=== PATIENT | male | born 1965 | race Caucasian/White ===

== ENCOUNTER 2021-09-02 17:45 | Inpatient (IN) | payer OTHER, SELFPAY ==
--- NOTE | 2021-09-02 18:03 | ED.PSYCH ---
HPI - Psych General Chief Complaint: Anxiety Stated Complaint: anxiety Time Seen by Provider: 09/02/21 17:59 Source: patient Mode of arrival: ambulatory Limitations: no limitations History of Present Illness HPI Narrative: 56 year old male past medical history significant for anxiety presents to the emergency department with racing thoughts, and anxiety x3 days progressively worsening. Patient tells me 3 days ago he was discharged from the hospital where he was admitted for 2 weeks for an intentional clonazepam overdose. He tells me ever since he got out everything seems to be going over his head, he tells me he can not handle daily stressors he feels overwhelmed, racing thoughts. He tells me he has been pacing around his house for the past 3 days not sleeping well. He tells me I just feel like I want to kill everyone I asked him what he meant by that he tells me I do not know not literally. He denies visual, auditory and tactile hallucinations. He denies suicidal ideation and homicidal ideation. However, he tells me if things do not get better he feels like he is going to become suicidal. No medical complaints at this time. MD complaint: suicidal ideation Related Data Home Medications Medication Instructions Recorded Confirmed aripiprazole 10 mg tablet 1 tab PO QAM 09/02/21 09/02/21 buprenorphine 12 mg-naloxone 3 mg 1 film SUBLINGUAL BID 09/02/21 09/02/21 sublingual film buspirone 30 mg tablet 1 tab PO BID 09/02/21 09/02/21 clonazepam 1 mg tablet 1 tab PO TID PRN 09/02/21 09/02/21 eszopiclone 3 mg tablet 1 tab PO BEDTIME PRN 09/02/21 09/02/21 fluticasone propionate 50 2 spray INTRANASAL DAILY 09/02/21 09/02/21 mcg/actuation nasal spray,suspension gabapentin 300 mg capsule 1 cap PO BID 09/02/21 09/02/21 hydroxyzine HCl 25 mg tablet 1 tab PO QID 09/02/21 09/02/21 naloxone 4 mg/actuation nasal spray 1 spray INTRANASAL PER PKG DIR PRN 09/02/21 09/02/21 nicotine (polacrilex) 4 mg gum 4 mg PO Q2H PRN 09/02/21 09/02/21 nicotine 21 mg/24 hr daily 1 patch TOPICAL DAILY 09/02/21 09/02/21 transdermal patch propranolol 10 mg tablet 1 tab PO BID 09/02/21 09/02/21 venlafaxine 150 mg 1 cap PO QAM 09/02/21 09/02/21 capsule,extended release 24 hr Allergies Allergy/AdvReac Type Severity Reaction Status Date / Time No Known Allergies Allergy Verified 09/02/21 20:06 Review of Systems Review of Systems: Constitutional : No Fever, No Chills ENT/Mouth : No sore throat, No Rhinorrhea Eyes: No Eye Pain, No Swelling, No Redness Cardiovascular : No Chest Pain, No SOB Respiratory : No Cough, No Sputum Gastrointestinal : No Nausea, No Vomiting, No Diarrhea, No abdominal Pain Genitourinary : No Dysuria, No Hematuria Musculoskeletal : No joint pain, No Myalgias, No Joint Swelling Skin : No Skin Lesions, No rash Neuro : No Weakness, No Numbness Psych : No Anxiety, No Depression, No SI/HI/AH/VH All other systems reviewed and are negative Yes all other systems are reviewed and are negative [facility] Past Medical History Attestation statement: The following information was validated with the patient. Source: old records reviewed and nursing notes reviewed Social History Social History Advance Directives: No Advance Directives Information Provided: No Physical Exam Vital Signs: Vital Signs: Last Vital Signs Temp 97.2 F 09/02/21 20:39 Pulse 83 09/02/21 20:39 Resp 16 09/02/21 18:05 BP 125/87 09/02/21 20:39 Pulse Ox 95 09/02/21 20:39 BMI result Body Mass Index 36.2 VSS Appearance: Alert.? Oriented X3.? No acute distress.? Head: Normocephalic, atraumatic, no step-offs or deformities Eyes: Pupils equal, round and reactive to light.? ENT: Pharynx normal.? Neck: Normal inspection.? Neck supple.? CVS: Normal heart rate and rhythm.? Pulses normal.? Respiratory: No respiratory distress.? Breath sounds normal.? Abdomen: Soft and nontender.? Skin: Skin warm and dry.? Normal skin color.? Normal skin turgor.? Extremities: No lower extremity edema.? No calf ttp. 5/5 strength to bilateral upper and lower extremities Back: No midline tenderness, no C-spine tenderness, full range of motion, no CVA tenderness bilaterally Neuro: Oriented X 3.? No motor deficit.? No sensory deficit. CN 2-12 intact Course Reevaluation(s) Reevaluation #1: Jannie from care team saw patient. Clarification patient got out of [facility] the detox on August 29 seen by N on the . Time: 21:45 Reevaluation #2: CBC within normal limits. No acute electrolyte abnormalities. Transaminases elevated, alk-phos elevated and bilirubin elevated however patient is not tender upon palpation to abdomen. No abdominal complaints. Could be chronic in nature. Urine clean. Urine positive for fentanyl, marijuana. Negative for ethanol. Patient COVID negative. At this time he will be placed in physician observation to allow more time to be evaluated by the behavioral health team in the morning. At time observation was started patient common cooperative no acute distress. Vital signs within normal limits. Time: 22:38 MDM - Psych MDM Narrative Medical decision making narrative: 1804 56 yo m pmhx anxiety presents w/ recurrent panic attacks and agoraphobia X1 week worsening. Currently denying SI and HI. Denies visual, auditory and tactile hallucinations. Physical exam significant for an anxious 56-year-old male. Neuro intact to nonfocal. Lungs clear regular rate and rhythm. Plan basic labs, N consult. Medical Records Attestation: I reviewed the patient's medical records. Lab Data Attestation: I reviewed the patient's lab results. Result diagrams: 09/02/21 19:52 09/02/21 19:52 Labs: Lab Results 09/02/21 09/02/21 09/02/21 Range/Units 18:19 18:19 18:19 WBC (4.8-10.8) X10*3/uL RBC (4.60-5.80) X10*6/uL Hgb (14.0-18.0) g/dl Hct (42.0-52.0) % MCV (80.0-98.0) fL MCH (27.0-33.0) pg MCHC (31.0-36.0) g/dl RDW (11.0-16.0) % Plt Count (160-400) X10*3/uL MPV (9.4-12.4) fL Immature Gran % (Auto) Neut % (Auto) Lymph % (Auto) Dickenson % (Auto) Eos % (Auto) Baso % (Auto) Lymph # (Auto) Dickenson # (Auto) Eos # (Auto) Baso # (Auto) Abs Immat Gran (auto) Absolute Neuts (auto) Absolute Nucleated RBC (0.0-0.012) X10*3/uL Nucleated RBC % (auto) (0.0-0.2) /100WBC Neutrophils % (Manual) (45-73) % Lymphocytes % (Manual) (20-40) % Monocytes % (Manual) (2-11) % Eosinophils % (Manual) (0-4) % Abs Neuts (Manual) (2.0-8.3) X10*3/uL Lymphocytes # (Manual) (1.2-4.9) X10*3/uL Monocytes # (Manual) (0.1-1.2) X10*3/uL Eosinophils # (Manual) (0.0-0.4) X10*3/uL Platelet Estimate (NORMAL) Plt Morphology Comment RBC Morphology Sodium (135-145) mmol/L Potassium (3.3-5.1) mmol/L Chloride (96-108) mmol/L Carbon Dioxide (22-29) mmol/L Anion Gap (12-20) BUN (9-16) mg/dL Creatinine (0.5-1.4) mg/dL Estim Creat Clear Calc Estimated GFR Random Glucose (60-115) mg/dL Calcium (8.4-10.2) mg/dL Total Bilirubin (0.0-1.0) mg/dL AST (5-37) U/L ALT (0-40) U/L Alkaline Phosphatase (39-117) U/L Total Protein (6.5-8.0) g/dL Albumin (3.5-5.0) g/dL Urine Color YELLOW Urine Appearance CLEAR Urine pH 7.0 (5.0-8.0) Ur Specific Chester 1.010 (1.005-1.025) Urine Protein NEG (NEG-TRACE) MG/DL Urine Glucose (UA) NEG (NEG) MG/DL Urine Ketones NEG (NEG) MG/DL Urine Blood NEG (NEG) Urine Nitrite NEG (NEG) Ur Leukocyte Esterase NEG (NEG) Urine Opiates Screen Not Detected (Not Detect) Urine Fentanyl Screen POSITIVE H (Not Detect) Ur Barbiturates Screen Not Detected (Not Detect) Ur Phencyclidine Scrn Not Detected (Not Detect) Ur Amphetamines Screen Not Detected (Not Detect) U Benzodiazepines Scrn Not Detected (Not Detect) Urine Cocaine Screen Not Detected (Not Detect) U Marijuana (THC) Screen POSITIVE H (Not Detect) Ethyl Alcohol mg/dL COVID-19 ([facility]KE) Negative (Negative) COVID-19 Clin Com See Note 09/02/21 09/02/21 09/02/21 Range/Units 19:46 19:52 19:52 WBC 6.5 (4.8-10.8) X10*3/uL RBC 4.62 (4.60-5.80) X10*6/uL Hgb 14.3 (14.0-18.0) g/dl Hct 42.7 (42.0-52.0) % MCV 92.4 (80.0-98.0) fL MCH 31.0 (27.0-33.0) pg MCHC 33.5 (31.0-36.0) g/dl RDW 12.8 (11.0-16.0) % Plt Count 171 (160-400) X10*3/uL MPV 12.2 (9.4-12.4) fL Immature Gran % (Auto) Cancelled Neut % (Auto) Cancelled Lymph % (Auto) Cancelled Dickenson % (Auto) Cancelled Eos % (Auto) Cancelled Baso % (Auto) Cancelled Lymph # (Auto) Cancelled Dickenson # (Auto) Cancelled Eos # (Auto) Cancelled Baso # (Auto) Cancelled Abs Immat Gran (auto) Cancelled Absolute Neuts (auto) Cancelled Absolute Nucleated RBC 0.000 (0.0-0.012) X10*3/uL Nucleated RBC % (auto) 0.0 (0.0-0.2) /100WBC Neutrophils % (Manual) 75 H (45-73) % Lymphocytes % (Manual) 20 (20-40) % Monocytes % (Manual) 4 (2-11) % Eosinophils % (Manual) 1 (0-4) % Abs Neuts (Manual) 4.9 (2.0-8.3) X10*3/uL Lymphocytes # (Manual) 1.3 (1.2-4.9) X10*3/uL Monocytes # (Manual) 0.3 (0.1-1.2) X10*3/uL Eosinophils # (Manual) 0.1 (0.0-0.4) X10*3/uL Platelet Estimate NORMAL (NORMAL) Plt Morphology Comment NORMAL RBC Morphology NORMAL Sodium 140 (135-145) mmol/L Potassium 4.2 (3.3-5.1) mmol/L Chloride 104 (96-108) mmol/L Carbon Dioxide 28 (22-29) mmol/L Anion Gap 12 (12-20) BUN 11 (9-16) mg/dL Creatinine 0.78 (0.5-1.4) mg/dL Estim Creat Clear Calc 141.4 Estimated GFR > 60 Random Glucose 115 (60-115) mg/dL Calcium 9.3 (8.4-10.2) mg/dL Total Bilirubin 1.2 H (0.0-1.0) mg/dL AST 108 H (5-37) U/L ALT 97 H (0-40) U/L Alkaline Phosphatase 155 H (39-117) U/L Total Protein 6.6 (6.5-8.0) g/dL Albumin 4.0 (3.5-5.0) g/dL Urine Color Urine Appearance Urine pH (5.0-8.0) Ur Specific Chester (1.005-1.025) Urine Protein (NEG-TRACE) MG/DL Urine Glucose (UA) (NEG) MG/DL Urine Ketones (NEG) MG/DL Urine Blood (NEG) Urine Nitrite (NEG) Ur Leukocyte Esterase (NEG) Urine Opiates Screen (Not Detect) Urine Fentanyl Screen (Not Detect) Ur Barbiturates Screen (Not Detect) Ur Phencyclidine Scrn (Not Detect) Ur Amphetamines Screen (Not Detect) U Benzodiazepines Scrn (Not Detect) Urine Cocaine Screen (Not Detect) U Marijuana (THC) Screen (Not Detect) Ethyl Alcohol < 10 mg/dL COVID-19 ([facility]) (Negative) COVID-19 Clin Com Critical Care Time Critical Care Time Critical Care Time: No Discharge Plan Discharge Clinical Impression: Acute anxiety, Depression Prescriptions: No Action clonazepam 1 mg tablet 1 tab PO TID PRN (Reason: Anxiety) 0RF venlafaxine 150 mg capsule,extended release 24hr 1 cap PO QAM 0RF propranolol 10 mg tablet 1 tab PO BID 0RF nicotine (polacrilex) 4 mg gum 4 mg PO Q2H PRN (Reason: Nicotine Cravings) 0RF buspirone 30 mg tablet 1 tab PO BID 0RF nicotine 21 mg/24 hr patch 24 hour 1 patch topical DAILY 0RF gabapentin 300 mg capsule 1 cap PO BID 0RF hydroxyzine HCl 25 mg tablet 1 tab PO QID 0RF aripiprazole 10 mg tablet 1 tab PO QAM 0RF eszopiclone 3 mg tablet 1 tab PO BEDTIME PRN (Reason: Sleep) 0RF buprenorphine-naloxone 12-3 mg film 1 film sublingual BID 0RF naloxone 4 mg/actuation spray,non-aerosol 1 spray intranasal PER PKG DIR PRN (Reason: Opioid Overdose) 0RF fluticasone propionate [Flonase] 50 mcg/actuation Ocate,Suspension 2 spray INTRANASAL DAILY 0RF Rx Instructions: administer into each nostril
[2021-09-02 18:05] VITALS: BP 133/84; BP 135/94; PULSE 73; PULSE 76; RESP 16; TEMP 36.5; O2SAT 93; O2SAT 98; BMI 36.2
[2021-09-02 18:26] LABS: Appearance Urine CLEAR; Color Urine YELLOW; Glucose Urine UA NEG (NEG); Leukocyte Esterase Urine NEG (NEG); Nitrite Urine NEG (NEG); Urine Blood NEG (NEG); Urine Ketones NEG (NEG); Urine Protein NEG (NEG-TRACE)
[2021-09-02] MEDS: LORazepam 1 MG TABLET PO (18:37)
[2021-09-02 18:41] LABS: Amphetamine Screen Urine Not Detected (Not Detect); Barbiturates, Urine Not Detected (Not Detect); Benzodiazepines Screen Urine Not Detected (Not Detect); Cannabinoid Screen Urine POSITIVE (Not Detect); Cocaine Screen Urine Not Detected (Not Detect); Fentanyl, urine POSITIVE (Not Detect); Opiate Screen Urine Not Detected (Not Detect); Phencyclidine Screen Urine Not Detected (Not Detect)
[2021-09-02 18:43] LABS: COVID-19 Test Negative (Negative)
--- NOTE | 2021-09-02 18:46 | PC.NURSE ---
patient referred to [facility]
--- NOTE | 2021-09-02 19:30 | PHA.MEDREC ---
Pharmacy Consult ? Medication Reconciliation Pharmacy has completed the medication reconciliation.
[2021-09-02 19:57] LABS: Hematocrit 42.7 % (42.0-52.0); Hemoglobin 14.3 g/dl (14.0-18.0); Mean Corpuscular HGB Conc 33.5 g/dl (31.0-36.0); Mean Corpuscular Volume 92.4 fL (80.0-98.0); Mean Platelet Volume 12.2 fL (9.4-12.4); Platelet Count 171 X10*3/uL (160-400); Red Blood Count 4.62 X10*6/uL (4.60-5.80); Red Cell Distribution Width 12.8 % (11.0-16.0)
[2021-09-02 20:00] LABS: WBC ABN SCTR FOR CBC 1
[2021-09-02 20:10] LABS: Ethanol < 10 mg/dL
[2021-09-02 20:15] LABS: Alanine Aminotransferase 97 U/L (0-40); Alkaline Phosphatase 155 U/L (39-117); Anion Gap 12 (12-20); Aspartate Amino Transferase 108 U/L (5-37); Bilirubin Total 1.2 mg/dL (0.0-1.0); Blood Urea Nitrogen 11 mg/dL (9-16); Calcium 9.3 mg/dL (8.4-10.2); Carbon Dioxide 28 mmol/L (22-29); Chloride 104 mmol/L (96-108); Creatinine Clr Calc Pharmacy 141.4; Estimated Glomerular Filt Rate > 60; Glucose Random 115 mg/dL (60-115); Potassium 4.2 mmol/L (3.3-5.1); Sodium 140 mmol/L (135-145); Total Protein 6.6 g/dL (6.5-8.0)
[2021-09-02 20:21] LABS: White Blood Count 6.5 X10*3/uL (4.8-10.8)
[2021-09-02 20:22] LABS: Eosinophils Absolute Manual 0.1 X10*3/uL (0.0-0.4); Eosinophils Percent Manual 1 % (0-4); Lymphocytes Absolute Manual 1.3 X10*3/uL (1.2-4.9); Lymphocytes Percent Manual 20 % (20-40); Monocytes Absolute Manual 0.3 X10*3/uL (0.1-1.2); Monocytes Percent Manual 4 % (2-11); Neutrophils Percent Manual 75 % (45-73); Platelet Estimate NORMAL (NORMAL); Platelet Morphology Comment NORMAL; RBC Morphology NORMAL
[2021-09-02 20:23] LABS: Neutrophils Absolute Manual 4.9 X10*3/uL (2.0-8.3)
[2021-09-02] MEDS: Buprenorphine/Naloxone 12/3 mg FILM 1 FILM SUBLINGUAL (20:35)
[2021-09-02] MEDS: Propranolol HCL 10 MG TABLET PO (20:35)
[2021-09-02] MEDS: busPIRone HCl 10 MG TABLET 30 MG PO (20:35)
[2021-09-02] MEDS: Gabapentin 300 MG CAPSULE PO (20:36)
[2021-09-02] MEDS: hydrOXYzine HCL 25 MG TABLET PO (20:36)
[2021-09-02 20:39] VITALS: BP 125/87; PULSE 83; TEMP 36.2; O2SAT 95
[2021-09-02] MEDS: clonazePAM 1 MG TABLET PO (20:50)
[2021-09-02 22:00] VITALS: BP 116/79; PULSE 79; TEMP 36.8; O2SAT 95
[2021-09-02] MEDS: Zolpidem Tartrate 5 MG TABLET PO (22:42)
--- NOTE | 2021-09-02 22:42 | MHC.CARE ---
CARE team contacted [facility] re: pt who has been referred for eval in ED. Per [facility], pt contacted their crisis support line at approx 4pm today and shared that he had been anxious and pacing around his home, no recommendations were made at that time and [facility] documentation indicated that the pt did not require a full evaluation. Pt had been evaluated by [facility] on 08/31/21, and the disposition was for respite placement. Pt was not agreeable to this and elected to discharge home at that time. Pt discharged from [facility] (detox) on 08/29/21. CARE team will meet with pt to assess for level of risk for harm to himself and to gain further clarification about what pt had reported to the ED provider that he had recently discharged from a hospital after being admitted for two weeks s/p a clonazepam overdose, which is contradictory to what was indicated in [facility] agency records (both crisis and detox).
--- NOTE | 2021-09-03 01:49 | MHC.CARE ---
Late entry: N unable to send a clinician to see pt. CARE team met with pt to complete evaluation. Disposition is for voluntary psychiatric admission.
--- NOTE | 2021-09-03 06:46 | PC.NURSE ---
Patient slept through the night, no distress observed/reported, behavior appropriate, medication compliant, disposition care team is voluntary bed search, will continue to monitor.
[2021-09-03] MEDS: Propranolol HCL 10 MG TABLET PO ×2 (08:36→20:30)
[2021-09-03] MEDS: Venlafaxine HCl ER 150 MG CAP.ER.24H PO (08:36)
[2021-09-03] MEDS: Gabapentin 300 MG CAPSULE PO (08:36)
[2021-09-03] MEDS: Buprenorphine/Naloxone 12/3 mg FILM 1 FILM SUBLINGUAL ×2 (08:36→21:01)
[2021-09-03] MEDS: hydrOXYzine HCL 25 MG TABLET PO ×4 (08:36→20:30)
[2021-09-03] MEDS: Nicotine 21 MG PATCH.TD24 TRANSDERMA (08:36)
[2021-09-03] MEDS: ARIPiprazole 10 MG TABLET PO (08:36)
[2021-09-03] MEDS: busPIRone HCl 10 MG TABLET 30 MG PO ×2 (08:36→20:30)
[2021-09-03] MEDS: clonazePAM 1 MG TABLET PO ×3 (08:43→17:56)
[2021-09-03 09:31] VITALS: BP 107/67; PULSE 60; RESP 18; TEMP 36.4; O2SAT 95
[2021-09-03 10:46] VITALS: BP 115/85; PULSE 59; RESP 16; O2SAT 95
--- NOTE | 2021-09-03 14:32 | ECG_ITS ---
Test Reason : PSYCH MEDS Blood Pressure : / mmHG Vent. Rate : 065 BPM Atrial Rate : 065 BPM P-R Int : 178 ms QRS Dur : 088 ms QT Int : 438 ms P-R-T Axes : 056 060 059 degrees QTc Int : 455 ms Normal sinus rhythm Normal ECG No previous ECGs available Referred By: Tony Amin Electronically Signed By:STAN OJEDA MD
--- NOTE | 2021-09-03 14:44 | PC.NURSE ---
nurse to nurse given to m5 rn kandy
--- NOTE | 2021-09-03 17:16 | PC.NURSE ---
patient is alert and oriented x 4 verbalized understanding of admission to m5 escorted to floor with belongings by staff
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
[2021-09-03 20:15] VITALS: BP 121/84; PULSE 91
[2021-09-03] MEDS: Gabapentin 400 MG CAPSULE PO (20:30)
--- NOTE | 2021-09-03 23:31 | PC.ADMIT ---
Patient is a single 56 year old , Montenegrin speaking male admitted as a CV admission to at 1711 and placed on 15 minute safety checks. Patient admitted with a diagnosis of agoraphobia/panic disorder; sedative, hypnotic, anxiolytic use disorder. The patient mentioned that he also has sleep apnea and uses a cpap machine at home. Patient said that he has been inpatient in other facilities but not at [facility]. The patient said that he has become more anxious due to his daughter living too far away for him to visit due to his agoraphobia. He said that he has also had a lot of grief since his mother approximately 3 years ago. He was cooperative with his admission and denied any previous overdose on his Klonopin. He did say that he had been overtaking that medication to control his anxiety. Patient feels that his isolation during COVID has also been a factor. All legals were signed, patient oriented to the unit. Patient said that he had no SI, HI, AH or VH.Patient compliant with medications and meals and appears to be settling into the unit. Orders were obtained from provider.
[2021-09-04 06:00] VITALS: BP 138/90; PULSE 93; RESP 16; TEMP 36.3; O2SAT 95
[2021-09-04 08:50] LABS: Estimated Average Glucose 100 mg/dL; Hemoglobin A1c % 5.1 %
[2021-09-04] MEDS: ARIPiprazole 10 MG TABLET PO (08:50)
[2021-09-04] MEDS: Buprenorphine/Naloxone 12/3 mg FILM 1 FILM SUBLINGUAL ×2 (08:50→20:14)
[2021-09-04] MEDS: Nicotine 21 MG PATCH.TD24 TRANSDERMA (08:50)
[2021-09-04] MEDS: busPIRone HCl 10 MG TABLET 30 MG PO ×2 (08:50→20:14)
[2021-09-04] MEDS: Venlafaxine HCl ER 150 MG CAP.ER.24H PO (08:50)
[2021-09-04] MEDS: Gabapentin 400 MG CAPSULE PO ×3 (08:50→20:14)
[2021-09-04] MEDS: clonazePAM 1 MG TABLET PO ×3 (08:50→17:57)
[2021-09-04] MEDS: hydrOXYzine HCL 25 MG TABLET PO ×4 (08:50→20:14)
[2021-09-04] MEDS: Propranolol HCL 10 MG TABLET PO ×2 (08:50→20:14)
[2021-09-04 09:06] LABS: Alanine Aminotransferase 68 U/L (0-40); Albumin Level 4.1 g/dL (3.5-5.0); Alkaline Phosphatase 159 U/L (39-117); Aspartate Amino Transferase 52 U/L (5-37); Bilirubin Direct 0.4 mg/dL (0.0-0.5); Bilirubin Total 0.8 mg/dL (0.0-1.0); Cholesterol 167 mg/dL; HDL Cholesterol 53 mg/dL; LDL Cholesterol Calculated 87 mg/dl; Total Protein 6.8 g/dL (6.5-8.0); Triglycerides 139 mg/dL
[2021-09-04 09:26] LABS: Free T4 (Free Thyroxine) 1.09 ng/dL (0.71-1.85)
[2021-09-04 09:53] LABS: Reflex LDLD? No
--- NOTE | 2021-09-04 10:29 | P.PNPSI_ITS ---
Subjective Subjective Date of Service: 09/04/21 Reason For Visit: anxiety Subjective Notes: Sheth Warning and Conditional Voluntary Interim History: Density Control Puncher gave Sheth warning Density Control Puncher reviewed documentation Patient reports that up until this past July, his AV was overall at his normal functioning with average anxiety and able to more less enjoy his life. He said he was without panic attacks, able to go out and shop, see his daughter and drive around. Was not pacing and not feeling overwhelmed with anxiety. Patient said he has 4 months been using more clonazepam than prescribed and having to taper himself off towards the end of the month and in hindsight realizes that the anxiety was probably a little worse than he realized. However he says that this July something triggered his anxiety to significantly worsen. One thing was that he tried to go back to work but after only 1 day found it to overwhelming and quit going; this feeling of failure was somewhat triggering. Also patient's daughter is expecting her 2nd baby; he says he is prone to catastrophizing which was triggered by this upcoming event. Patient found himself having constant racing thoughts of various worries. He also started noticing OCD like obsessional intrusive thoughts in gave the example of when he is backing his car out of the driveway at his daughter's he has a sudden thought 1 of his grandson is behind a car; he gets out to check but as soon as he gets back in his car he starts worrying about it again cigarette and he will have to go back up to 3 times to make sure it is truly out. While some of these behaviors were present in the past there only at a very minimal level and did not interfere with life. Patient reports that this urged to keep walking also seems to be triggered by anxiety and he can not seem to stop himself even to the point of getting blisters on his feet. Patient denies any SI, HI or AVH. He also says that he has been sober and that he did not use anything other than cannabis. Patient has insight to know that his excessive worries are irrational but he can stop having. Patient reports he has been on Effexor for about 6 months at the current dose which seem to lower his depression he has been on Abilify for about a year. He also also started on gabapentin a few weeks ago for nerve pain Patient said he wants treatment and communications writer discussed options. Patient agrees to increasing venlafaxine Mental Status Exam Mental Status Exam Narrative: Pt is alert and oriented; behavior is cooperative, friendly and calm; patient is not in distress; unkempt, scruffy, almost disheveled; mood is described as anxious affect congruent; eye contact appropriate; Speech is normal rate, volume and prosody and not pressured; some psychomotor agitation present; thought process is organized and goal directed; Thought content is on tx and dealing with intrusive worries; otherwise pertinent to relevant topics and without any delusional content, paranoid ideations or grandiosity; denies any SI/HI. There is no evidence of perceptual disturbance. Patients insight and judgment are impaired. Diagnostics Vital Signs (24Hr): Vital Signs - 24 hr 09/03/21 10:46 09/03/21 20:15 09/04/21 06:00 Temperature 97.4 F Pulse Rate 59 91 93 Respiratory Rate 16 16 Blood Pressure 115/85 121/84 138/90 H Pulse Oximetry 95 95 BMI result Body Mass Index 36.2 Labs Results: 09/02/21 19:52 09/02/21 19:52 Labs: Laboratory Results - last 48 hr 09/02/21 09/02/21 09/02/21 18:19 18:19 18:19 WBC RBC Hgb Hct MCV MCH MCHC RDW Plt Count MPV Immature Gran % (Auto) Neut % (Auto) Lymph % (Auto) [place] % (Auto) Eos % (Auto) Baso % (Auto) Lymph # (Auto) [place] # (Auto) Eos # (Auto) Baso # (Auto) Abs Immat Gran (auto) Absolute Neuts (auto) Absolute Nucleated RBC Nucleated RBC % (auto) Neutrophils % (Manual) Lymphocytes % (Manual) Monocytes % (Manual) Eosinophils % (Manual) Abs Neuts (Manual) Lymphocytes # (Manual) Monocytes # (Manual) Eosinophils # (Manual) Platelet Estimate Plt Morphology Comment RBC Morphology Sodium Potassium Chloride Carbon Dioxide Anion Gap BUN Creatinine Estim Creat Clear Calc Estimated GFR Random Glucose Estimat Average Glucose Hemoglobin A1c % Calcium Total Bilirubin Direct Bilirubin AST ALT Alkaline Phosphatase Total Protein Albumin Triglycerides Cholesterol LDL Cholesterol, Calc HDL Cholesterol Free T4 Urine Color YELLOW Urine Appearance CLEAR Urine pH 7.0 Ur Specific [place] 1.010 Urine Protein NEG Urine Glucose (UA) NEG Urine Ketones NEG Urine Blood NEG Urine Nitrite NEG Ur Leukocyte Esterase NEG Urine Opiates Screen Not Detected Urine Fentanyl Screen POSITIVE H Ur Barbiturates Screen Not Detected Ur Phencyclidine Scrn Not Detected Ur Amphetamines Screen Not Detected U Benzodiazepines Scrn Not Detected Urine Cocaine Screen Not Detected U Marijuana (THC) Screen POSITIVE H Ethyl Alcohol COVID-19 ([facility]) Negative COVID-19 Clin Com See Note 09/02/21 09/02/21 09/02/21 19:46 19:52 19:52 WBC 6.5 RBC 4.62 Hgb 14.3 Hct 42.7 MCV 92.4 MCH 31.0 MCHC 33.5 RDW 12.8 Plt Count 171 MPV 12.2 Immature Gran % (Auto) Cancelled Neut % (Auto) Cancelled Lymph % (Auto) Cancelled [place] % (Auto) Cancelled Eos % (Auto) Cancelled Baso % (Auto) Cancelled Lymph # (Auto) Cancelled [place] # (Auto) Cancelled Eos # (Auto) Cancelled Baso # (Auto) Cancelled Abs Immat Gran (auto) Cancelled Absolute Neuts (auto) Cancelled Absolute Nucleated RBC 0.000 Nucleated RBC % (auto) 0.0 Neutrophils % (Manual) 75 H Lymphocytes % (Manual) 20 Monocytes % (Manual) 4 Eosinophils % (Manual) 1 Abs Neuts (Manual) 4.9 Lymphocytes # (Manual) 1.3 Monocytes # (Manual) 0.3 Eosinophils # (Manual) 0.1 Platelet Estimate NORMAL Plt Morphology Comment NORMAL RBC Morphology NORMAL Sodium 140 Potassium 4.2 Chloride 104 Carbon Dioxide 28 Anion Gap 12 BUN 11 Creatinine 0.78 Estim Creat Clear Calc 141.4 Estimated GFR > 60 Random Glucose 115 Estimat Average Glucose Hemoglobin A1c % Calcium 9.3 Total Bilirubin 1.2 H Direct Bilirubin AST 108 H ALT 97 H Alkaline Phosphatase 155 H Total Protein 6.6 Albumin 4.0 Triglycerides Cholesterol LDL Cholesterol, Calc HDL Cholesterol Free T4 Urine Color Urine Appearance Urine pH Ur Specific [place] Urine Protein Urine Glucose (UA) Urine Ketones Urine Blood Urine Nitrite Ur Leukocyte Esterase Urine Opiates Screen Urine Fentanyl Screen Ur Barbiturates Screen Ur Phencyclidine Scrn Ur Amphetamines Screen U Benzodiazepines Scrn Urine Cocaine Screen U Marijuana (THC) Screen Ethyl Alcohol < 10 COVID-19 ([facility]) COVID-19 Clin Com 09/04/21 09/04/21 08:05 08:05 WBC RBC Hgb Hct MCV MCH MCHC RDW Plt Count MPV Immature Gran % (Auto) Neut % (Auto) Lymph % (Auto) [place] % (Auto) Eos % (Auto) Baso % (Auto) Lymph # (Auto) [place] # (Auto) Eos # (Auto) Baso # (Auto) Abs Immat Gran (auto) Absolute Neuts (auto) Absolute Nucleated RBC Nucleated RBC % (auto) Neutrophils % (Manual) Lymphocytes % (Manual) Monocytes % (Manual) Eosinophils % (Manual) Abs Neuts (Manual) Lymphocytes # (Manual) Monocytes # (Manual) Eosinophils # (Manual) Platelet Estimate Plt Morphology Comment RBC Morphology Sodium Potassium Chloride Carbon Dioxide Anion Gap BUN Creatinine Estim Creat Clear Calc Estimated GFR Random Glucose Estimat Average Glucose 100 Hemoglobin A1c % 5.1 Calcium Total Bilirubin 0.8 Direct Bilirubin 0.4 AST 52 H ALT 68 H Alkaline Phosphatase 159 H Total Protein 6.8 Albumin 4.1 Triglycerides 139 Cholesterol 167 LDL Cholesterol, Calc 87 HDL Cholesterol 53 Free T4 1.09 Urine Color Urine Appearance Urine pH Ur Specific [place] Urine Protein Urine Glucose (UA) Urine Ketones Urine Blood Urine Nitrite Ur Leukocyte Esterase Urine Opiates Screen Urine Fentanyl Screen Ur Barbiturates Screen Ur Phencyclidine Scrn Ur Amphetamines Screen U Benzodiazepines Scrn Urine Cocaine Screen U Marijuana (THC) Screen Ethyl Alcohol COVID-19 ([facility]) COVID-19 Clin Com Medications Medications Current Medications Acetaminophen (Acetaminophen 325 Mg Tablet) 650 mg PO Q6H PRN PRN Reason: Headache/Pain Mild Scale (1-3) Al Hydroxide/Mg Hydroxide (Magnesium Hydrox/Alum Hydrox 30 Ml Oral.Susp) 30 ml PO Q6H PRN PRN Reason: Heartburn/Nausea Aripiprazole (Aripiprazole 10 Mg Tablet) 10 mg PO DAILY [facility] Last Admin: 09/04/21 08:50 Dose: 10 mg Documented by: Buprenorphine/Naloxone (Buprenorphine/Naloxone 12/3 Mg Film) 1 film SUBLINGUAL BID [facility] Last Admin: 09/04/21 08:50 Dose: 1 film Documented by: Buspirone HCl (Buspirone Hcl 10 Mg Tablet) 30 mg PO BID [facility] Last Admin: 09/04/21 08:50 Dose: 30 mg Documented by: Clonazepam (Clonazepam 1 Mg Tablet) 1 mg PO TID PRN PRN Reason: Anxiety Last Admin: 09/04/21 08:50 Dose: 1 mg Documented by: Fluticasone Propionate (Fluticasone Propionate Nasal 16 [address] [place]) 2 spray NOSTRIL-B DAILY [facility] Last Admin: 09/04/21 08:53 Dose: Not Given Documented by: Gabapentin (Gabapentin 400 Mg Capsule) 400 mg PO TID [facility] Last Admin: 09/04/21 08:50 Dose: 400 mg Documented by: Hydroxyzine HCl (Hydroxyzine Hcl 25 Mg Tablet) 25 mg PO QID [facility] Last Admin: 09/04/21 08:50 Dose: 25 mg Documented by: Magnesium Hydroxide (Milk Of Magnesia 30 Ml Oral.Susp) 30 ml PO DAILY PRN PRN Reason: Constipation Nicotine (Nicotine 21 Mg Patch.Td24) 21 mg TRANSDERMA DAILY [facility] Last Admin: 09/04/21 08:50 Dose: 21 mg Documented by: Nicotine Polacrilex (Nicotine Polacrilex 2 Mg Gum) 4 mg BUCCAL Q2H PRN PRN Reason: Nicotine Cravings Non-Formulary Medication (Eszopiclone) 1 tab PO BEDTIME PRN PRN Reason: Sleep Propranolol HCl (Propranolol Hcl 10 Mg Tablet) 10 mg PO BID [facility]; Protocol Last Admin: 09/04/21 08:50 Dose: 10 mg Documented by: Trazodone HCl (Trazodone Hcl 100 Mg Tablet) 100 mg PO BEDTIME PRN PRN Reason: Insomnia Venlafaxine HCl (Venlafaxine Hcl Er 150 Mg Cap.Er.24h) 150 mg PO DAILY [facility] Last Admin: 09/04/21 08:50 Dose: 150 mg Documented by: Allergies Allergies Allergy/AdvReac Type Severity Reaction Status Date / Time No Known Allergies Allergy Verified 09/02/21 20:06 Assessment & Plan Assessment & Plan (1) PINA (generalized anxiety disorder): Status: Acute Code(s): F41.1 - Generalized anxiety disorder (2) Panic disorder: Status: Acute Code(s): F41.0 - Panic disorder [episodic paroxysmal anxiety] (3) Opioid use disorder, moderate, in early remission, on maintenance therapy: Status: Acute Code(s): F11.21 - Opioid dependence, in remission (4) Obsessive-compulsive disorder with good or fair insight: Status: Acute Code(s): F42.9 - Obsessive-compulsive disorder, unspecified (5) OFELIA (obstructive sleep apnea): Status: Acute Code(s): G47.33 - Obstructive sleep apnea (adult) (pediatric) Assessment and Plan: on CPAP Plan Tommy is a 56 y.o. male who carries a dx of MDD, recurrent and PINA. He [place] [facility] [place]21 due to racing thoughts and worsening anxiety since he was discharged 3 days ago from [facility] for benzodiazepine withdrawal. Has been overusing his prescription and running out early. Upon discharge from [facility], pt was set up with VNA and locked box. On MAT, suboxone. Utox positive for fentanyl and cannabis (has medical card, uses dispensary product). Pt reports he struggles with agoraphobia, has been pacing (attributes to anxiety, denies akathesia but may benefit from trial on cogentin to rule it out), and poor sleep. -patient meets criteria for OCD with good insight; it seems that these symptoms were present but at a much lower level and have been significantly exacerbated by worsening anxiety. Patient agrees to medication changes. Patient has history of therapy once a week for 10 years however has never engaged in CBT therapy or specifically for OCD Plan: Patient on CV Q 15 minute checks Will increase Effexor ER to 187.5 mg to help address OCD symptoms; may need to titrate further as OCD symptoms typically require over typical max doses Continue clonazepam 1 mg t.i.d. p.r.n.; patient agrees that the goal will be to cut this down over time CPAP ordered Patient started on gabapentin by outside PCP; admitting provider increased to 400 mg t.i.d. takes lunesta at home, however willing to take trazodone as lunesta is not on formulary. Says in the past, trazodone 100-200 mg was effective. (not a respiratory depressant; may help with anxiety; locked box at home).? Monitor response to medications. Monitor for safety in the milieu. Discharge on stabilization. Patient seen. Chart reviewed. Discussed with team. Obtain collateral contact info?as needed I spent minutes with the patient and/or on the patient floor today, greater than?50% of which was spent counseling/coordinating care. Patient educated on: diagnosis, medication risk/benefits, substance abuse and therapeutic strategies Informed Consent: understands Reason for contiued inpatient stay Substantial Risk for: rapid decompensation
[2021-09-04] MEDS: Venlafaxine HCl ER 37.5 MG CAP.ER.24H PO (15:38)
[2021-09-04 18:00] VITALS: BP 136/82
[2021-09-04] MEDS: traZODone HCL 100 MG TABLET PO ×2 (20:52→22:08)
[2021-09-05 08:27] VITALS: BP 130/77; PULSE 92; RESP 16
[2021-09-05] MEDS: ARIPiprazole 10 MG TABLET PO (08:30)
[2021-09-05] MEDS: Nicotine 21 MG PATCH.TD24 TRANSDERMA (08:30)
[2021-09-05] MEDS: Buprenorphine/Naloxone 12/3 mg FILM 1 FILM SUBLINGUAL ×2 (08:31→17:22)
[2021-09-05] MEDS: busPIRone HCl 10 MG TABLET 30 MG PO ×2 (08:31→20:22)
[2021-09-05] MEDS: Propranolol HCL 10 MG TABLET PO ×3 (08:31→20:21)
[2021-09-05] MEDS: Acetaminophen 325 MG TABLET 650 MG PO ×2 (08:31→17:02)
[2021-09-05] MEDS: clonazePAM 1 MG TABLET PO ×3 (08:31→18:16)
[2021-09-05] MEDS: Gabapentin 400 MG CAPSULE PO ×3 (08:31→20:21)
[2021-09-05] MEDS: hydrOXYzine HCL 25 MG TABLET PO ×4 (08:31→20:20)
--- NOTE | 2021-09-05 10:31 | P.PNPSI_ITS ---
Subjective Subjective Date of Service: 09/05/21 Reason For Visit: anxiety Interim History: pt reports anxiety is a little better today. He reports feeling more calm...less obsessed with counting, and that his racing worries have slowed down. Pt says he continues to have urge to pace, walk the halls. He cannot describe it other than this urge feels intolerable to ignore. Pt agrees to further increase in venlafaxine preferring to risk being at higher than needed dose rather than be underdosed and have to wait longer for titration. No SI/HI. Sleeping ok but did not have CPAP; order placed. pt is sitting in chair calmly, no leg, foot or body movement and he does not seem to have akathesia; also pt says it wears off towards the evening and does not seem to be restless leg syndrome. It seems more likely to be due to anxiety, or and OCD-like urge. He was started on Propranol at detox, but does not know what for. Pt is not sure if urge to lessened by propranolol but will try to monitor; agrees to extra dose. pt wondering if increase in gabapentin would reduce anxiety and urge to pace specifications writer discussed hx of abilify which was started at 5mg and increased to 10mg; pt says his provider wondered if bipolar. Pt says he has periods where he's depressed and periods where he's feeling happy both of which last from 3-7 days. During these periods of feeling happy, He denies every bipolar symptom except for over spending. He shared one episode where he spent about $3000 on [employer] equipment, much of not needed (bought 3 binoculars since it seemed cool) and made him struggle financially. Mental Status Exam Mental Status Exam Narrative: Pt is alert and oriented; behavior is cooperative, friendly and calm; patient is not in distress; unkempt, scruffy, almost disheveled; mood is described as a little less anxious ? affect congruent; eye contact appropriate; Speech is n ormal rate, volume and prosody and not pressured; some psychomotor agitation present; thought process is organized and goal directed; Thought content is on tx and dealing with intrusive worries; otherwise pertinent to relevant topics and without any delusional content, paranoid ideations or grandiosity; denies any SI/HI. There is no evidence of perceptual disturbance. ?Patients insight and judgment is adequate.? Diagnostics Vital Signs (24Hr): Vital Signs - 24 hr 09/04/21 18:00 09/05/21 08:27 Pulse Rate 92 Respiratory Rate 16 Blood Pressure 136/82 130/77 BMI result Body Mass Index 36.2 Labs Results: 09/02/21 19:52 09/02/21 19:52 Labs: Laboratory Results - last 48 hr 09/04/21 09/04/21 08:05 08:05 Estimat Average Glucose 100 Hemoglobin A1c % 5.1 Total Bilirubin 0.8 Direct Bilirubin 0.4 AST 52 H ALT 68 H Alkaline Phosphatase 159 H Total Protein 6.8 Albumin 4.1 Triglycerides 139 Cholesterol 167 LDL Cholesterol, Calc 87 HDL Cholesterol 53 Free T4 1.09 Medications Medications Current Medications Acetaminophen (Acetaminophen 325 Mg Tablet) 650 mg PO Q6H PRN PRN Reason: Headache/Pain Mild Scale (1-3) Last Admin: 09/05/21 08:31 Dose: 650 mg Documented by: Al Hydroxide/Mg Hydroxide (Magnesium Hydrox/Alum Hydrox 30 Ml Oral.Susp) 30 ml PO Q6H PRN PRN Reason: Heartburn/Nausea Aripiprazole (Aripiprazole 10 Mg Tablet) 10 mg PO DAILY [facility] Last Admin: 09/05/21 08:30 Dose: 10 mg Documented by: Buprenorphine/Naloxone (Buprenorphine/Naloxone 12/3 Mg Film) 1 film SUBLINGUAL BID [facility] Last Admin: 09/05/21 08:31 Dose: 1 film Documented by: Buspirone HCl (Buspirone Hcl 10 Mg Tablet) 30 mg PO BID [facility] Last Admin: 09/05/21 08:31 Dose: 30 mg Documented by: Clonazepam (Clonazepam 1 Mg Tablet) 1 mg PO TID PRN PRN Reason: Anxiety Last Admin: 09/05/21 08:31 Dose: 1 mg Documented by: Fluticasone Propionate (Fluticasone Propionate Nasal 16 Gm [place]) 2 spray NOSTRIL-B DAILY [facility] Last Admin: 09/05/21 08:14 Dose: Not Given Documented by: Gabapentin (Gabapentin 400 Mg Capsule) 400 mg PO TID [facility] Last Admin: 09/05/21 08:31 Dose: 400 mg Documented by: Hydroxyzine HCl (Hydroxyzine Hcl 25 Mg Tablet) 25 mg PO QID [facility] Last Admin: 09/05/21 08:31 Dose: 25 mg Documented by: Magnesium Hydroxide (Milk Of Magnesia 30 Ml Oral.Susp) 30 ml PO DAILY PRN PRN Reason: Constipation Nicotine (Nicotine 21 Mg Patch.Td24) 21 mg TRANSDERMA DAILY [facility] Last Admin: 09/05/21 08:30 Dose: 21 mg Documented by: Nicotine Polacrilex (Nicotine Polacrilex 2 Mg Gum) 4 mg BUCCAL Q2H PRN PRN Reason: Nicotine Cravings Non-Formulary Medication (Eszopiclone) 1 tab PO BEDTIME PRN PRN Reason: Sleep Propranolol HCl (Propranolol Hcl 10 Mg Tablet) 10 mg PO BID [facility]; Protocol Last Admin: 09/05/21 08:31 Dose: 10 mg Documented by: Trazodone HCl (Trazodone Hcl 100 Mg Tablet) 100 mg PO BEDTIME PRN PRN Reason: Insomnia Last Admin: 09/04/21 22:08 Dose: 100 mg Documented by: Venlafaxine HCl 150 mg/ (Venlafaxine HCl 37.5 mg) 187.5 mg PO DAILY [facility] Last Admin: 09/05/21 08:31 Dose: 187.5 mg Documented by: Allergies Allergies Allergy/AdvReac Type Severity Reaction Status Date / Time No Known Allergies Allergy Verified 09/02/21 20:06 Assessment & Plan Assessment & Plan (1) Obsessive-compulsive disorder with good or fair insight: Status: Acute Code(s): F42.9 - Obsessive-compulsive disorder, unspecified (2) PINA (generalized anxiety disorder): Status: Acute Code(s): F41.1 - Generalized anxiety disorder (3) Panic disorder: Status: Acute Code(s): F41.0 - Panic disorder [episodic paroxysmal anxiety] (4) Opioid use disorder, moderate, in early remission, on maintenance therapy: Status: Acute Code(s): F11.21 - Opioid dependence, in remission (5) OFELIA (obstructive sleep apnea): Status: Acute Code(s): G47.33 - Obstructive sleep apnea (adult) (pediatric) Assessment and Plan: on CPAP Plan Tommy is a 56 y.o. male who carries a dx of MDD, recurrent and PINA. He [place] [facility] on [place] due to racing thoughts and worsening anxiety since he was discharged 3 days ago from [facility] for benzodiazepine withdrawal. Has been overusing his prescription and running out early. Upon discharge from [facility], pt was set up with VNA and locked box. On MAT, suboxone. Utox positive for fentanyl and cannabis (has medical card, uses dispensary product). Pt reports he struggles with agoraphobia, has been pacing (attributes to anxiety, denies akathesia but may benefit from trial on cogentin to rule it out), and poor sleep. -patient meets criteria for OCD with good insight; it seems that these symptoms were present but at a much lower level and have been significantly exacerbated by worsening anxiety. Patient agrees to medication changes. Patient has history of therapy once a week for 10 years however has never engaged in CBT therapy or specifically for OCD 09/05 -Urge to pace: pt is sitting in chair calmly, no leg, foot or body movement and he does not seem to have akathesia; also pt says it wears off towards the evening and does not seem to be restless leg syndrome. It seems more likely to be due to anxiety, or and OCD-like urge. He was started on Propranol at detox, but does not know what for. Pt is not sure if urge to lessened by propranolol but will try to monitor; agrees to extra dose.? -screened for bipolar; pt does not meet criteria but does have hx of overspending during happy episodes (no other manic symptoms) Plan: Patient on CV Q 15 minute checks INCREASE Effexor ER to 225 mg to help address OCD symptoms; may need to titrate further as OCD symptoms typically require over typical max doses -increase propranlol to 10mg TID (up from bid); to see if helps with urge to pace; BP wnl Continue clonazepam 1 mg t.i.d. p.r.n.; patient agrees that the goal will be to cut this down over time CPAP ordered Patient started on gabapentin by outside PCP; admitting provider increased to 400 mg t.i.d. takes lunesta at home, however willing to take trazodone as lunesta is not on formulary. Says in the past, trazodone 100-200 mg was effective. (not a respiratory depressant; may help with anxiety; locked box at home).? Monitor response to medications. Monitor for safety in the milieu. Discharge on stabilization. Patient seen. Chart reviewed. Discussed with team. Obtain collateral contact info?as needed I spent minutes with the patient and/or on the patient floor today, greater than?50% of which was spent counseling/coordinating care. Patient educated on: diagnosis, medication risk/benefits and medical condition (cpap; pt says uses consistently at home) Informed Consent: understands Reason for contiued inpatient stay Substantial Risk for: med/psych decompensation
[2021-09-05 14:46] VITALS: BP 130/78; PULSE 81
[2021-09-05 17:37] VITALS: BP 125/77; PULSE 73; TEMP 36.2; O2SAT 93
[2021-09-05] MEDS: traZODone HCL 100 MG TABLET PO ×2 (21:23→23:20)
[2021-09-06 06:00] VITALS: BP 111/62; PULSE 54; RESP 18; TEMP 36.3
[2021-09-06 07:00] VITALS: BMI 36.9
[2021-09-06] MEDS: busPIRone HCl 10 MG TABLET 30 MG PO ×2 (08:41→19:27)
[2021-09-06] MEDS: Nicotine 21 MG PATCH.TD24 TRANSDERMA (08:41)
[2021-09-06] MEDS: ARIPiprazole 10 MG TABLET PO (08:42)
[2021-09-06] MEDS: hydrOXYzine HCL 25 MG TABLET PO ×4 (08:42→19:28)
[2021-09-06] MEDS: Venlafaxine HCl ER 75 MG CAP.ER.24H 225 MG PO (08:42)
[2021-09-06] MEDS: Propranolol HCL 10 MG TABLET PO ×3 (08:42→19:28)
[2021-09-06] MEDS: Gabapentin 400 MG CAPSULE PO ×2 (08:42→15:24)
[2021-09-06] MEDS: Buprenorphine/Naloxone 12/3 mg FILM 1 FILM SUBLINGUAL ×2 (08:43→16:42)
[2021-09-06] MEDS: Acetaminophen 325 MG TABLET 650 MG PO (08:59)
[2021-09-06] MEDS: clonazePAM 1 MG TABLET PO ×3 (08:59→19:28)
[2021-09-06] MEDS: Fluticasone Propionate Nasal 16 GM SPRAY 2 SPRAY NOSTRIL-B (09:00)
--- NOTE | 2021-09-06 16:04 | P.PNPSI_ITS ---
Subjective Subjective Date of Service: 09/06/21 Reason For Visit: anxiety Interim History: Patient seen and discussed with team. Patient evaluated today and upon interview pt reports my legs are still restless but propranolol has helped, would like to continue on it, denies SE. Says the recent increase in gabapentin has helped, asks for this to be increased to 600 mg TID. Also asks to be able to take bedtime Suboxone at 1700, as he says it can be activating. Mood is a little down, attributes this to too much down time on the unit, procrastinating on making phone calls, and thinking about people he needs to talk to on the outside In the milieu, patient is safe and appropriate in behavior. Denies SI/SIB/HI upon inquiry. Denies irritability or assaultive ideation. Says he feels safe. Medication Compliance: Yes Side effects from medications: No Attending Groups: Yes Review of Systems Acute medical concerns: No Medical Review of Systems: unchanged Mental Status Exam Mental Status Exam Narrative: Pt is alert and oriented; behavior is cooperative, friendly and calm; patient is not in distress; unkempt, scruffy, almost disheveled; mood is described as good, affect congruent; eye contact appropriate; Speech is normal rate, volume and prosody and not pressured; some psychomotor agitation present as patient gets up to move around during interview; thought process is organized and goal directed; Thought content is on tx and dealing with intrusive worries; otherwise pertinent to relevant topics and without any delusional content, paranoid ideations or grandiosity; denies any SI/HI. There is no evidence of perceptual disturbance. ?Patients insight and judgment are adequate.? Diagnostics Vital Signs (24Hr): Vital Signs - 24 hr 09/05/21 17:37 09/06/21 06:00 Temperature 97.1 F 97.3 F Pulse Rate 73 54 Respiratory Rate 18 Blood Pressure 125/77 111/62 Pulse Oximetry 93 BMI result Body Mass Index 36.9 Labs Results: 09/02/21 19:52 09/02/21 19:52 Medications Medications Current Medications Acetaminophen (Acetaminophen 325 Mg Tablet) 650 mg PO Q6H PRN PRN Reason: Headache/Pain Mild Scale (1-3) Last Admin: 09/06/21 08:59 Dose: 650 mg Documented by: Al Hydroxide/Mg Hydroxide (Magnesium Hydrox/Alum Hydrox 30 Ml Oral.Susp) 30 ml PO Q6H PRN PRN Reason: Heartburn/Nausea Aripiprazole (Aripiprazole 10 Mg Tablet) 10 mg PO DAILY [facility] Last Admin: 09/06/21 08:42 Dose: 10 mg Documented by: Buprenorphine/Naloxone (Buprenorphine/Naloxone 12/3 Mg Film) 1 film SUBLINGUAL BID [facility] Last Admin: 09/06/21 08:43 Dose: 1 film Documented by: Buspirone HCl (Buspirone Hcl 10 Mg Tablet) 30 mg PO BID [facility] Last Admin: 09/06/21 08:41 Dose: 30 mg Documented by: Clonazepam (Clonazepam 1 Mg Tablet) 1 mg PO TID PRN PRN Reason: Anxiety Last Admin: 09/06/21 15:24 Dose: 1 mg Documented by: Fluticasone Propionate (Fluticasone Propionate Nasal 16 Gm [place]) 2 spray NOSTRIL-B DAILY [facility] Last Admin: 09/06/21 09:00 Dose: 2 spray Documented by: Gabapentin (Gabapentin 400 Mg Capsule) 400 mg PO TID [facility] Last Admin: 09/06/21 15:24 Dose: 400 mg Documented by: Hydroxyzine HCl (Hydroxyzine Hcl 25 Mg Tablet) 25 mg PO QID [facility] Last Admin: 09/06/21 15:59 Dose: 25 mg Documented by: Magnesium Hydroxide (Milk Of Magnesia 30 Ml Oral.Susp) 30 ml PO DAILY PRN PRN Reason: Constipation Nicotine (Nicotine 21 Mg Patch.Td24) 21 mg TRANSDERMA DAILY [facility] Last Admin: 09/06/21 08:41 Dose: 21 mg Documented by: Nicotine Polacrilex (Nicotine Polacrilex 2 Mg Gum) 4 mg BUCCAL Q2H PRN PRN Reason: Nicotine Cravings Propranolol HCl (Propranolol Hcl 10 Mg Tablet) 10 mg PO TID [facility]; Protocol Last Admin: 09/06/21 15:59 Dose: 10 mg Documented by: Trazodone HCl (Trazodone Hcl 100 Mg Tablet) 100 mg PO BEDTIME PRN PRN Reason: Insomnia Last Admin: 09/05/21 23:20 Dose: 100 mg Documented by: Venlafaxine HCl (Venlafaxine Hcl Er 75 Mg Cap.Er.24h) 225 mg PO DAILY [facility] Last Admin: 09/06/21 08:42 Dose: 225 mg Documented by: Allergies Allergies Allergy/AdvReac Type Severity Reaction Status Date / Time No Known Allergies Allergy Verified 09/02/21 20:06 Assessment & Plan Assessment & Plan (1) Obsessive-compulsive disorder with good or fair insight: Status: Acute Code(s): F42.9 - Obsessive-compulsive disorder, unspecified (2) PINA (generalized anxiety disorder): Status: Acute Code(s): F41.1 - Generalized anxiety disorder (3) Panic disorder: Status: Acute Code(s): F41.0 - Panic disorder [episodic paroxysmal anxiety] (4) Opioid use disorder, moderate, in early remission, on maintenance therapy: Status: Acute Code(s): F11.21 - Opioid dependence, in remission (5) OFELIA (obstructive sleep apnea): Status: Acute Code(s): G47.33 - Obstructive sleep apnea (adult) (pediatric) Assessment and Plan: on CPAP Plan Tommy is a 56 y.o. male who carries a dx of MDD, recurrent and PINA. He presented to [facility] on 09/02/21 due to racing thoughts and worsening anxiety since he was discharged 3 days ago from [facility] for benzodiazepine withdrawal. Has been overusing his prescription and running out early. Upon discharge from [facility], pt was set up with VNA and locked box. On MAT, suboxone. Utox positive for fentanyl and cannabis (has medical card, uses dispensary product). Pt reports he struggles with agoraphobia, has been pacing (attributes to anxiety, denies akathesia but may benefit from trial on cogentin to rule it out), and poor sleep. -patient meets criteria for OCD with good insight; it seems that these symptoms were present but at a much lower level and have been significantly exacerbated by worsening anxiety. Patient agrees to medication changes. Patient has history of therapy once a week for 10 years however has never engaged in CBT therapy or specifically for OCD 09/05 -Urge to pace: pt is sitting in chair calmly, no leg, foot or body movement and he does not seem to have akathesia; also pt says it wears off towards the evening and does not seem to be restless leg syndrome. It seems more likely to be due to anxiety, or and OCD-like urge. He was started on Propranol at detox, but does not know what for. Pt is not sure if urge to lessened by propranolol but will try to monitor; agrees to extra dose.? -screened for bipolar; pt does not meet criteria but does have hx of overspending during happy episodes (no other manic symptoms) 09/06: -Will increase gabapentin to 600 mg TID for restlessness, anxiety, agitation. Will continue propranolol due to reported benefit, may consider increasing as tolerated. Plan: Patient on CV Q 15 minute checks INCREASE Effexor ER to 225 mg to help address OCD symptoms; may need to titrate further as OCD symptoms typically require over typical max doses -increase propranlol to 10mg TID (up from bid); to see if helps with urge to pace; BP wnl Continue clonazepam 1 mg t.i.d. p.r.n.; patient agrees that the goal will be to cut this down over time CPAP ordered Patient started on gabapentin by outside PCP; admitting provider increased to 400 mg t.i.d. takes lunesta at home, however willing to take trazodone as lunesta is not on formulary. Says in the past, trazodone 100-200 mg was effective. (not a respiratory depressant; may help with anxiety; locked box at home).? Monitor response to medications. Monitor for safety in the milieu. Discharge on stabilization. Patient seen. Chart reviewed. Discussed with team. Obtain collateral contact info?as needed I spent minutes with the patient and/or on the patient floor today, greater than?50% of which was spent counseling/coordinating care. Reason for contiued inpatient stay Substantial Risk for: rapid decompensation and med/psych decompensation
[2021-09-06 18:00] VITALS: BP 124/68; PULSE 89; RESP 16; TEMP 36.4; O2SAT 98
[2021-09-06] MEDS: Gabapentin 300 MG CAPSULE 600 MG PO (19:28)
[2021-09-06] MEDS: traZODone HCL 100 MG TABLET PO (22:42)
[2021-09-07 06:00] VITALS: BP 115/76; PULSE 90; RESP 16; TEMP 36.5; O2SAT 94
[2021-09-07] MEDS: Buprenorphine/Naloxone 12/3 mg FILM 1 FILM SUBLINGUAL ×2 (08:39→16:59)
[2021-09-07] MEDS: ARIPiprazole 10 MG TABLET PO (08:39)
[2021-09-07] MEDS: Fluticasone Propionate Nasal 16 GM SPRAY 2 SPRAY NOSTRIL-B (08:39)
[2021-09-07] MEDS: Nicotine 21 MG PATCH.TD24 TRANSDERMA (08:39)
[2021-09-07] MEDS: Venlafaxine HCl ER 75 MG CAP.ER.24H 225 MG PO (08:40)
[2021-09-07] MEDS: Gabapentin 300 MG CAPSULE 600 MG PO ×3 (08:40→20:02)
[2021-09-07] MEDS: Propranolol HCL 10 MG TABLET PO (08:40)
[2021-09-07] MEDS: hydrOXYzine HCL 25 MG TABLET PO ×4 (08:40→20:02)
[2021-09-07] MEDS: busPIRone HCl 10 MG TABLET 30 MG PO ×2 (08:45→20:01)
[2021-09-07] MEDS: clonazePAM 1 MG TABLET PO ×2 (08:45→12:43)
--- NOTE | 2021-09-07 10:31 | P.PNPSI_ITS ---
Subjective Subjective Date of Service: 09/07/21 Reason For Visit: anxiety Interim History: pt says that his anxiety continues to improve and he's hardly counting things at all; he still worries about various things, but says it's less intense. However, pt continues to feel urge to pace; he says it is a little less intense and the urge is less frequent, but it's still bothersome and today he had to leave group for it. Pt says this urge seemed to start when at detox 2 weeks ago, but it was minimal and only worsened post discharge; he is still on Clonazepam 1mg TID making prolonged w/drawal unlikely. Pt says he has no thoughts about pacing and doing so does not lower anxiety, it's just an urge he feels in his legs. Pt agrees to lower Abilify to 7.5mg to see if perhaps it's a med side-effect. Also agrees to try higher dose of propranolol. He denies depression; denies any SI. Feeling guilty that he's not available for his daugher who is giving soon and needs him to help w/ grandson. reviewed substance abuse hx. sober from etoh for 10 years sober from prescription opioids for 5 years since on suboxone only tried cocaine 2x in life; last time 2 years ago only tried heroin 2x and not since 5 years ago bought Xanax on [address] once last month normally uses cannabis from dispensery but sometimes smokes with friend who procures his own Mental Status Exam Mental Status Exam Narrative: Pt is alert and oriented; behavior is cooperative, friendly and calm; patient is not in distress; unkempt, scruffy, almost disheveled; mood is described as a little better ? affect congruent; eye contact appropriate; Speech is normal rate, volume and prosody and not pressured; some psychomotor agitation present as patient gets up to move around during interview; thought process is organized and goal directed; Thought content is on tx and dealing with intrusive worries; otherwise pertinent to relevant topics and without any delusional content, paranoid ideations or grandiosity; denies any SI/HI. There is no evidence of perceptual disturbance. ?Patients insight and judgment are adequate.? Diagnostics Vital Signs (24Hr): Vital Signs - 24 hr 09/06/21 18:00 Temperature 97.6 F Pulse Rate 89 Respiratory Rate 16 Blood Pressure 124/68 Pulse Oximetry 98 BMI result Body Mass Index 36.9 Labs Results: 09/02/21 19:52 09/02/21 19:52 Medications Medications Current Medications Acetaminophen (Acetaminophen 325 Mg Tablet) 650 mg PO Q6H PRN PRN Reason: Headache/Pain Mild Scale (1-3) Last Admin: 09/06/21 08:59 Dose: 650 mg Documented by: Al Hydroxide/Mg Hydroxide (Magnesium Hydrox/Alum Hydrox 30 Ml Oral.Susp) 30 ml PO Q6H PRN PRN Reason: Heartburn/Nausea Aripiprazole (Aripiprazole 10 Mg Tablet) 10 mg PO DAILY [facility] Last Admin: 09/07/21 08:39 Dose: 10 mg Documented by: Buprenorphine/Naloxone (Buprenorphine/Naloxone 12/3 Mg Film) 1 film SUBLINGUAL BID@0800,1700 [facility] Last Admin: 09/07/21 08:39 Dose: 1 film Documented by: Buspirone HCl (Buspirone Hcl 10 Mg Tablet) 30 mg PO BID [facility] Last Admin: 09/07/21 08:45 Dose: 30 mg Documented by: Clonazepam (Clonazepam 1 Mg Tablet) 1 mg PO TID PRN PRN Reason: Anxiety Last Admin: 09/07/21 08:45 Dose: 1 mg Documented by: Fluticasone Propionate (Fluticasone Propionate Nasal 16 Gm [place]) 2 spray NOSTRIL-B DAILY [facility] Last Admin: 09/07/21 08:39 Dose: 2 spray Documented by: Gabapentin (Gabapentin 300 Mg Capsule) 600 mg PO TID [facility] Last Admin: 09/07/21 08:40 Dose: 600 mg Documented by: Hydroxyzine HCl (Hydroxyzine Hcl 25 Mg Tablet) 25 mg PO QID [facility] Last Admin: 09/07/21 08:40 Dose: 25 mg Documented by: Magnesium Hydroxide (Milk Of Magnesia 30 Ml Oral.Susp) 30 ml PO DAILY PRN PRN Reason: Constipation Nicotine (Nicotine 21 Mg Patch.Td24) 21 mg TRANSDERMA DAILY [facility] Last Admin: 09/07/21 08:39 Dose: 21 mg Documented by: Nicotine Polacrilex (Nicotine Polacrilex 2 Mg Gum) 4 mg BUCCAL Q2H PRN PRN Reason: Nicotine Cravings Propranolol HCl (Propranolol Hcl 10 Mg Tablet) 10 mg PO TID [facility]; Protocol Last Admin: 09/07/21 08:40 Dose: 10 mg Documented by: Trazodone HCl (Trazodone Hcl 100 Mg Tablet) 100 mg PO BEDTIME PRN PRN Reason: Insomnia Last Admin: 09/06/21 22:42 Dose: 100 mg Documented by: Venlafaxine HCl (Venlafaxine Hcl Er 75 Mg Cap.Er.24h) 225 mg PO DAILY [facility] Last Admin: 09/07/21 08:40 Dose: 225 mg Documented by: Allergies Allergies Allergy/AdvReac Type Severity Reaction Status Date / Time No Known Allergies Allergy Verified 09/02/21 20:06 Assessment & Plan Assessment & Plan (1) Obsessive-compulsive disorder with good or fair insight: Status: Acute Code(s): F42.9 - Obsessive-compulsive disorder, unspecified (2) PINA (generalized anxiety disorder): Status: Acute Code(s): F41.1 - Generalized anxiety disorder (3) Panic disorder: Status: Acute Code(s): F41.0 - Panic disorder [episodic paroxysmal anxiety] (4) Opioid use disorder, moderate, in early remission, on maintenance therapy: Status: Acute Code(s): F11.21 - Opioid dependence, in remission (5) OFELIA (obstructive sleep apnea): Status: Acute Code(s): G47.33 - Obstructive sleep apnea (adult) (pediatric) Assessment and Plan: on CPAP Plan Tommy is a 56 y.o. male who carries a dx of MDD, recurrent and PINA. He presented [place] [facility] on 09/02[place]21 due to racing thoughts and worsening anxiety since he was discharged 3 days ago from [facility] for benzodiazepine withdrawal. Has been overusing his prescription and running out early. Upon discharge from [facility], pt was set up with VNA and locked box. On MAT, suboxone. Utox positive for fentanyl and cannabis (has medical card, uses dispensary product). Pt reports he struggles with agoraphobia, has been pacing (attributes to anxiety, denies akathesia but may benefit from trial on cogentin to rule it out), and poor sleep. -patient meets criteria for OCD with good insight; it seems that these symptoms were present but at a much lower level and have been significantly exacerbated by worsening anxiety. Patient agrees to medication changes. Patient has history of therapy once a week for 10 years however has never engaged in CBT therapy or specifically for OCD 09/05 -Urge to pace: pt is sitting in chair calmly, no leg, foot or body movement and he does not seem to have akathesia; also pt says it wears off towards the evening and does not seem to be restless leg syndrome. It seems more likely to be due to anxiety, or and OCD-like urge. He was started on Propranol at detox, but does not know what for. Pt is not sure if urge to lessened by propranolol but will try to monitor; agrees to extra dose.? -screened for bipolar; pt does not meet criteria but does have hx of overs pending during happy episodes (no other manic symptoms) 09/07 Plan: Patient on CV Q 15 minute checks Effexor ER to 225 mg to help address OCD symptoms; may need to titrate further as OCD symptoms typically require over typical max doses -one time trial of Propranolol 20mg to see if helps with Pacing -lowered abilify to 7.5mg in case pt does have akathesia (though seems less likely) will leave on though given outpt providers concern for bipolar; not sure why it was increased myya3eu to 10mg; -increase propranlol to 10mg TID (up from bid); to see if helps with urge to pace; BP wnl Continue clonazepam 1 mg t.i.d. p.r.n.; patient agrees that the goal will be to cut this down over time cpap/bipap being used gabapentine increased to 600mg mg t.i.d. takes lunesta at home, however willing to take trazodone as lunesta is not on formulary. Says in the past, trazodone 100-200 mg was effective. (not a respiratory depressant; may help with anxiety; locked box at home).? Monitor response to medications. Monitor for safety in the milieu. Discharge on stabilization. Patient seen. Chart reviewed. Discussed with team. Obtain collateral contact info?as needed I spent minutes with the patient and/or on the patient floor today, greater than?50% of which was spent counseling/coordinating care. Patient educated on: diagnosis, medication risk/benefits, substance abuse and therapeutic strategies Informed Consent: understands Reason for contiued inpatient stay Substantial Risk for: med/psych decompensation
[2021-09-07] MEDS: Propranolol HCL 20 MG TABLET PO (13:50)
[2021-09-07] MEDS: Nicotine Polacrilex 2 MG GUM 4 MG BUCCAL (14:08)
[2021-09-07 18:00] VITALS: BP 119/68; PULSE 79; RESP 16; TEMP 36.8; O2SAT 98
[2021-09-07] MEDS: traZODone HCL 100 MG TABLET PO (21:36)
[2021-09-08 06:00] VITALS: BP 122/68; PULSE 66; RESP 16; TEMP 36.4; O2SAT 97
[2021-09-08] MEDS: Fluticasone Propionate Nasal 16 GM SPRAY 2 SPRAY NOSTRIL-B (09:10)
[2021-09-08] MEDS: hydrOXYzine HCL 25 MG TABLET PO ×4 (09:10→19:58)
[2021-09-08] MEDS: Buprenorphine/Naloxone 12/3 mg FILM 1 FILM SUBLINGUAL ×2 (09:10→17:43)
[2021-09-08] MEDS: ARIPiprazole 5 MG TABLET 7.5 MG PO (09:10)
[2021-09-08] MEDS: Venlafaxine HCl ER 75 MG CAP.ER.24H 225 MG PO (09:11)
[2021-09-08] MEDS: Gabapentin 300 MG CAPSULE 600 MG PO ×3 (09:11→19:57)
[2021-09-08] MEDS: Nicotine 21 MG PATCH.TD24 TRANSDERMA (09:11)
[2021-09-08] MEDS: busPIRone HCl 10 MG TABLET 30 MG PO ×2 (09:11→19:58)
[2021-09-08] MEDS: clonazePAM 1 MG TABLET PO ×3 (09:15→19:01)
--- NOTE | 2021-09-08 11:52 | P.PNPSI_ITS ---
Subjective Subjective Date of Service: 09/08/21 Reason For Visit: anxiety Interim History: pt feels better, less anxious, no counting. pt says less pacing and feels that increased propranolol has helped. Still trouble falling asleep so agreed to increaed trazodone. Would like to hold off increasing effexor for now. No Si. pt called daughter and had good talk Mental Status Exam Mental Status Exam Narrative: Pt is alert and oriented; behavior is cooperative, friendly and calm; patient is not in distress; better groomed, combed hair, clean cloths; mood is described as a little better ? affect congruent; eye contact appropriate; Speech is normal rate, volume and prosody and not pressured; less psychomotor agitation present; thought process is organized and goal directed; Thought content is on tx and dealing with intrusive worries; otherwise pertinent to relevant topics and witho ut any delusional content, paranoid ideations or grandiosity; denies any SI/HI. There is no evidence of perceptual disturbance. ?Patients insight and judgment are adequate.? Diagnostics Vital Signs (24Hr): Vital Signs - 24 hr 09/07/21 18:00 09/08/21 06:00 Temperature 98.2 F 97.6 F Pulse Rate 79 66 Respiratory Rate 16 16 Blood Pressure 119/68 122/68 Pulse Oximetry 98 97 BMI result Body Mass Index 36.9 Labs Results: 09/02/21 19:52 09/02/21 19:52 Medications Medications Current Medications Acetaminophen (Acetaminophen 325 Mg Tablet) 650 mg PO Q6H PRN PRN Reason: Headache/Pain Mild Scale (1-3) Last Admin: 09/06/21 08:59 Dose: 650 mg Documented by: Al Hydroxide/Mg Hydroxide (Magnesium Hydrox/Alum Hydrox 30 Ml Oral.Susp) 30 ml PO Q6H PRN PRN Reason: Heartburn/Nausea Aripiprazole (Aripiprazole 5 Mg Tablet) 7.5 mg PO DAILY [facility] Last Admin: 09/08/21 09:10 Dose: 7.5 mg Documented by: Buprenorphine/Naloxone (Buprenorphine/Naloxone 12/3 Mg Film) 1 film SUBLINGUAL BID@0800,1700 [facility] Last Admin: 09/08/21 09:10 Dose: 1 film Documented by: Buspirone HCl (Buspirone Hcl 10 Mg Tablet) 30 mg PO BID [facility] Last Admin: 09/08/21 09:11 Dose: 30 mg Documented by: Clonazepam (Clonazepam 1 Mg Tablet) 1 mg PO TID PRN PRN Reason: Anxiety Last Admin: 09/08/21 09:15 Dose: 1 mg Documented by: Fluticasone Propionate (Fluticasone Propionate Nasal 16 Gm [place]) 2 spray NOSTRIL-B DAILY [facility] Last Admin: 09/08/21 09:10 Dose: 2 spray Documented by: Gabapentin (Gabapentin 300 Mg Capsule) 600 mg PO TID [facility] Last Admin: 09/08/21 09:11 Dose: 600 mg Documented by: Hydroxyzine HCl (Hydroxyzine Hcl 25 Mg Tablet) 25 mg PO QID [facility] Last Admin: 09/08/21 09:10 Dose: 25 mg Documented by: Magnesium Hydroxide (Milk Of Magnesia 30 Ml Oral.Susp) 30 ml PO DAILY PRN PRN Reason: Constipation Nicotine (Nicotine 21 Mg Patch.Td24) 21 mg TRANSDERMA DAILY [facility] Last Admin: 09/08/21 09:11 Dose: 21 mg Documented by: Nicotine Polacrilex (Nicotine Polacrilex 2 Mg Gum) 4 mg BUCCAL Q2H PRN PRN Reason: Nicotine Cravings Last Admin: 09/07/21 14:08 Dose: 4 mg Documented by: Propranolol HCl (Propranolol Hcl 20 Mg Tablet) 20 mg PO TID [facility]; Protocol Trazodone HCl (Trazodone Hcl 100 Mg Tablet) 200 mg PO BEDTIME PRN PRN Reason: Insomnia Trazodone HCl (Trazodone Hcl 50 Mg Tablet) 50 mg PO BEDTIME PRN PRN Reason: early walking/insomnia Venlafaxine HCl (Venlafaxine Hcl Er 75 Mg Cap.Er.24h) 225 mg PO DAILY [facility] Last Admin: 09/08/21 09:11 Dose: 225 mg Documented by: Allergies Allergies Allergy/AdvReac Type Severity Reaction Status Date / Time No Known Allergies Allergy Verified 09/02/21 20:06 Assessment & Plan Assessment & Plan (1) Obsessive-compulsive disorder with good or fair insight: Status: Acute Code(s): F42.9 - Obsessive-compulsive disorder, unspecified (2) PINA (generalized anxiety disorder): Status: Acute Code(s): F41.1 - Generalized anxiety disorder (3) Panic disorder: Status: Acute Code(s): F41.0 - Panic disorder [episodic paroxysmal anxiety] (4) Opioid use disorder, moderate, in early remission, on maintenance therapy: Status: Acute Code(s): F11.21 - Opioid dependence, in remission (5) OFELIA (obstructive sleep apnea): Status: Acute Code(s): G47.33 - Obstructive sleep apnea (adult) (pediatric) Assessment and Plan: on CPAP Plan Tommy is a 56 y.o. male who carries a dx of MDD, recurrent and PINA. He presented to [facility] on 09/02/21 due to racing thoughts and worsening anxiety since he was discharged [address] [facility] for benzodiazepine withdrawal. Has been overusing his prescription and running out early. Upon discharge from [facility], pt was set up with VNA and locked box. On MAT, suboxone. Utox positive for fentanyl and cannabis (has medical card, uses dispensary product). Pt reports he struggles with agoraphobia, has been pacing (attributes to anxiety, denies akathesia but may benefit from trial on cogentin to rule it out), and poor sleep. -patient meets criteria for OCD with good insight; it seems that these symptoms were present but at a much lower level and have been significantly exacerbated by worsening anxiety. Patient agrees to medication changes. Patient has history of therapy once a week for 10 years however has never engaged in CBT therapy or specifically for OCD 09/05 -Urge to pace: pt is sitting in chair calmly, no leg, foot or body movement and he does not seem to have akathesia; also pt says it wears off towards the ev ening and does not seem to be restless leg syndrome. It seems more likely to be due to anxiety, or and OCD-like urge. He was started on Propranol at detox, but does not know what for. Pt is not sure if urge to lessened by propranolol but will try to monitor; agrees to extra dose.? -screened for bipolar; pt does not meet criteria but does have hx of overspending during happy episodes (no other manic symptoms) 09/06: -Will increase gabapentin to 600 mg TID for restlessness, anxiety, agitation. Wi ll continue propranolol due to reported benefit, may consider increasing as tolerated. 09/08 less anxious, less pacing with increased propranol Plan: Patient on CV Q 15 minute checks ?Effexor ER to 225 mg to help address OCD symptoms; may need to titrate further as OCD symptoms typically require over typical max doses -Propranolol 20mg TID for Pacing -lowered abilify to 7.5mg in case pt does have akathesia (though seems less likely) will leave on though given outpt providers concern for bipolar; not sure why it was increased [id number] to 10mg;? CPAP ordered Patient started on gabapentin by outside PCP; admitting provider increased to 400 mg t.i.d. takes lunesta at home, however willing to take trazodone as lunesta is not on formulary. Says in the past, trazodone 100-200 mg was effective. (not a respiratory depressant; may help with anxiety; locked box at home).? Monitor response to medications. Monitor for safety in the milieu. Discharge on stabilization. Patient seen. Chart reviewed. Discussed with team. Obtain collateral contact info?as needed I spent minutes with the patient and/or on the patient floor today, greater than?50% of which was spent counseling/coordinating care. Patient educated on: diagnosis and medication risk/benefits Informed Consent: understands Reason for contiued inpatient stay Substantial Risk for: rapid decompensation
[2021-09-08] MEDS: Propranolol HCL 20 MG TABLET PO ×3 (11:59→19:58)
[2021-09-08] MEDS: Nicotine Polacrilex 2 MG GUM 4 MG BUCCAL ×2 (15:19→19:01)
[2021-09-08 18:00] VITALS: BP 124/87; PULSE 77; RESP 16; TEMP 36.1
[2021-09-08] MEDS: traZODone HCL 100 MG TABLET 200 MG PO (21:50)
[2021-09-09] MEDS: Acetaminophen 325 MG TABLET 650 MG PO ×2 (06:22→17:10)
[2021-09-09] MEDS: Nicotine 21 MG PATCH.TD24 TRANSDERMA (08:32)
[2021-09-09] MEDS: ARIPiprazole 5 MG TABLET 7.5 MG PO (08:33)
[2021-09-09] MEDS: Venlafaxine HCl ER 75 MG CAP.ER.24H 225 MG PO (08:33)
[2021-09-09] MEDS: Propranolol HCL 20 MG TABLET PO ×3 (08:33→20:44)
[2021-09-09] MEDS: clonazePAM 1 MG TABLET PO ×3 (08:33→20:47)
[2021-09-09] MEDS: busPIRone HCl 10 MG TABLET 30 MG PO ×2 (08:33→20:44)
[2021-09-09] MEDS: Gabapentin 300 MG CAPSULE 600 MG PO ×3 (08:33→20:46)
[2021-09-09] MEDS: hydrOXYzine HCL 25 MG TABLET PO ×4 (08:33→20:46)
[2021-09-09] MEDS: Buprenorphine/Naloxone 12/3 mg FILM 1 FILM SUBLINGUAL ×2 (08:33→17:20)
[2021-09-09] MEDS: Fluticasone Propionate Nasal 16 GM SPRAY 2 SPRAY NOSTRIL-B (08:38)
[2021-09-09 08:50] VITALS: BP 117/72; PULSE 119; RESP 14; TEMP 36.8; O2SAT 94
[2021-09-09] MEDS: Nicotine Polacrilex 2 MG GUM 4 MG BUCCAL (11:29)
--- NOTE | 2021-09-09 16:04 | HO.PSYCHPN ---
Subjective Subjective Date of Service: 09/09/21 Reason For Visit: anxiety Interim History: Patient continues to report that his anxiety is better. He says he is feeling calmer, much less worried about things and reports that his urged paces much better as well. Patient reports that with increased trazodone he slept well last night. Patient laughed saying he hopes this improvement remains. Like to keep medications at their current dose Mental Status Exam Mental Status Exam Narrative: Pt is alert and oriented; behavior is cooperative, friendly and calm; patient is not in distress; better groomed, combed hair, clean cloths; mood is described as a little better ? affect congruent; eye contact appropriate; Speech is normal rate, volume and prosody and not pressured; less psychomotor agitation present; thought process is organized and goal directed; Thought content is on tx and dealing with intrusive worries; otherwise pertinent to relevant topics and without any delusional content, paranoid ideations or grandiosity; denies any SI/HI. There is no evidence of perceptual disturbance. ?Patients insight and judgment are adequate.? Diagnostics Vital Signs (24Hr): Vital Signs - 24 hr 09/08/21 18:00 09/09/21 08:50 Temperature 97 F 98.2 F Pulse Rate 77 119 H Respiratory Rate 16 14 Blood Pressure 124/87 117/72 Pulse Oximetry 94 BMI result Body Mass Index 36.9 Labs Results: 09/02/21 19:52 09/02/21 19:52 Medications Medications Current Medications Acetaminophen (Acetaminophen 325 Mg Tablet) 650 mg PO Q6H PRN PRN Reason: Headache/Pain Mild Scale (1-3) Last Admin: 09/09/21 06:22 Dose: 650 mg Documented by: Al Hydroxide/Mg Hydroxide (Magnesium Hydrox/Alum Hydrox 30 Ml Oral.Susp) 30 ml PO Q6H PRN PRN Reason: Heartburn/Nausea Aripiprazole (Aripiprazole 5 Mg Tablet) 7.5 mg PO DAILY [facility] Last Admin: 09/09/21 08:33 Dose: 7.5 mg Documented by: Buprenorphine/Naloxone (Buprenorphine/Naloxone 12/3 Mg Film) 1 film SUBLINGUAL BID@0800,1700 [facility] Last Admin: 09/09/21 08:33 Dose: 1 film Documented by: Buspirone HCl (Buspirone Hcl 10 Mg Tablet) 30 mg PO BID [facility] Last Admin: 09/09/21 08:33 Dose: 30 mg Documented by: Clonazepam (Clonazepam 1 Mg Tablet) 1 mg PO TID PRN PRN Reason: Anxiety Last Admin: 09/09/21 14:00 Dose: 1 mg Documented by: Fluticasone Propionate (Fluticasone Propionate Nasal 16 Gm [place]) 2 spray NOSTRIL-B DAILY [facility] Last Admin: 09/09/21 08:38 Dose: 2 spray Documented by: Gabapentin (Gabapentin 300 Mg Capsule) 600 mg PO TID [facility] Last Admin: 09/09/21 14:00 Dose: 600 mg Documented by: Hydroxyzine HCl (Hydroxyzine Hcl 25 Mg Tablet) 25 mg PO QID [facility] Last Admin: 09/09/21 14:00 Dose: 25 mg Documented by: Magnesium Hydroxide (Milk Of Magnesia 30 Ml Oral.Susp) 30 ml PO DAILY PRN PRN Reason: Constipation Nicotine (Nicotine 21 Mg Patch.Td24) 21 mg TRANSDERMA DAILY [facility] Last Admin: 09/09/21 08:32 Dose: 21 mg Documented by: Nicotine Polacrilex (Nicotine Polacrilex 2 Mg Gum) 4 mg BUCCAL Q2H PRN PRN Reason: Nicotine Cravings Last Admin: 09/09/21 11:29 Dose: 4 mg Documented by: Propranolol HCl (Propranolol Hcl 20 Mg Tablet) 20 mg PO TID [facility]; Protocol Last Admin: 09/09/21 14:00 Dose: 20 mg Documented by: Trazodone HCl (Trazodone Hcl 100 Mg Tablet) 200 mg PO BEDTIME PRN PRN Reason: Insomnia Last Admin: 09/08/21 21:50 Dose: 200 mg Documented by: Trazodone HCl (Trazodone Hcl 50 Mg Tablet) 50 mg PO BEDTIME PRN PRN Reason: early walking/insomnia Venlafaxine HCl (Venlafaxine Hcl Er 75 Mg Cap.Er.24h) 225 mg PO DAILY [facility] Last Admin: 09/09/21 08:33 Dose: 225 mg Documented by: Allergies Allergies Allergy/AdvReac Type Severity Reaction Status Date / Time No Known Allergies Allergy Verified 09/02/21 20:06 Assessment & Plan Assessment & Plan (1) Obsessive-compulsive disorder with good or fair insight: Status: Acute Code(s): F42.9 - Obsessive-compulsive disorder, unspecified (2) PINA (generalized anxiety disorder): Status: Acute Code(s): F41.1 - Generalized anxiety disorder (3) Panic disorder: Status: Acute Code(s): F41.0 - Panic disorder [episodic paroxysmal anxiety] (4) Opioid use disorder, moderate, in early remission, on maintenance therapy: Status: Acute Code(s): F11.21 - Opioid dependence, in remission (5) OFELIA (obstructive sleep apnea): Status: Acute Code(s): G47.33 - Obstructive sleep apnea (adult) (pediatric) Assessment and Plan: on CPAP Plan Tommy is a 56 y.o. male who carries a dx of MDD, recurrent and PINA. He presented to [facility] on 09/02/21 due to racing thoughts and worsening anxiety since he was discharged 3 days ago from [facility] for benzodiazepine withdrawal. Has been overusing his prescription and running out early. Upon discharge from [facility], pt was set up with VNA and locked box. On MAT, suboxone. Utox positive for fentanyl and cannabis (has medical card, uses dispensary product). Pt reports he struggles with agoraphobia, has been pacing (attributes to anxiety, denies akathesia but may benefit from trial on cogentin to rule it out), and poor sleep. -patient meets criteria for OCD with good insight; it seems that these symptoms were present but at a much lower level and have been significantly exacerbated by worsening anxiety. Patient agrees to medication changes. Patient has history of therapy once a week for 10 years however has never engaged in CBT therapy or specifically for OCD 09/05 -Urge to pace: pt is sitting in chair calmly, no leg, foot or body movement and he does not seem to have akathesia; also pt says it wears off towards the evening and does not seem to be restless leg syndrome. It seems more likely to be due to anxiety, or and OCD-like urge. He was started on Propranol at detox, but does not know what for. Pt is not sure if urge to lessened by propranolol but will try to monitor; agrees to extra dose.? -screened for bipolar; pt does not meet criteria but does have hx of overspending during happy episodes (no other manic symptoms) 09/06: -Will increase gabapentin to 600 mg TID for restlessness, anxiety, agitation. Will continue propranolol due to reported benefit, may consider increasing as tolerated. 09/08 less anxious, less pacing with increased propranol 09/09 Anxiety, worries remain improved; pacing also significantly better. Patient also reports sleeping with increase trazodone dose Plan: Patient on CV Q 15 minute checks Increased trazodone to 200mg for continued insomnia ?Effexor ER to 225 mg to help address OCD symptoms; may need to titrate further as OCD symptoms typically require over typical max doses -Propranolol 20mg TID for Pacing -lowered abilify to 7.5mg in case pt does have akathesia (though seems less likely) will leave on though given outpt providers concern for bipolar; not sure why it was increased ysed2ry to 10mg;? CPAP ordered Patient started on gabapentin by outside PCP; admitting provider increased to 400 mg t.i.d. takes lunesta at home, however willing to take trazodone as lunesta is not on formulary. Says in the past, trazodone 100-200 mg was effective. (not a respiratory depressant; may help with anxiety; locked box at home).? Monitor response to medications. Monitor for safety in the milieu. Discharge on stabilization. Patient seen. Chart reviewed. Discussed with team. Obtain collateral contact info?as needed I spent minutes with the patient and/or on the patient floor today, greater than?50% of which was spent counseling/coordinating care. Patient educated on: diagnosis and therapeutic strategies Informed Consent: understands Reason for contiued inpatient stay Substantial Risk for: med/psych decompensation
[2021-09-09 18:00] VITALS: BP 122/72; PULSE 106; TEMP 36.7; O2SAT 95
[2021-09-09 20:30] VITALS: BP 128/76; PULSE 104
[2021-09-09] MEDS: traZODone HCL 100 MG TABLET 200 MG PO (21:59)
[2021-09-09] MEDS: Milk of Magnesia 30 ML ORAL.SUSP PO (23:42)
[2021-09-10] MEDS: Acetaminophen 325 MG TABLET 650 MG PO ×2 (01:38→10:08)
[2021-09-10] MEDS: traZODone HCL 50 MG TABLET PO ×2 (01:39→23:13)
[2021-09-10 06:00] VITALS: BP 115/67; PULSE 87; RESP 16
[2021-09-10] MEDS: Fluticasone Propionate Nasal 16 GM SPRAY 2 SPRAY NOSTRIL-B (08:37)
[2021-09-10] MEDS: Nicotine 21 MG PATCH.TD24 TRANSDERMA (08:37)
[2021-09-10] MEDS: Venlafaxine HCl ER 75 MG CAP.ER.24H 225 MG PO (08:38)
[2021-09-10] MEDS: ARIPiprazole 5 MG TABLET 7.5 MG PO (08:38)
[2021-09-10] MEDS: clonazePAM 1 MG TABLET PO ×4 (08:38→23:13)
[2021-09-10] MEDS: Buprenorphine/Naloxone 12/3 mg FILM 1 FILM SUBLINGUAL ×2 (08:39→17:05)
[2021-09-10] MEDS: hydrOXYzine HCL 25 MG TABLET PO ×4 (08:39→20:24)
[2021-09-10] MEDS: Propranolol HCL 20 MG TABLET PO ×3 (08:39→20:24)
[2021-09-10] MEDS: busPIRone HCl 10 MG TABLET 30 MG PO ×2 (08:39→20:24)
[2021-09-10] MEDS: Gabapentin 300 MG CAPSULE 600 MG PO ×3 (08:39→20:24)
[2021-09-10 16:05] VITALS: BP 128/67; PULSE 71; TEMP 36.3; O2SAT 100
--- NOTE | 2021-09-10 17:37 | P.PNPSI_ITS ---
Subjective Subjective Date of Service: 09/10/21 Reason For Visit: anxiety Interim History: Patient reports that he remains overall doing better and that anxiety is significantly improved. He is not counting either and feels that pacing though it does remain is significantly better. 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 trazodone. Gambling Supervisor discussed how this may be due to his clonazepam wearing off. Gambling Supervisor and patient discussed the risks/side effects of continued clonazepam use and patient agrees it is best to have a goal of tapering down; chief writer gave patient some ways of doing this to which he was grateful. Patient feels that he is getting close to discharge but would like another day or so to make sure that his anxiety is truly improved. Mental Status Exam Mental Status Exam Narrative: Pt is alert and oriented; behavior is cooperative, friendly and calm; patient is not in distress; better groomed, combed hair, clean cloths; mood is described as better ? affect congruent; eye contact appropriate; Speech is normal rate, volume and prosody and not pressured; no psychomotor agitation; thought process is organized and goal directed; Thought content is on tx and dealing with intrusive worries; otherwise pertinent to relevant topics and without any delusional content, paranoid ideations or grandiosity; denies any SI/HI. There is no evidence of perceptual disturbance. ?Patients insight and judgment are adequate.? Diagnostics Vital Signs (24Hr): Vital Signs - 24 hr 09/09/21 18:00 09/09/21 20:30 09/10/21 06:00 Temperature 98.1 F Pulse Rate 106 H 104 H 87 Respiratory Rate 16 Blood Pressure 122/72 128/76 115/67 Pulse Oximetry 95 09/10/21 16:05 Temperature 97.3 F Pulse Rate 71 Respiratory Rate Blood Pressure 128/67 Pulse Oximetry 100 BMI result Body Mass Index 36.9 Labs Results: 09/02/21 19:52 09/02/21 19:52 Medications Medications Current Medications Acetaminophen (Acetaminophen 325 Mg Tablet) 650 mg PO Q6H PRN PRN Reason: Headache/Pain Mild Scale (1-3) Last Admin: 09/10/21 10:08 Dose: 650 mg Documented by: Al Hydroxide/Mg Hydroxide (Magnesium Hydrox/Alum Hydrox 30 Ml Oral.Susp) 30 ml PO Q6H PRN PRN Reason: Heartburn/Nausea Aripiprazole (Aripiprazole 5 Mg Tablet) 7.5 mg PO DAILY [facility] Last Admin: 09/10/21 08:38 Dose: 7.5 mg Documented by: Buprenorphine/Naloxone (Buprenorphine/Naloxone 12/3 Mg Film) 1 film SUBLINGUAL BID@0800,1700 [facility] Last Admin: 09/10/21 17:05 Dose: 1 film Documented by: Buspirone HCl (Buspirone Hcl 10 Mg Tablet) 30 mg PO BID [facility] Last Admin: 09/10/21 08:39 Dose: 30 mg Documented by: Clonazepam (Clonazepam 1 Mg Tablet) 1 mg PO TID PRN PRN Reason: Anxiety Last Admin: 09/10/21 13:06 Dose: 1 mg Documented by: Fluticasone Propionate (Fluticasone Propionate Nasal 16 Gm [place]) 2 spray NOSTRIL-B DAILY [facility] Last Admin: 09/10/21 08:37 Dose: 2 spray Documented by: Gabapentin (Gabapentin 300 Mg Capsule) 600 mg PO TID [facility] Last Admin: 09/10/21 14:26 Dose: 600 mg Documented by: Hydroxyzine HCl (Hydroxyzine Hcl 25 Mg Tablet) 25 mg PO QID [facility] Last Admin: 09/10/21 16:14 Dose: 25 mg Documented by: Magnesium Hydroxide (Milk Of Magnesia 30 Ml Oral.Susp) 30 ml PO DAILY PRN PRN Reason: Constipation Last Admin: 09/09/21 23:42 Dose: 30 ml Documented by: Nicotine (Nicotine 21 Mg Patch.Td24) 21 mg TRANSDERMA DAILY [facility] Last Admin: 09/10/21 08:37 Dose: 21 mg Documented by: Nicotine Polacrilex (Nicotine Polacrilex 2 Mg Gum) 4 mg BUCCAL Q2H PRN PRN Reason: Nicotine Cravings Last Admin: 09/09/21 11:29 Dose: 4 mg Documented by: Propranolol HCl (Propranolol Hcl 20 Mg Tablet) 20 mg PO TID [facility]; Protocol Last Admin: 09/10/21 14:26 Dose: 20 mg Documented by: Trazodone HCl (Trazodone Hcl 100 Mg Tablet) 200 mg PO BEDTIME PRN PRN Reason: Insomnia Last Admin: 09/09/21 21:59 Dose: 200 mg Documented by: Trazodone HCl (Trazodone Hcl 50 Mg Tablet) 50 mg PO BEDTIME PRN PRN Reason: early walking/insomnia Last Admin: 09/10/21 01:39 Dose: 50 mg Documented by: Venlafaxine HCl (Venlafaxine Hcl Er 75 Mg Cap.Er.24h) 225 mg PO DAILY [facility] Last Admin: 09/10/21 08:38 Dose: 225 mg Documented by: Allergies Allergies Allergy/AdvReac Type Severity Reaction Status Date / Time No Known Allergies Allergy Verified 09/02/21 20:06 Assessment & Plan Assessment & Plan (1) Obsessive-compulsive disorder with good or fair insight: Status: Acute Code(s): F42.9 - Obsessive-compulsive disorder, unspecified (2) PIAN (generalized anxiety disorder): Status: Acute Code(s): F41.1 - Generalized anxiety disorder (3) Panic disorder: Status: Acute Code(s): F41.0 - Panic disorder [episodic paroxysmal anxiety] (4) Opioid use disorder, moderate, in early remission, on maintenance therapy: Status: Acute Code(s): F11.21 - Opioid dependence, in remission (5) OFELIA (obstructive sleep apnea): Status: Acute Code(s): G47.33 - Obstructive sleep apnea (adult) (pediatric) Assessment and Plan: on CPAP Plan Tommy is a 56 y.o. male who carries a dx of MDD, recurrent and PINA. He presented to [facility] on 09/02/21 due to racing thoughts and worsening anxiety since he was discharged 3 days ago from [facility] for benzodiazepine withdrawal. Has been overusing his prescription and running out early. Upon discharge from [facility], pt was set up with VNA and locked box. On MAT, suboxone. Utox positive for fentanyl and cannabis (has medical card, uses dispensary product). Pt reports he struggles with agoraphobia, has been pacing (attributes to anxiety, denies akathesia but may benefit from trial on cogentin to rule it out), and poor sleep. -patient meets criteria for OCD with good insight; it seems that these symptoms were present but at a much lower level and have been significantly exacerbated by worsening anxiety. Patient agrees to medication changes. Patient has history of therapy once a week for 10 years however has never engaged in CBT therapy or specifically for OCD 09/05 -Urge to pace: pt is sitting in chair calmly, no leg, foot or body movement and he does not seem to have akathesia; also pt says it wears off towards the evening and does not seem to be restless leg syndrome. It seems more likely to be due to anxiety, or and OCD-like urge. He was started on Propranol at detox, but does not know what for. Pt is not sure if urge to lessened by propranolol but will try to monitor; agrees to extra dose.? -screened for bipolar; pt does not meet criteria but does have hx of overspending during happy episodes (no other manic symptoms) 09/06: -Will increase gabapentin to 600 mg TID for restlessness, anxiety, agitation. Will continue propranolol due to reported benefit, may consider increasing as tolerated. 09/08 less anxious, less pacing with increased propranol 09/09 Anxiety, worries remain improved; pacing also significantly better. Patient also reports sleeping with increase trazodone dose Plan: Patient on CV Q 15 minute checks Increased trazodone to 200mg for continued insomnia ?Effexor ER to 225 mg to help address OCD symptoms; may need to titrate further as OCD symptoms typically require over typical max doses -Propranolol 20mg TID for Pacing -lowered abilify to 7.5mg in case pt does have akathesia (though seems less likely) will leave on though given outpt providers concern for bipolar; not sure why it was increased etnx1pb to 10mg;? CPAP ordered Patient started on gabapentin by outside PCP; admitting provider increased to 400 mg t.i.d. takes lunesta at home, however willing to take trazodone as lunesta is not on formulary. Says in the past, trazodone 100-200 mg was effective. (not a respiratory depressant; may help with anxiety; locked box at home).? Monitor response to medications. Monitor for safety in the milieu. Discharge on stabilization. Patient seen. Chart reviewed. Discussed with team. Obtain collateral contact info?as needed I spent minutes with the patient and/or on the patient floor today, greater than?50% of which was spent counseling/coordinating care. Patient educated on: diagnosis and medication risk/benefits Informed Consent: understands Reason for contiued inpatient stay Substantial Risk for: med/psych decompensation
[2021-09-10] MEDS: traZODone HCL 100 MG TABLET 200 MG PO (21:10)
[2021-09-11] MEDS: Acetaminophen 325 MG TABLET 650 MG PO (03:49)
[2021-09-11 06:00] VITALS: BP 121/71; PULSE 81; TEMP 36.2; O2SAT 95
[2021-09-11] MEDS: Nicotine 21 MG PATCH.TD24 TRANSDERMA (08:27)
[2021-09-11] MEDS: hydrOXYzine HCL 25 MG TABLET PO ×4 (08:28→20:47)
[2021-09-11] MEDS: Venlafaxine HCl ER 75 MG CAP.ER.24H 225 MG PO (08:28)
[2021-09-11] MEDS: busPIRone HCl 10 MG TABLET 30 MG PO ×2 (08:28→20:00)
[2021-09-11] MEDS: Propranolol HCL 20 MG TABLET PO ×3 (08:28→20:00)
[2021-09-11] MEDS: Gabapentin 300 MG CAPSULE 600 MG PO ×3 (08:28→20:00)
[2021-09-11] MEDS: Buprenorphine/Naloxone 12/3 mg FILM 1 FILM SUBLINGUAL ×2 (08:29→17:07)
[2021-09-11] MEDS: ARIPiprazole 5 MG TABLET 7.5 MG PO (08:29)
[2021-09-11] MEDS: Fluticasone Propionate Nasal 16 GM SPRAY 2 SPRAY NOSTRIL-B (08:49)
[2021-09-11] MEDS: clonazePAM 1 MG TABLET PO ×3 (08:51→20:00)
[2021-09-11 14:44] VITALS: BP 124/76; PULSE 85
--- NOTE | 2021-09-11 15:49 | HO.PSYCHPN ---
Subjective Subjective Date of Service: 09/11/21 Reason For Visit: anxiety Interim History: Patient says he remains overall much improved, good mood, anxiety down, pacing down and he feels ready to discharge home tomorrow. He still says he has trouble with insomnia, and woke up at 03:00 this morning however it something a continue to work on and agrees it is likely clonazepam wearing off. Patient did share he is triggered with anxiety due to his roommate being provocative however patient feels he can handle it since he is leaving tomorrow. Mental Status Exam Mental Status Exam Narrative: Pt is alert and oriented; behavior is cooperative, friendly and calm; patient is not in distress; better groomed, combed hair, clean cloths; mood is described as good ? affect congruent; eye contact appropriate; Speech is normal rate, volume and prosody and not pressured; no psychomotor agitation; thought process is organized and goal directed; Thought content is on tx, discharge and WNL; otherwise pertinent to relevant topics and without any delusional content, paranoid ideations or grandiosity; denies any SI/HI. There is no evidence of perceptual disturbance. ?Patients insight and judgment are fair and adequate.? Diagnostics Vital Signs (24Hr): Vital Signs - 24 hr 09/10/21 16:05 09/11/21 06:00 09/11/21 14:44 Temperature 97.3 F 97.1 F Pulse Rate 71 81 85 Blood Pressure 128/67 121/71 124/76 Pulse Oximetry 100 95 BMI result Body Mass Index 36.9 Labs Results: 09/02/21 19:52 09/02/21 19:52 Medications Medications Current Medications Acetaminophen (Acetaminophen 325 Mg Tablet) 650 mg PO Q6H PRN PRN Reason: Headache/Pain Mild Scale (1-3) Last Admin: 09/11/21 03:49 Dose: 650 mg Documented by: Al Hydroxide/Mg Hydroxide (Magnesium Hydrox/Alum Hydrox 30 Ml Oral.Susp) 30 ml PO Q6H PRN PRN Reason: Heartburn/Nausea Aripiprazole (Aripiprazole 5 Mg Tablet) 7.5 mg PO DAILY [facility] Last Admin: 09/11/21 08:29 Dose: 7.5 mg Documented by: Buprenorphine/Naloxone (Buprenorphine/Naloxone 12/3 Mg Film) 1 film SUBLINGUAL BID@0800,1700 [facility] Last Admin: 09/11/21 08:29 Dose: 1 film Documented by: Buspirone HCl (Buspirone Hcl 10 Mg Tablet) 30 mg PO BID [facility] Last Admin: 09/11/21 08:28 Dose: 30 mg Documented by: Clonazepam (Clonazepam 1 Mg Tablet) 1 mg PO TID PRN PRN Reason: Anxiety Last Admin: 09/11/21 13:20 Dose: 1 mg Documented by: Fluticasone Propionate (Fluticasone Propionate Nasal 16 [employer]m [employer]) 2 spray NOSTRIL-B DAILY [facility] Last Admin: 09/11/21 08:49 Dose: 2 spray Documented by: Gabapentin (Gabapentin 300 Mg Capsule) 600 mg PO TID [facility] Last Admin: 09/11/21 14:43 Dose: 600 mg Documented by: Hydroxyzine HCl (Hydroxyzine Hcl 25 Mg Tablet) 25 mg PO QID [facility] Last Admin: 09/11/21 13:10 Dose: 25 mg Documented by: Magnesium Hydroxide (Milk Of Magnesia 30 Ml Oral.Susp) 30 ml PO DAILY PRN PRN Reason: Constipation Last Admin: 09/09/21 23:42 Dose: 30 ml Documented by: Nicotine (Nicotine 21 Mg Patch.Td24) 21 mg TRANSDERMA DAILY [facility] Last Admin: 09/11/21 08:27 Dose: 21 mg Documented by: Nicotine Polacrilex (Nicotine Polacrilex 2 Mg Gum) 4 mg BUCCAL Q2H PRN PRN Reason: Nicotine Cravings Last Admin: 09/09/21 11:29 Dose: 4 mg Documented by: Propranolol HCl (Propranolol Hcl 20 Mg Tablet) 20 mg PO TID [facility]; Protocol Last Admin: 09/11/21 14:42 Dose: 20 mg Documented by: Trazodone HCl (Trazodone Hcl 100 Mg Tablet) 200 mg PO BEDTIME PRN PRN Reason: Insomnia Last Admin: 09/10/21 21:10 Dose: 200 mg Documented by: Trazodone HCl (Trazodone Hcl 50 Mg Tablet) 50 mg PO BEDTIME PRN PRN Reason: early walking/insomnia Last Admin: 09/10/21 23:13 Dose: 50 mg Documented by: Venlafaxine HCl (Venlafaxine Hcl Er 75 Mg Cap.Er.24h) 225 mg PO DAILY [facility] Last Admin: 09/11/21 08:28 Dose: 225 mg Documented by: Allergies Allergies Allergy/AdvReac Type Severity Reaction Status Date / Time No Known Allergies Allergy Verified 09/02/21 20:06 Assessment & Plan Assessment & Plan (1) Obsessive-compulsive disorder with good or fair insight: Status: Acute Code(s): F42.9 - Obsessive-compulsive disorder, unspecified (2) PINA (generalized anxiety disorder): Status: Acute Code(s): F41.1 - Generalized anxiety disorder (3) Panic disorder: Status: Acute Code(s): F41.0 - Panic disorder [episodic paroxysmal anxiety] (4) Opioid use disorder, moderate, in early remission, on maintenance therapy: Status: Acute Code(s): F11.21 - Opioid dependence, in remission (5) OFELIA (obstructive sleep apnea): Status: Acute Code(s): G47.33 - Obstructive sleep apnea (adult) (pediatric) Assessment and Plan: on CPAP Plan Tommy is a 56 y.o. male who carries a dx of MDD, recurrent and PINA. He presented to [facility] on 09/02/21 due to racing thoughts and worsening anxiety since he was discharged 3 days ago from [facility] for benzodiazepine withdrawal. Has been overusing his prescription and running out early. Upon discharge from [facility], pt was set up with VNA and locked box. On MAT, suboxone. Utox positive for fentanyl and cannabis (has medical card, uses dispensary product). Pt reports he struggles with agoraphobia, has been pacing (attributes to anxiety, denies akathesia but may benefit from trial on cogentin to rule it out), and poor sleep. -patient meets criteria for OCD with good insight; it seems that these symptoms were present but at a much lower level and have been significantly exacerbated by worsening anxiety. Patient agrees to medication changes. Patient has history of therapy once a week for 10 years however has never engaged in CBT therapy or specifically for OCD 09/05 -Urge to pace: pt is sitting in chair calmly, no leg, foot or body movement and he does not seem to have akathesia; also pt says it wears off towards the evening and does not seem to be restless leg syndrome. It seems more likely to be due to anxiety, or and OCD-like urge. He was started on Propranol at detox, but does not know what for. Pt is not sure if urge to lessened by propranolol but will try to monitor; agrees to extra dose.? -screened for bipolar; pt does not meet criteria but does have hx of overspending during happy episodes (no other manic symptoms) 09/06: -Will increase gabapentin to 600 mg TID for restlessness, anxiety, agitation. Will continue propranolol due to reported benefit, may consider increasing as tolerated. 09/08 less anxious, less pacing with increased propranol 09/09 Anxiety, worries remain improved; pacing also significantly better. Patient also reports sleeping with increase trazodone dose 09/11 patient remains in good mood, with anxiety and pacing significantly better. Patient feels ready to discharge home tomorrow. Denies any SI or HI or AVH. Patient reports he is tolerating his medications well and denies side effects. Still has some insomnia. Patient is not in imminent risk of harm to self or others and to request for discharge honored. Plan: Patient on CV Q 15 minute checks Increased trazodone to 200mg for continued insomnia ?Effexor ER to 225 mg to help address OCD symptoms; may need to titrate further as OCD symptoms typically require over typical max doses -Propranolol 20mg TID for Pacing -lowered abilify to 7.5mg in case pt does have akathesia (though seems less likely) will leave on though given outpt providers concern for bipolar; not sure why it was increased [id number] to 10mg;? CPAP ordered Patient started on gabapentin by outside PCP; admitting provider increased to 400 mg t.i.d. takes lunesta at home, however willing to take trazodone as lunesta is not on formulary. Says in the past, trazodone 100-200 mg was effective. (not a respiratory depressant; may help with anxiety; locked box at home).? Monitor response to medications. Monitor for safety in the milieu. Discharge on stabilization. Patient seen. Chart reviewed. Discussed with team. Obtain collateral contact info?as needed I spent minutes with the patient and/or on the patient floor today, greater than?50% of which was spent counseling/coordinating care. Patient educated on: diagnosis and medication risk/benefits Informed Consent: understands Reason for contiued inpatient stay Substantial Risk for: stable for discharge
--- NOTE | 2021-09-11 16:29 | PM.PSYDC ---
DS: Providers Provider Date of Service: 09/12/21 Date of admission: 09/03/21 14:40 Date of discharge: 09/12/21 Primary care physician: Unknown Physician Admitting clinician: Leatha Garrett Attending physician on discharge: Lamin Gonzalez DS: Diagnosis Discharge Diagnosis (1) Obsessive-compulsive disorder with good or fair insight: Status: Acute (2) PINA (generalized anxiety disorder): Status: Acute (3) Panic disorder: Status: Acute (4) Opioid use disorder, moderate, in early remission, on maintenance therapy: Status: Acute (5) OFELIA (obstructive sleep apnea): Status: Acute DS: Medications Discharge Medications Home Medications: Home Medications Medication Instructions Recorded Confirmed aripiprazole 10 mg tablet 1 tab PO QAM 09/02/21 09/02/21 buprenorphine 12 mg-naloxone 3 mg 1 film SUBLINGUAL BID 09/02/21 09/02/21 sublingual film clonazepam 1 mg tablet 1 tab PO TID PRN 09/02/21 09/02/21 eszopiclone 3 mg tablet 1 tab PO BEDTIME PRN 09/02/21 09/02/21 gabapentin 300 mg capsule 1 cap PO BID 09/02/21 09/02/21 naloxone 4 mg/actuation nasal spray 1 spray INTRANASAL PER PKG DIR PRN 09/02/21 09/02/21 propranolol 10 mg tablet 1 tab PO BID 09/02/21 09/02/21 venlafaxine 150 mg 1 cap PO QAM 09/02/21 09/02/21 capsule,extended release 24 hr Previous Rx's Medication Instructions Recorded aripiprazole 5 mg tablet (Abilify) 7.5 mg PO DAILY 30 Days #45 tab 09/11/21 buspirone 30 mg tablet 30 mg PO BID 30 Days #60 tab 09/11/21 fluticasone propionate 50 2 spray INTRANASAL DAILY 30 Days 09/11/21 mcg/actuation nasal #16 g spray,suspension gabapentin 600 mg tablet 600 mg PO TID 30 Days #90 tab 09/11/21 hydroxyzine HCl 25 mg tablet 25 mg PO QID 30 Days #120 tab 09/11/21 nicotine (polacrilex) 4 mg gum 4 mg PO Q2H PRN 30 Days #100 ea 09/11/21 nicotine 21 mg/24 hr daily 1 patch TOPICAL DAILY PRN 28 Days 09/11/21 transdermal patch #28 ea propranolol 20 mg tablet 20 mg PO TID 30 Days #90 tab 09/11/21 trazodone 100 mg tablet See Rx Instructions .ROUTE 09/11/21 .COMPLEX PRN 30 Days #75 tab venlafaxine 225 mg tablet,extended 225 mg PO DAILY 30 Days #30 tab 09/11/21 release 24 hr Mental Status Exam Mental Status Exam Narrative: Pt is alert and oriented; behavior is cooperative, friendly and calm; patient is not in distress; better groomed, combed hair, clean cloths; mood is described as good ? affect congruent; eye contact appropriate; Speech is normal rate, volume and prosody and not pressured; no psychomotor agitation; thought process is organized and goal directed; Thought content is on tx, discharge and WNL; otherwise pertinent to relevant topics and without any delusional content, paranoid ideations or grandiosity; denies any SI/HI. There is no evidence of perceptual disturbance. ?Patients insight and judgment are fair and adequate.? DS: Summary Hospital Course Hospital Course: Tommy is a 56 y.o. male who carries a dx of MDD, recurrent and PINA. He presented to [facility] ED on 09/02/21 due to racing thoughts and worsening anxiety since he was discharged 3 days ago from [facility] for benzodiazepine withdrawal. Has been overusing his prescription and running out early. Upon discharge from [facility], pt was set up with VNA and locked box. On MAT, suboxone. Utox positive for fentanyl and cannabis (has medical card, uses dispensary product). Pt reports he struggles with agoraphobia, has been pacing (attributes to anxiety, denies akathesia but may benefit from trial on cogentin to rule it out), and poor sleep. On admission, patient was then in improved mood with no SI. He was however Quite anxious. -patient meets criteria for OCD with good insight; it seems that these symptoms were present but at a much lower level and have been significantly exacerbated by worsening anxiety.? Patient agrees to medication changes and his Patient's Effexor was increased to 225 mg for OCD symptoms; Also he does not know why He was started on Abilify Or why it was increased so it was lowered To mitigate risk of side effects; Dog Or Animal Sitter left and on since outpatient provider seem to be concerned about possible bipolar diagnosis however patient was screened by bond underwriter and does not meet criteria. Patient has history of therapy once a week for 10 years however has never engaged in CBT therapy or specifically for OCD; this was discussed and patient said he is now open to it. -During admission (and just prior to) patient had a strong Urge to pace; Akathisia ruled out as he was able to sit in chair calmly, no leg, foot or body movement; also pt says it wears off towards the evening and does not seem to be restless leg syndrome. It seems more likely to be due to anxiety, or and OCD-like urge. He was started on Propranol at detox which was Increased and Resulted in a decrease of anxiety and pacing. Gabapentin was also increased which also helped lower anxiety. Throughout the rest of patient's admission his anxiety remains significantly improved and pacing had Nearly resolved. He also is sleeping better with increase trazodone. Patient continued to deny any SI, HI or AVH. He reported being in a good mood and optimistic about continued recovery on discharge. Pt expressed he was ready to return home. Patient? is not in imminent risk of harm to self or others and to request for discharge honored. Time spent discussing smoking cessation with patient: 3 to 10 minutes Status at Discharge Functional status at discharge: independent ambulation Overall status at discharge: patient is back to baseline Time Spent with Patient Time attestation: Total time spent providing and/or coordinating discharge services: Time spent: Less than 30 minutes Discharge Plan Discharge Patient Disposition: Home, Self-Care Discharge Diagnosis: OCD with good insight Referrals: Sid FISHMAN [Other] - 1 Week (fax [phone]) Psychiatric Med Management: Matheus Hughes NP [Other] - 09/28/21 2:20 pm (This is a Telehealth appointment ) Suboxone: Dr. Barnard [Other] - 1 Week (Dr. Barnard has been informed of your inpatient psychiatric admission and requested you contact his office to schedule a follow-up appointment when needed to obtain your suboxone) Raquel Guillaume CNM [Certified Nurse Hydrotechnical Specialist] - 1 Week Raquel Smalls MD [Physician] - 09/19/21 1:45 pm (in office) Discharge Medications: New propranolol 20 mg Tablet 20 mg PO TID 30 Days Qty: 90 0RF Protocol: Hold for SBP/HR < HOLD for SBP < : 100 HOLD for HR < : 60 aripiprazole [Abilify] 5 mg Tablet 7.5 mg PO DAILY 30 Days Qty: 45 0RF gabapentin 600 mg tablet 600 mg PO TID 30 Days Qty: 90 0RF trazodone 100 mg Tablet See Rx Instructions .ROUTE .COMPLEX PRN (Reason: Insomnia) 30 Days Qty: 75 0RF Rx Instructions: take 2 or 2.5 tabs as needed for insomnia venlafaxine 75 mg capsule,extended release 24hr 75 mg PO DAILY 30 Days Qty: 30 0RF Rx Instructions: take with 150mg capsule for total of 225mg daily Continued clonazepam 1 mg tablet 1 tab PO TID PRN (Reason: Anxiety) 0RF eszopiclone 3 mg tablet 1 tab PO BEDTIME PRN (Reason: Sleep) 0RF naloxone 4 mg/actuation spray,non-aerosol 1 spray intranasal PER PKG DIR PRN (Reason: Opioid Overdose) 0RF nicotine (polacrilex) 4 mg gum 4 mg PO Q2H PRN (Reason: Nicotine Cravings) 30 Days Qty: 100 0RF fluticasone propionate 50 mcg/actuation [employer],Suspension 2 spray INTRANASAL DAILY 30 Days Qty: 16 0RF Rx Instructions: administer into each nostril buprenorphine-naloxone 12-3 mg film 1 film sublingual BID 7 Days Qty: 14 0RF Changed buspirone 30 mg tablet 30 mg PO BID 30 Days Qty: 60 0RF nicotine 21 mg/24 hr patch 24 hour 1 patch topical DAILY PRN (Reason: nicotine cravings) 28 Days Qty: 28 0RF hydroxyzine HCl 25 mg tablet 25 mg PO QID 30 Days Qty: 120 0RF venlafaxine 150 mg capsule,extended release 24hr 150 mg PO QAM 30 Days Qty: 30 0RF Rx Instructions: take with 75mg capsule for total of 225mg daily Discontinued propranolol 10 mg tablet 1 tab PO BID 0RF gabapentin 300 mg capsule 1 cap PO BID 0RF aripiprazole 10 mg tablet 1 tab PO QAM 0RF Discharge Orders: Discharge Order (Routine); Ordered 09/12/21 Ordered By: Lamin Gonzalez Diet: regular diet Activity on Discharge: As tolerated Stand Alone Forms: Patient Portal Discharge page Care Plan Goals: Maintain mood and safe behaviors Take medications as prescribed Continue to pursue sobriety Practice coping skills Continue with outpatient providers and reach out to them as needed Health Concerns: Mood stability and behaviors Sobriety OFELIA Plan of Treatment: Follow up with your PCP, psychiatric provider and other outpatient providers regarding above concerns Take medications as prescribed Assessment: Risk assessment at time of discharge:? Patient was interviewed prior to discharge and found to be fully oriented and without any SI or HI. Patient has insight and demonstrates good judgment in terms of wanting to pursue treatment. Patient is not in imminent risk of harm to self or others and has a safety plan that includes presenting to the closest ER or calling 911 if feeling unsafe.? Patient has been observed closely by nursing and unit staff throughout admission; patient has not engaged in any behaviors that suggest dangerousness to self or others and has demonstrated appropriate behaviors and impulse control Discharge Date/Time: 09/12/21 16:16
[2021-09-11 19:45] VITALS: BP 124/74; PULSE 89
[2021-09-11] MEDS: traZODone HCL 100 MG TABLET 200 MG PO (22:25)
[2021-09-12 06:00] VITALS: BP 128/72; PULSE 101; RESP 16; TEMP 36.9; O2SAT 97
[2021-09-12] MEDS: Propranolol HCL 20 MG TABLET PO ×2 (08:53→13:59)
[2021-09-12] MEDS: Venlafaxine HCl ER 75 MG CAP.ER.24H 225 MG PO (08:53)
[2021-09-12] MEDS: Nicotine 21 MG PATCH.TD24 TRANSDERMA (08:53)
[2021-09-12] MEDS: ARIPiprazole 5 MG TABLET 7.5 MG PO (08:53)
[2021-09-12] MEDS: Buprenorphine/Naloxone 12/3 mg FILM 1 FILM SUBLINGUAL ×2 (08:53→13:59)
[2021-09-12] MEDS: Fluticasone Propionate Nasal 16 GM SPRAY 2 SPRAY NOSTRIL-B (08:53)
[2021-09-12] MEDS: busPIRone HCl 10 MG TABLET 30 MG PO (08:54)
[2021-09-12] MEDS: Gabapentin 300 MG CAPSULE 600 MG PO ×2 (08:54→13:58)
[2021-09-12] MEDS: clonazePAM 1 MG TABLET PO ×2 (08:54→12:38)
[2021-09-12] MEDS: hydrOXYzine HCL 25 MG TABLET PO ×2 (08:54→12:38)
[2021-09-12] MEDS: Naloxone HCl Nasal TAKE HOME 4 MG SPRAY NOSTRILALT (12:39)
== END 2021-09-12 16:16 | disposition home or self-care (01) | DRG 880 ==
LOC: HO.ED 09-03 15:31 → HO.PM5 09-03 16:12
PROVIDERS: Physician Assistant; Admitting Provider Psychiatry & Neurology Psychiatry; Emergency Provider Internal Medicine; Visit Provider Psychiatry & Neurology Psychiatry
DX: F41.1 Generalized anxiety disorder (principal); F11.20 Opioid dependence, uncomplicated; F41.0 Panic disorder [episodic paroxysmal anxiety]; Z20.822 Contact with and (suspected) exposure to COVID-19; F17.210 Nicotine dependence, cigarettes, uncomplicated; F42.9 Obsessive-compulsive disorder, unspecified; G47.33 Obstructive sleep apnea (adult) (pediatric); Z71.6 Tobacco abuse counseling; Z79.51 Long term (current) use of inhaled steroids; Z79.899 Other long term (current) drug therapy
CPT/HCPCS: 36415; 80053; 80061; 80076; 80307; 81003; 82077; 83036; 84439; 85007; 85025; 85027; 87635; 93005; 94660; 99284; 99285

== ENCOUNTER 2023-02-23 12:56 | Emergency (ER) | payer MEDICARE, MEDICAID, SELFPAY ==
--- NOTE | ~2023-02-23 | XR_ITS ---
EXAMINATION: XR RIBS, BILATERAL CLINICAL INFORMATION: Chest pain, fall COMPARISON: None available. TECHNIQUE: 3 views of the bilateral ribs were obtained. FINDINGS: There is asymmetric elevation of the right hemidiaphragm with right lung base atelectasis. No consolidation, pneumothorax, or pleural effusion. The cardiomediastinal silhouette and pulmonary vasculature are normal. Surgical clips are seen in the right upper quadrant of the abdomen. Osseous structures are unremarkable. Ribs are intact. Metallic BB is placed over the site of focal pain in the anterior aspect of the left ribs. No fractures are identified. XR/XR ribs BI min 4V w CXR1V IMPRESSION: No acute fractures. Elevation of the right hemidiaphragm with right lung base atelectasis
--- NOTE | ~2023-02-23 | CT_ITS ---
CLINICAL HISTORY:Neck pain, fall COMPARISON: None TECHNIQUE: Axial CT imaging of the cervical spine was acquired without intravenous contrast. Coronal and sagittal reformats were also reviewed. All CT exams at this location are performed using dose optimization techniques as appropriate to a performed exam including at least one of the following: * Automated exposure control * Adjustment of the mA and/or kV according to patient size (this includes techniques or standardized protocols for targeted exams where dose is matched to indication / reason for exam; i/e/ extremities or head) * Use of iterative reconstructive technique * Total DLP is 691 mGy*cm. * RESULTS: There is no evidence of acute cervical spine fracture. Vertebral body height and alignment is well maintained. No pre- or paravertebral soft tissue abnormality is identified. Mild degenerative disc disease with disc space narrowing, osteophyte formation and uncovertebral joint hypertrophy is seen at C5/C6. Posterior facet joints are well-maintained Limited assessment of the lung apices is unremarkable. CT/CT cervical spine wo IV con IMPRESSION: No acute processes. Mild degenerative disc disease at C5/C6
--- NOTE | ~2023-02-23 | CT_ITS ---
CT head/brain wo IV con CLINICAL INFORMATION: Reason for Exam headstrike COMPARISON: No prior CT scan available for comparison. TECHNIQUE: Department standard protocol. This CT examination was performed using dose optimization techniques as appropriate, variously including the following: *Automated exposure control *Adjustment of mA and/or kV according to patient size (this includes techniques or standardized protocols for targeted exams where dose is matched to indication/reason for exam; i.e. extremities or head) *Use of iterative reconstruction technique DLP: 701 mGy-cm FINDINGS: CEREBRAL HEMISPHERES: There is no evidence of intra-axial or extra-axial mass, hemorrhage or acute infarct. BRAIN PARENCHYMA: Normal benjamin-white matter differentiation. SUBDURAL SPACE: No bleed. BASAL GANGLIA AND PINEAL GLAND: Unremarkable VENTRICLES: Symmetric and normal in size. CEREBELLUM AND BRAINSTEM: No space-occupying mass, hemorrhage or acute infarct. CEREBELLOPONTINE ANGLES: No lesion found. ORBITS: No intraorbital mass. VESSELS: Unremarkable SKULL BASE: Unremarkable INCLUDED SINUSES AT SKULL BASE: Clear SKULL AND SKIN: No fracture or bone lesion found. CT/CT head/brain wo IV con IMPRESSION: No CT evidence of intracranial space-occupying mass, bleed or infarct.
[2023-02-23 13:03] VITALS: BP 110/77; BP 112/77; PULSE 89; PULSE 90; RESP 16; TEMP 37.2; O2SAT 93; O2SAT 98; BMI 34.9
--- NOTE | 2023-02-23 13:09 | ECG_ITS ---
Test Reason : CHESTPAIN Blood Pressure : / mmHG Vent. Rate : 087 BPM Atrial Rate : 087 BPM P-R Int : 178 ms QRS Dur : 080 ms QT Int : 372 ms P-R-T Axes : 045 057 043 degrees QTc Int : 447 ms Normal sinus rhythm Low voltage QRS Nonspecific T wave abnormality Abnormal ECG When compared with ECG of 03-SEP-2021 14:32, Nonspecific T wave abnormality is now Present Referred By: Tony Amin Electronically Signed By:ROOSEVELT MELARA
--- NOTE | 2023-02-23 13:15 | PC.NURSE ---
pt axox3, vss, respirations even and unlabored, sats 95% RA, skin wpd. pt reports he had a fall yesterday going outside his house 1800; fell on L. side; denies LOC/+headstrike. - thinners. pt also c/o L. sided cp/L. arm pain/GOODMAN since fall. PERRLA. neuros intact. no bruising/abrasions noted to affected side. pt given 324 aspirin & 1 tab Nitro by ems. pt continues to report 8/10 cp. lung sounds clear. pt denies n/v/d/sob. pt afebrile. nsr on monitor 89 bpm. ekg obtained. awaiting lab work and primary eval by ed provider. call joyner within reach.
--- NOTE | 2023-02-23 13:39 | ED.CHESTPAIN ---
HPI - Chest Pain General Chief Complaint: Chest Pain Stated Complaint: cp/l arm pain s/p fall t-1,asa/nitro given Time Seen by Provider: 02/23/23 13:09 Source: patient and EMS Mode of arrival: ambulatory Limitations: no limitations History of Present Illness HPI narrative: This is a 57-year-old male history of obstructive sleep apnea OCD, opiate use disorder, panic disorder, generalized anxiety presenting to the emergency department for complaints of headache, intermittent blurred vision, chest discomfort with radiation to left arm, precipitated by deep breathing since yesterday. Patient reports that yesterday he had a fall, he fell when trying to get out of his door, hitting his head, no loss of consciousness, patient not on blood thinners was able to get up from the ground on his own. He reports that today symptoms have been worse and this is what prompted him to come in for evaluation. Patient denies shortness of breath nausea, vomiting, abdominal pain, visual disturbances, abdominal pain. Patient denies preceding symptoms of fall GCS 15. NIH stroke scale 0 on arrival Related Data Home Medications Medication Instructions Recorded Confirmed clonazepam 1 mg tablet 1 tab PO TID PRN Anxiety 09/02/21 09/02/21 eszopiclone 3 mg tablet 1 tab PO BEDTIME PRN Sleep 09/02/21 09/02/21 naloxone 4 mg/actuation nasal spray 1 spray intranasal PER PKG DIR PRN 09/02/21 09/02/21 Opioid Overdose Previous Rx's Medication Instructions Recorded aripiprazole 5 mg tablet (Abilify) 7.5 mg PO DAILY 30 days #45 tabs 09/11/21 buspirone 30 mg tablet 30 mg PO BID 30 days #60 tabs 09/11/21 fluticasone propionate 50 2 spray intranasal DAILY 30 days 09/11/21 mcg/actuation nasal #16 grams spray,suspension gabapentin 600 mg tablet 600 mg PO TID 30 days #90 tabs 09/11/21 hydroxyzine HCl 25 mg tablet 25 mg PO QID 30 days #120 tabs 09/11/21 nicotine (polacrilex) 4 mg gum 4 mg PO Q2H PRN Nicotine Cravings 09/11/21 30 days #100 ea nicotine 21 mg/24 hr daily 1 patch topical DAILY PRN nicotine 09/11/21 transdermal patch cravings 28 days #28 ea propranolol 20 mg tablet 20 mg PO TID 30 days #90 tabs 09/11/21 trazodone 100 mg tablet See Rx Instructions .Route 09/11/21 .COMPLEX PRN Insomnia 30 days #75 tabs buprenorphine 12 mg-naloxone 3 mg 1 film sublingual BID 7 days #14 ea 09/12/21 sublingual film venlafaxine 150 mg 150 mg PO QAM 30 days #30 caps 09/12/21 capsule,extended release 24 hr venlafaxine 75 mg capsule,extended 75 mg PO DAILY 30 days #30 caps 09/12/21 release 24 hr ketorolac 10 mg tablet 10 mg PO TID PRN pain 5 days #15 02/23/23 tabs lidocaine 5 % topical patch 1 patch topical DAILY PRN pain #15 02/23/23 ea Allergies Allergy/AdvReac Type Severity Reaction Status Date / Time No Known Allergies Allergy Verified 09/02/21 20:06 Review of Systems Review of Systems: Constitutional : No Weight loss, No Fever, No Chills, No Fatigue, No Malaise ENT/Mouth : No sore throat, No Rhinorrhea Eyes: No Eye Pain, No Swelling, No Redness Cardiovascular : + Chest Pain, No SOB, No Dyspnea on Exertion, No Orthopnea, No Edema, No Palpitations Respiratory : No Cough, No Sputum, No Wheezing Gastrointestinal : No Nausea, No Vomiting, No Diarrhea, No Constipation, No abdominal Pain, No Hematochezia, No Melena Genitourinary : No Dysuria, No Urinary Frequency, No Hematuria, Musculoskeletal : No joint pain, No Myalgias, No Joint Swelling, + rib pain Skin : No Skin Lesions, No rash Neuro : No Weakness, No Numbness, No Dizziness, No Headache Psych : No Anxiety/Panic, No Depression All other systems reviewed and are negative Yes all other systems are reviewed and are negative [facility] Past Medical History Attestation statement: The following information was validated with the patient. Source: old records reviewed and nursing notes reviewed Medical History (Updated 02/23/23 @ 14:41 by NANCY Birch) Obsessive-compulsive disorder with good or fair insight OFELIA (obstructive sleep apnea) Social History Social History Household Members: Friend(s) Housing: Condominium Do you presently have visiting nurse or other home services: Yes Patient Tobacco Use Status: Current everyday Tobacco user Tobacco use type: Cigarette Cigarettes Per Day: 20 Years Smoked: 20 Smoked in Last 30 Days: Yes e-Cigarette/Vaping Use: Never Used Second Hand Smoke Exposure: Yes Use of substances other than those prescribed or required for medical reasons: No Substance Use Type: Marijuana and Sedatives Advance Directives: No Advance Directives Information Provided: Yes service: No Sexual orientation: Did not discuss Physical Exam Vital Signs: Vital Signs: Last Vital Signs Temp 98.9 F 02/23/23 13:03 Pulse 85 02/23/23 14:31 Resp 12 02/23/23 14:31 BP 118/80 02/23/23 14:31 Pulse Ox 95 02/23/23 14:31 O2 Del Method Room Air 02/23/23 14:31 BMI result Body Mass Index 34.9 vss Appearance: Alert.? Oriented X3.? No acute distress.? Head: Normocephalic, atraumatic, no step-offs or deformities Eyes: Pupils equal, round and reactive to light.? Neck: Normal inspection.? Neck supple.? CVS: Normal heart rate and rhythm.? Pulses normal.? + anterior chest wall pain to palpation Respiratory: No respiratory distress.? Breath sounds normal.? Abdomen: Soft and nontender.? Skin: Skin warm and dry.? Normal skin color.? Normal skin turgor.? Extremities: No lower extremity edema.? No calf ttp. 5/5 strength to bilateral upper and lower extremities Neuro: Oriented X 3.? No motor deficit.? No sensory deficit. CN 2-12 intact Course Reevaluation(s) Reevaluation #1: CBC appears to be around patient's baseline slightly lower than usual platelets however head scan obtained to rule out bleed. Although I do not suspect this based off of his neurological assessment. Patient's CBC with no acute findings requiring intervention. Troponin negative (EKG also nonischemic, heart score of 1, no need for repeat troponin, unlikely ACS), BNP within normal limits. UA without infection. Head CT with no evidence of intracranial space-occupying mass, bleed or infarct. X-ray of ribs in cervical spine pending. Time: 15:24 Reevaluation #2: No acute fractures. Elevation of right hemidiaphragm with right lung base atelectasis, breath sounds clear, unlikely pneumonia, no signs of pneumothorax, patient not complaining of shortness of breath. No acute findings in the cervical spine there are is degenerative disc disease noted. At this time patient to be discharged home will have him follow-up with PCP and return with any new or worsening symptoms likely concussion, will educate and post concussive syndrome and advised return with any new or worsening symptoms peer Educated patient on diagnosis and treatment plan, answered all question, patient verbalizes understanding. At this time patient will be discharged home, advised to return with new or worsening symptoms. Educated on worrisome signs and symptoms and when to return. At this time I feel comfortable discharge home. Time: 15:56 Medications Administered Discontinued Medications Generic Name Dose Route Start Last Admin Trade Name Andrey PRN Reason Stop Dose Admin Acetaminophen 650 mg 02/23/23 14:58 02/23/23 15:02 Acetaminophen 325 Mg Tablet PO 02/23/23 14:59 650 mg ONCE ONE Administration Morphine Sulfate 4 mg 02/23/23 14:36 02/23/23 14:56 Morphine Sulfate 4 Mg/Ml Cartridge IVPUSH 02/23/23 14:37 Not Given ONCE ONE Protocol Ondansetron HCl 4 mg 02/23/23 14:36 02/23/23 14:51 Ondansetron Hcl 4 Mg/2 Ml Vial IVPUSH 02/23/23 14:37 4 mg ONCE ONE Administration Medical Decision Making Medical Decision Making [facility] Narrative: 1342 57-year-old male presenting with chest discomfort with radiation to left arm as well as headache status post fall yesterday. Not on blood thinners. No loss of consciousness. Physical exam w/ anterior chest wall pain to palpation. Neuro nonfocal. Cerebellar intact. NIH stroke scale 0. GCS 15. This is likely concussion without loss of consciousness, unlikely intracranial hemorrhage, stroke, posterior stroke. No signs of traumatic injuries to face, cervical spine. Chest pain likely musculoskeletal as it is reproducible on exam, unlikely traumatic tamponade, dissection, ACS, PE. Will rule out rib fractures. Unlikely traumatic injury to abdomen, pelvis. Plan labs, EKG, x-ray, imaging of head. Differential Diagnosis Differential Diagnoses: The differential diagnosis associated with the presentation includes This is likely concussion without loss of consciousness, unlikely intracranial hemorrhage, stroke, posterior stroke. No signs of traumatic injuries to face, cervical spine. Chest pain likely musculoskeletal as it is reproducible on exam, unlikely traumatic tamponade, dissection, ACS, PE. Will rule out rib fractures. Unlikely traumatic injury to abdomen, pelvis. Admission/Observation Consideration of admission/observation: Escalation of care including admission/observation considered Unlikely Lab Data MDM Lab Attestation statement: I reviewed the patient's lab results. 02/23/23 13:49 02/23/23 13:49 Labs: Lab Results 02/23/23 02/23/23 02/23/23 Range/Units 13:48 13:48 13:48 WBC (4.8-10.8) X10*3/uL RBC (4.60-5.80) X10*6/uL Hgb (14.0-18.0) g/dl Hct (42.0-52.0) % MCV (80.0-98.0) fL MCH (27.0-33.0) pg MCHC (31.0-36.0) g/dl RDW (11.0-16.0) % Plt Count (160-400) X10*3/uL MPV (9.4-12.4) fL Immature Gran % (Auto) (0.0-0.4) % Neut % (Auto) (45-73) % Lymph % (Auto) (20-40) % [place] % (Auto) (2-11) % Eos % (Auto) (0-4) % Baso % (Auto) (0-2) % Lymph # (Auto) (1.2-4.9) X10*3/uL [place] # (Auto) (0.1-1.2) X10*3/uL Eos # (Auto) (0.0-0.4) X10*3/uL Baso # (Auto) (0.0-0.2) X10*3/uL Abs Immat Gran (auto) (0.00-0.03) X10*3/uL Absolute Neuts (auto) (2.0-8.3) x10*3/uL Absolute Nucleated RBC (0.0-0.012) X10*3/uL Nucleated RBC % (auto) (0.0-0.2) /100WBC D-Dimer High Sensitivty < 150 NG/ML Sodium (135-145) mmol/L Potassium (3.3-5.1) mmol/L Chloride (96-108) mmol/L Carbon Dioxide (22-29) mmol/L Anion Gap (12-20) BUN (9-16) mg/dL Creatinine (0.5-1.4) mg/dL Estim Creat Clear Calc Estimated GFR Random Glucose (60-115) mg/dL Calcium (8.4-10.2) mg/dL Magnesium (1.6-2.6) mg/dL Total Bilirubin (0.0-1.0) mg/dL AST (5-37) U/L ALT (0-40) U/L Alkaline Phosphatase (39-117) U/L Troponin I High Sens < 2.7 (<3.5-35.0) ng/L B-Natriuretic Peptide 44 (<100) pg/mL Total Protein (6.5-8.0) g/dL Albumin (3.5-5.0) g/dL Urine Color Urine Appearance Urine pH (5.0-9.0) Ur Specific [place] (1.005-1.025) Urine Protein (Neg-Trace) mg/dL Urine Glucose (UA) (Negative) mg/dL Urine Ketones (Negative) mg/dL Urine Blood (Negative) Urine Nitrite (Negative) Ur Leukocyte Esterase (Negative) 02/23/23 02/23/23 02/23/23 Range/Units 13:49 13:49 14:26 WBC 6.9 (4.8-10.8) X10*3/uL RBC 5.08 (4.60-5.80) X10*6/uL Hgb 15.3 (14.0-18.0) g/dl Hct 45.8 (42.0-52.0) % MCV 90.2 (80.0-98.0) fL MCH 30.1 (27.0-33.0) pg MCHC 33.4 (31.0-36.0) g/dl RDW 12.8 (11.0-16.0) % Plt Count 123 L D (160-400) X10*3/uL MPV 12.5 H (9.4-12.4) fL Immature Gran % (Auto) 0.3 (0.0-0.4) % Neut % (Auto) 77.9 H (45-73) % Lymph % (Auto) 15.4 L (20-40) % [place] % (Auto) 4.6 (2-11) % Eos % (Auto) 1.4 (0-4) % Baso % (Auto) 0.4 (0-2) % Lymph # (Auto) 1.1 L (1.2-4.9) X10*3/uL [place] # (Auto) 0.3 (0.1-1.2) X10*3/uL Eos # (Auto) 0.1 (0.0-0.4) X10*3/uL Baso # (Auto) 0.0 (0.0-0.2) X10*3/uL Abs Immat Gran (auto) 0.02 (0.00-0.03) X10*3/uL Absolute Neuts (auto) 5.4 (2.0-8.3) x10*3/uL Absolute Nucleated RBC 0.000 (0.0-0.012) X10*3/uL Nucleated RBC % (auto) 0.0 (0.0-0.2) /100WBC D-Dimer High Sensitivty NG/ML Sodium 142 (135-145) mmol/L Potassium 4.1 (3.3-5.1) mmol/L Chloride 108 (96-108) mmol/L Carbon Dioxide 26 (22-29) mmol/L Anion Gap 12 (12-20) BUN 11 (9-16) mg/dL Creatinine 0.72 (0.5-1.4) mg/dL Estim Creat Clear Calc 148.4 Estimated GFR > 60 Random Glucose 98 (60-115) mg/dL Calcium 9.7 (8.4-10.2) mg/dL Magnesium 1.8 (1.6-2.6) mg/dL Total Bilirubin 0.5 (0.0-1.0) mg/dL AST 26 (5-37) U/L ALT 18 (0-40) U/L Alkaline Phosphatase 125 H (39-117) U/L Troponin I High Sens (<3.5-35.0) ng/L B-Natriuretic Peptide (<100) pg/mL Total Protein 6.8 (6.5-8.0) g/dL Albumin 3.9 (3.5-5.0) g/dL Urine Color Yellow Urine Appearance Clear Urine pH 8.5 (5.0-9.0) Ur Specific [place] 1.010 (1.005-1.025) Urine Protein Negative (Neg-Trace) mg/dL Urine Glucose (UA) Negative (Negative) mg/dL Urine Ketones Negative (Negative) mg/dL Urine Blood Negative (Negative) Urine Nitrite Negative (Negative) Ur Leukocyte Esterase Negative (Negative) Independent Interpretation I performed an independent interpretation of an: EKG (Ventricular rate of 87, [place] normal, QRS normal, QT/QTC normal. EKG normal sinus rhythm low-voltage QRS, no ST elevations or inversions concerning for acute ischemia. No significant changes when compared to previous ), Plain X-Ray and CT Scan Radiology Impression Discussion of test interpretation with radiology: I have reviewed the radiologist's reading. Core Measures AMI core measures followed: Yes Measure exclusions: not indicated Critical Care Time Critical Care Time Critical Care Time: No Discharge Plan Discharge Clinical Impression: Chest pain, Concussion, Rib pain, Contusion Patient Disposition: Home, Self-Care Instructions: Chest Pain (ED), Concussion (ED), Post Concussion Syndrome (ED), Chest Wall Pain (ED) Additional Instructions: Take your medications as prescribed. If you were prescribed antibiotics today, it is important that you take your medication to their entirety, do not skip any doses, do not finish them early. Follow-up with your primary care provider this week. Return to the emergency department with new or worsening symptoms. Such as fevers, chills, chest pain, shortness of breath, nausea, vomiting, dizziness, headache, vision changes, lethargy In case of emergency call 911 Toradol has been sent to your pharmacy, you tolerated this well in the department. Please take this as prescribed do not take this with ibuprofen, or other NSAIDs, do not mix this with alcohol. Side effects of this medication including increased risk for bleeding and possible kidney injury. ?CT/CT head/brain wo IV con IMPRESSION: No CT evidence of intracranial space-occupying mass, bleed or infarct. ? ??CT/CT cervical spine wo IV con IMPRESSION: No acute processes. Mild degenerative disc disease at C5/C6 ?XR/XR ribs BI min 4V w CXR1V IMPRESSION: No acute fractures. Elevation of the right hemidiaphragm with right lung base atelectasis ? Prescriptions: New lidocaine 5 % adhesive patch,medicated 1 patch topical DAILY PRN (Reason: pain) Qty: 15 0RF Rx Instructions: leave on most painful area for up to 12 hrs ketorolac 10 mg tablet 10 mg PO TID PRN (Reason: pain) 5 Days Qty: 15 0RF No Action clonazepam 1 mg tablet 1 tab PO TID PRN (Reason: Anxiety) eszopiclone 3 mg tablet 1 tab PO BEDTIME PRN (Reason: Sleep) naloxone 4 mg/actuation spray,non-aerosol 1 spray intranasal PER PKG DIR PRN (Reason: Opioid Overdose) propranolol 20 mg Tablet 20 mg PO TID 30 Days Qty: 90 0RF Protocol: Hold for SBP/HR < HOLD for SBP < : 100 HOLD for HR < : 60 aripiprazole [Abilify] 5 mg Tablet 7.5 mg PO DAILY 30 Days Qty: 45 0RF gabapentin 600 mg tablet 600 mg PO TID 30 Days Qty: 90 0RF trazodone 100 mg Tablet See Rx Instructions .ROUTE .COMPLEX PRN (Reason: Insomnia) 30 Days Qty: 75 0RF Rx Instructions: take 2 or 2.5 tabs as needed for insomnia nicotine (polacrilex) 4 mg gum 4 mg PO Q2H PRN (Reason: Nicotine Cravings) 30 Days Qty: 100 0RF buspirone 30 mg tablet 30 mg PO BID 30 Days Qty: 60 0RF nicotine 21 mg/24 hr patch 24 hour 1 patch topical DAILY PRN (Reason: nicotine cravings) 28 Days Qty: 28 0RF hydroxyzine HCl 25 mg tablet 25 mg PO QID 30 Days Qty: 120 0RF fluticasone propionate 50 mcg/actuation [place],Suspension 2 spray INTRANASAL DAILY 30 Days Qty: 16 0RF Rx Instructions: administer into each nostril venlafaxine 75 mg capsule,extended release 24hr 75 mg PO DAILY 30 Days Qty: 30 0RF Rx Instructions: take with 150mg capsule for total of 225mg daily venlafaxine 150 mg capsule,extended release 24hr 150 mg PO QAM 30 Days Qty: 30 0RF Rx Instructions: take with 75mg capsule for total of 225mg daily buprenorphine-naloxone 12-3 mg film 1 film sublingual BID 7 Days Qty: 14 0RF Referrals: Physician,Unknown J [Primary Care Provider] - 3 days Stand Alone Forms: Work/School Release
[2023-02-23 13:55] LABS: MANUAL DIFF FLAG NO
[2023-02-23 13:56] LABS: Basophils Percent Auto 0.4 % (0-2); Eosinophils Absolute Auto 0.1 X10*3/uL (0.0-0.4); Eosinophils Percent Auto 1.4 % (0-4); Hematocrit 45.8 % (42.0-52.0); Hemoglobin 15.3 g/dl (14.0-18.0); Imm Gran Abs Auto 0.02 X10*3/uL (0.00-0.03); Imm Gran Pct Auto 0.3 % (0.0-0.4); Lymphocytes Absolute Auto 1.1 X10*3/uL (1.2-4.9); Lymphocytes Percent Auto 15.4 % (20-40); Mean Corpuscular HGB Conc 33.4 g/dl (31.0-36.0); Mean Corpuscular Hemoglobin 30.1 pg (27.0-33.0); Mean Corpuscular Volume 90.2 fL (80.0-98.0); Mean Platelet Volume 12.5 fL (9.4-12.4); Monocytes Absolute Auto 0.3 X10*3/uL (0.1-1.2); Monocytes Percent Auto 4.6 % (2-11); Neutrophils Absolute Auto 5.4 x10*3/uL (2.0-8.3); Neutrophils Percent Auto 77.9 % (45-73); Platelet Count 123 X10*3/uL (160-400); Red Blood Count 5.08 X10*6/uL (4.60-5.80); Red Cell Distribution Width 12.8 % (11.0-16.0); White Blood Count 6.9 X10*3/uL (4.8-10.8)
[2023-02-23 14:04] LABS: D Dimer High Sensitivity < 150 NG/ML
[2023-02-23 14:13] LABS: Alanine Aminotransferase 18 U/L (0-40); Albumin Level 3.9 g/dL (3.5-5.0); Alkaline Phosphatase 125 U/L (39-117); Anion Gap 12 (12-20); Aspartate Amino Transferase 26 U/L (5-37); Bilirubin Total 0.5 mg/dL (0.0-1.0); Blood Urea Nitrogen 11 mg/dL (9-16); Calcium 9.7 mg/dL (8.4-10.2); Carbon Dioxide 26 mmol/L (22-29); Chloride 108 mmol/L (96-108); Creatinine Clr Calc Pharmacy 148.4; Estimated Glomerular Filt Rate > 60; Glucose Random 98 mg/dL (60-115); Magnesium 1.8 mg/dL (1.6-2.6); Potassium 4.1 mmol/L (3.3-5.1); Sodium 142 mmol/L (135-145); Total Protein 6.8 g/dL (6.5-8.0)
[2023-02-23 14:23] LABS: Troponin-I High Sensitivity < 2.7 ng/L (<3.5-35.0)
[2023-02-23 14:31] VITALS: BP 118/80; PULSE 85; RESP 12; O2SAT 95
[2023-02-23 14:39] LABS: Appearance Urine Clear; Color Urine Yellow; Glucose Urine UA Negative (Negative); Leukocyte Esterase Urine Negative (Negative); Nitrite Urine Negative (Negative); PH 8.5 (5.0-9.0); Urine Blood Negative (Negative); Urine Ketones Negative (Negative); Urine Protein Negative (Neg-Trace)
[2023-02-23] MEDS: ondansetron HCL 4 MG/2 ML VIAL IVPUSH (14:51)
[2023-02-23] MEDS: Acetaminophen 325 MG TABLET 650 MG PO (15:02)
[2023-02-23 15:10] LABS: B Type Natriuretic Peptide 44 pg/mL (<100)
[2023-02-23 16:02] VITALS: BP 109/64; PULSE 74; RESP 12; O2SAT 97
[2023-02-23 16:17] VITALS: PULSE 86
== END 2023-02-23 16:42 | disposition home or self-care (01) ==
PROVIDERS: Physician Assistant; Emergency Provider Emergency Medicine
DX: S06.0X0A Concussion without loss of consciousness, initial encounter (principal); S20.20XA Contusion of thorax, unspecified, initial encounter; W19.XXXA Unspecified fall, initial encounter; Y93.9 Activity, unspecified; Y92.9 Unspecified place or not applicable; Y99.9 Unspecified external cause status; R07.9 Chest pain, unspecified; R51.9 Headache, unspecified; Z79.899 Other long term (current) drug therapy
CPT/HCPCS: 36415; 70450; 71111; 72125; 80053; 81003; 83735; 83880; 84484; 85025; 85379; 93005; 96374; 99285; J2270; J2405

== ENCOUNTER 2023-06-29 11:51 | Inpatient (IN) | payer MEDICARE, MEDICAID, SELFPAY ==
[2023-06-29 12:03] VITALS: BP 138/84; PULSE 88; O2SAT 98
[2023-06-29 12:53] VITALS: BP 122/88; PULSE 96; RESP 18; TEMP 36.7; O2SAT 96; BMI 38.2
--- NOTE | 2023-06-29 12:57 | ED_ITS ---
HPI - General Adult General Chief complaint: Abdominal Pain Stated complaint: ABD PAIN,ANX PER EMS Time Seen by Provider: 06/29/23 20:13 Source: patient Mode of arrival: ambulatory Limitations: no limitations History of Present Illness HPI narrative: Patient is a 58 year old assigned male at with a history of PINA and OCD presenting to the emergency department today with nausea, vomiting, and homicidal ideation. Patient states that he has been throwing up and nauseous since his psychiatric medications got changed. Patient states that he believes the dosing is now messed up because he is homicidal. Patient denies any thoughts of hurting himself but does have thoughts of hurting others. Patient denies any dizziness, lightheadedness, abdominal pain, fever, chills, blurry vision, double vision, loss of vision, chest pain, difficulty breathing, shortness of breath, back pain, night sweats, pain with urination, increased urinary frequency, increased urinary urgency, blood in his urine or stool, syncope or a near syncopal episode, recent trauma or falls, bowel incontinence, bladder incontinence, bowel retention, bladder retention, or any other complaints at this time. Onset (ago): day(s) Relieving factors: none Exacerbating factors: none Associated symptoms: nausea/vomiting Treatments prior to arrival: none Related Data Home Medications Medication Instructions Recorded Confirmed clonazepam 2 mg tablet 2 mg PO BID PRN Anxiety 06/29/23 06/29/23 fluoxetine 40 mg capsule 80 mg PO QAM 06/29/23 06/29/23 gabapentin 800 mg tablet 800 mg PO TID 06/29/23 06/29/23 omeprazole 40 mg capsule,delayed 40 mg PO DAILY 06/29/23 06/29/23 release quetiapine 50 mg tablet 50 mg PO BID PRN Anxiety 06/29/23 06/29/23 zolpidem 12.5 mg tablet,extended 12.5 mg PO BEDTIME 06/29/23 06/29/23 release,multiphase Previous Rx's Medication Instructions Recorded buspirone 30 mg tablet 30 mg PO BID 30 days #60 tabs 09/11/21 fluticasone propionate 50 2 spray intranasal DAILY 30 days 09/11/21 mcg/actuation nasal #16 grams spray,suspension buprenorphine 12 mg-naloxone 3 mg 1 film sublingual BID 7 days #14 ea 09/12/21 sublingual film Allergies Allergy/AdvReac Type Severity Reaction Status Date / Time No Known Allergies Allergy Verified 06/29/23 12:53 Review of Systems 2 Constitutional: Constitutional: Reports no additional constitutional complaints, Denies chills, Denies fever(s) and Denies night sweats Eyes: Eyes: Reports no additional eye complaints, Denies blurry vision, Denies change in vision, Denies diplopia, Denies eye discharge, Denies loss of vision and Denies eye pain ENT: Denies dizziness Cardiovascular: Cardiovascular: Reports no additional cardiovascular complaints, Denies chest pain, Denies lightheadedness, Denies Loss of Consciousness and Denies dyspnea Respiratory: Respiratory: Reports no additional respiratory complaints and Denies dyspnea Gastrointestinal: Gastrointestinal: Reports no additional gastrointestinal complaints, Denies abdominal pain, Denies melena, Denies hematochezia, Denies change in bowel habits, Denies change in stool character, Reports nausea and Reports vomiting Genitourinary: Genitourinary: Reports no additional male genitourinary complaints, Denies hematuria, Denies oliguria, Denies difficulty urinating, Denies dysuria, Denies urinary frequency, Denies urinary hesitancy, Denies urinary incontinence and Denies urinary urgency Musculoskeletal: Musculoskeletal: Reports no additional musculoskeletal complaints, Denies numbness and Denies tingling Neurologic: Denies dizziness, Denies loss of vision, Denies numbness and Denies tingling Psychiatric: Psychiatric: Reports homicidal ideation and Denies suicidal ideation Endocrine: Endocrine: Reports no additional endocrine complaints Hematologic/Lymphatic: Hematologic/Lymphatic: Reports no additional hematologic/lymphatic complaints Allergic/Immunologic: Allergic/Immunologic: Reports no additional allergic/immunologic complaints [facility] Past Medical History Attestation statement: The following information was validated with the patient. Source: old records reviewed and nursing notes reviewed Medical History OFELIA (obstructive sleep apnea) Obsessive-compulsive disorder with good or fair insight Social History Social History Household Members: Friend(s) Housing: Condominium Do you presently have visiting nurse or other home services: Yes Patient Tobacco Use Status: Current everyday Tobacco user Tobacco use type: Cigarette Cigarettes Per Day: 20 Years Smoked: 20 e-Cigarette/Vaping Use: Never Used Second Hand Smoke Exposure: Yes Substance Use Type: Marijuana and Sedatives Advance Directives: No Advance Directives Information Provided: Yes service: No Sexual orientation: Did not discuss Physical Exam ED Vital Signs: Vital Signs - 24 hr 06/29/23 19:26 06/30/23 06:31 06/30/23 07:18 Temperature 97.6 F 98.2 F 98.3 F Pulse Rate 80 64 92 Respiratory Rate 16 18 12 Blood Pressure 116/72 128/86 Pulse Oximetry 97 90 L 94 Oxygen Delivery Method Room Air Room Air Room Air 06/30/23 15:00 06/30/23 15:55 06/30/23 16:00 Temperature 98 F Pulse Rate 72 Respiratory Rate 16 16 16 Blood Pressure 96/58 L Pulse Oximetry 87 L 87 L 92 Oxygen Delivery Method Room Air Room Air Room Air BMI result Body Mass Index 38.2 Const General: cooperative, no acute distress, alert and awake Nutritional Appearance: well nourished Orientation/consciousness: patient oriented x3 Limitations: no limitations HENMT Head: Yes normal to inspection and Yes atraumatic Ears: hearing grossly normal bilaterally and external ears normal General nose exam: Normal external nose present, no nasal discharge noted and no epistaxis Face and sinus: Yes normal facial exam, No abrasion and No laceration Mouth: Normal oral and palatal mucosa present, no drooling and no muffled voice Eyes General: appearance normal, both eyes and all related structures Periorbital: periorbital findings normal Eyelids: Yes eyelids normal Conjunctivae: conjunctivae normal Pupils: Equal, round and reactive pupils present EOM: EOMs intact bilaterally Neck Neck: Yes normal visual inspection, Yes full ROM and Yes no lymphadenopathy Chest Chest palpation & inspection: normal inspection of the chest Resp Effort & Inspection: normal respiratory effort and able to speak in complete sentences GI Inspection: Yes normal to inspection Palpation (GI): Soft to palpation, not firm, nontender and no guarding Neuro General: patient oriented x3 and moves all extremities Cranial nerves: Yes Equal, round and reactive pupils present Cognition (Neuro): normal cognition Motor exam (neuro): 5/5 motor strength present throughout Sensory Exam: Normal double simultaneous stimulation for sensation Coordination: [id number] test normal Extrem General: Yes normal to inspection, Yes full ROM and Yes capillary refill normal Psych Appearance: grossly normal Mental Status: mental status grossly normal Affect: normal affect Attitude: cooperative Thought process: Normal thought process present Thought content: suicidality and Homicidality present Course Course Course Narrative: This is a rapid medical exam: Additional HPI, ROS, PE not included below will be deferred to primary provider. Patient is a 58-year-old male with history of OCD, agoraphobia presenting to the ED with complaint of nausea and vomiting since Friday as well as increased anxiety. Plan: viral swabs, UA, labs Reevaluation(s) Reevaluation #1: The patient had been placed in the Behavioral Health pod yesterday. Today he was taken out of the behavior Health pod because there were patient is requiring more intensive seclusion. The patient was therefore brought into the main emergency department. The patient was common cooperative. The patient's nurse was concerned that the patient's oxygen saturations seemed mildly low. I went to see the patient. He had no respiratory complaints. He was having oxygen saturations on room air between 92 and 95%. His lungs are fairly clear. He admits to being a pack-a-day smoker. I suspect that any drop in his oxygen saturations are likely related to obesity hypoventilation syndrome rather than anything more acute. I did not see any indication for acute intervention. He then requested something for headache and I ordered acetaminophen. Medications Administered Generic Name Dose Route Start Last Admin Trade Name Andrey PRN Reason Stop Dose Admin Buspirone HCl 30 mg 06/29/23 21:45 06/30/23 08:10 Buspirone Hcl 10 Mg Tablet PO 30 mg BID MAURISIO Administration Clonazepam 2 mg 06/29/23 21:43 06/30/23 08:16 Clonazepam 1 Mg Tablet PO 2 mg BID PRN Administration Anxiety Fluoxetine HCl 80 mg 06/30/23 09:00 06/30/23 08:10 Fluoxetine Hcl 20 Mg Capsule PO 80 mg DAILY MAURISIO Administration Fluticasone Propionate 2 spray 06/30/23 09:00 06/30/23 12:35 Fluticasone Propionate Nasal 16 Gm [place] NOSTRIL-B 2 spray DAILY MAURISIO Administration Gabapentin 800 mg 06/29/23 21:45 06/30/23 16:35 Gabapentin 400 Mg Capsule PO 800 mg TID MAURISIO Administration Omeprazole 40 mg 06/30/23 06:30 06/30/23 06:37 Omeprazole 40 Mg Capsule. PO 40 mg DAILY@0630 MAURISIO Administration Quetiapine Fumarate 50 mg 12/31/23 21:43 06/30/23 13:32 Quetiapine Fumarate 50 Mg Tablet PO 50 mg BID PRN Administration Anxiety Discontinued Medications Generic Name Dose Route Start Last Admin Trade Name Andrey PRN Reason Stop Dose Admin Acetaminophen 975 mg 06/30/23 11:30 06/30/23 12:36 Acetaminophen 325 Mg Tablet PO 06/30/23 11:31 975 mg ONCE ONE Administration Buprenorphine/Naloxone 1 film 06/30/23 10:55 06/30/23 11:02 Buprenorphine/Naloxone 8/2 Mg Film SUBLINGUAL 06/30/23 10:56 1 film BID ONE Administration Ondansetron HCl 4 mg 06/29/23 20:37 06/29/23 20:58 Ondansetron Odt 4 Mg Tab.Rapdis TRANSLINGU 06/29/23 20:38 4 mg ONCE ONE Administration Ondansetron HCl 4 mg 06/30/23 07:23 06/30/23 07:28 Ondansetron Odt 4 Mg Tab.Rapdis TRANSLINGU 06/30/23 07:24 4 mg ONCE ONE Administration Zolpidem Tartrate 5 mg 06/29/23 22:04 06/29/23 22:10 Zolpidem Tartrate 5 Mg Tablet PO 06/29/23 22:05 5 mg ONCE STA Administration Medical Decision Making Medical Decision Making [facility] Narrative: Patient is a 58 year old assigned male at with a history of PINA and OCD presenting to the emergency department today with nausea, vomiting, and homicidal thoughts. Patient's physical exam was unremarkable. Patient's blood work was unremarkable. Patient's urine is pending. I explained my physical exam findings as well as all test results to the patient. I answered all questions asked by the patient. Patient's nausea and vomiting has now resolved. Patient requesting to be evaluated for his homicidal thoughts. Patient's disposition will be determined after CARE evaluation. Differential Diagnosis Differential Diagnoses: The differential diagnosis associated with the presentation includes Nausea Vomiting Psychiatric medication adjustment Homicidal ideation Admission/Observation Consideration of admission/observation: Escalation of care including admission/observation considered Admission will be determined after CARE team evaluation. Lab Data [facility] Lab Attestation statement: I reviewed the patient's lab results. My interpretation of these studies and their corresponding values is that they are grossly normal. 06/29/23 13:53 06/29/23 13:53 Labs: Lab Results 06/29/23 06/29/23 Range/Units 13:53 20:40 WBC 8.2 (4.8-10.8) X10*3/uL RBC 5.40 (4.60-5.80) X10*6/uL Hgb 15.8 (14.0-18.0) g/dl Hct 47.9 (42.0-52.0) % MCV 88.7 (80.0-98.0) fL MCH 29.3 (27.0-33.0) pg MCHC 33.0 (31.0-36.0) g/dl RDW 13.6 (11.0-16.0) % Plt Count 145 L (160-400) X10*3/uL MPV 12.4 (9.4-12.4) fL Immature Gran % (Auto) 0.5 H (0.0-0.4) % Neut % (Auto) 82.0 H (45-73) % Lymph % (Auto) 11.3 L (20-40) % [place] % (Auto) 4.8 (2-11) % Eos % (Auto) 0.9 (0-4) % Baso % (Auto) 0.5 (0-2) % Lymph # (Auto) 0.9 L (1.2-4.9) X10*3/uL [place] # (Auto) 0.4 (0.1-1.2) X10*3/uL Eos # (Auto) 0.1 (0.0-0.4) X10*3/uL Baso # (Auto) 0.0 (0.0-0.2) X10*3/uL Abs Immat Gran (auto) 0.04 H (0.00-0.03) X10*3/uL Absolute Neuts (auto) 6.7 (2.0-8.3) x10*3/uL Absolute Nucleated RBC 0.000 (0.0-0.012) X10*3/uL Nucleated RBC % (auto) 0.0 (0.0-0.2) /100WBC Sodium 140 (135-145) mmol/L Potassium 4.3 (3.3-5.1) mmol/L Chloride 104 (96-108) mmol/L Carbon Dioxide 27 (22-29) mmol/L Anion Gap 13 (12-20) BUN 12 (9-16) mg/dL Creatinine 0.81 (0.5-1.4) mg/dL Estim Creat Clear Calc 136.6 Estimated GFR > 60 Random Glucose 85 (60-115) mg/dL Calcium 9.6 (8.4-10.2) mg/dL Total Bilirubin 0.5 (0.0-1.0) mg/dL AST 39 H (5-37) U/L ALT 43 H (0-40) U/L Alkaline Phosphatase 202 H (39-117) U/L Total Protein 7.3 (6.5-8.0) g/dL Albumin 4.2 (3.5-5.0) g/dL Urine Color Dark Yellow Urine Appearance Clear Urine pH 5.5 (5.0-9.0) Ur Specific [place] >= 1.030 H (1.005-1.025) Urine Protein Negative (Neg-Trace) mg/dL Urine Glucose (UA) Negative (Negative) mg/dL Urine Ketones Trace (Negative) mg/dL Urine Blood Negative (Negative) Urine Nitrite Negative (Negative) Ur Leukocyte Esterase Trace H (Negative) Urine RBC 0-2 (0-2) /HPF Urine WBC 0-5 (0-5) /HPF Ur Squamous Epith Cells 0-2 (0-2) /HPF Urine Bacteria None Seen (None Seen) Hyaline Casts 0-2 (0-2) /LPF Urine Opiates Screen Not Detected (Not Detect) Urine Fentanyl Screen Not Detected (Not Detect) Ur Barbiturates Screen Not Detected (Not Detect) Ur Phencyclidine Scrn Not Detected (Not Detect) Ur Amphetamines Screen Not Detected (Not Detect) U Benzodiazepines Scrn POSITIVE H (Not Detect) Urine Cocaine Screen Not Detected (Not Detect) U Marijuana (THC) Screen POSITIVE H (Not Detect) Influenza Type A (PCR) NEGATIVE (Negative) Influenza Type B (PCR) NEGATIVE (Negative) RSV RNA Qual (PCR) NEGATIVE (Negative) SARS-CoV-2 RNA (RT-PCR) NEGATIVE (Negative) Critical Care Time Critical Care Time Critical Care Time: Yes Total Critical Care Time: 35 Attestation: I spent 35 minutes of Critical Care Time with this patient. This does not include time spent on separately reported billable procedures. Discharge Plan Discharge Clinical Impression: Nausea & vomiting, Homicidal ideation Patient Disposition: Still a Patient Prescriptions: No Action buspirone 30 mg tablet 30 mg PO BID 30 Days Qty: 60 0RF fluticasone propionate 50 mcg/actuation [place],Suspension 2 spray INTRANASAL DAILY 30 Days Qty: 16 0RF Rx Instructions: administer into each nostril buprenorphine-naloxone 12-3 mg film 1 film sublingual BID 7 Days Qty: 14 0RF fluoxetine 40 mg capsule 80 mg PO QAM omeprazole 40 mg capsule,delayed release(DR/EC) 40 mg PO DAILY gabapentin 800 mg tablet 800 mg PO TID clonazepam 2 mg tablet 2 mg PO BID PRN (Reason: Anxiety) zolpidem 12.5 mg tablet,ext release multiphase 12.5 mg PO BEDTIME quetiapine 50 mg tablet 50 mg PO BID PRN (Reason: Anxiety)
[2023-06-29 13:59] LABS: MANUAL DIFF FLAG NO
[2023-06-29 14:01] LABS: Basophils Percent Auto 0.5 % (0-2); Eosinophils Absolute Auto 0.1 X10*3/uL (0.0-0.4); Eosinophils Percent Auto 0.9 % (0-4); Hematocrit 47.9 % (42.0-52.0); Hemoglobin 15.8 g/dl (14.0-18.0); Imm Gran Abs Auto 0.04 X10*3/uL (0.00-0.03); Imm Gran Pct Auto 0.5 % (0.0-0.4); Lymphocytes Absolute Auto 0.9 X10*3/uL (1.2-4.9); Lymphocytes Percent Auto 11.3 % (20-40); Mean Corpuscular Hemoglobin 29.3 pg (27.0-33.0); Mean Corpuscular Volume 88.7 fL (80.0-98.0); Mean Platelet Volume 12.4 fL (9.4-12.4); Monocytes Absolute Auto 0.4 X10*3/uL (0.1-1.2); Monocytes Percent Auto 4.8 % (2-11); Neutrophils Absolute Auto 6.7 x10*3/uL (2.0-8.3); Platelet Count 145 X10*3/uL (160-400); Red Cell Distribution Width 13.6 % (11.0-16.0); White Blood Count 8.2 X10*3/uL (4.8-10.8)
[2023-06-29 14:34] LABS: Alanine Aminotransferase 43 U/L (0-40); Albumin Level 4.2 g/dL (3.5-5.0); Alkaline Phosphatase 202 U/L (39-117); Anion Gap 13 (12-20); Aspartate Amino Transferase 39 U/L (5-37); Bilirubin Total 0.5 mg/dL (0.0-1.0); Blood Urea Nitrogen 12 mg/dL (9-16); Calcium 9.6 mg/dL (8.4-10.2); Carbon Dioxide 27 mmol/L (22-29); Chloride 104 mmol/L (96-108); Creatinine Clr Calc Pharmacy 136.6; Estimated Glomerular Filt Rate > 60; Glucose Random 85 mg/dL (60-115); Potassium 4.3 mmol/L (3.3-5.1); Sodium 140 mmol/L (135-145); Total Protein 7.3 g/dL (6.5-8.0)
[2023-06-29 14:39] LABS: Influenza A PCR NEGATIVE (Negative); Influenza B PCR NEGATIVE (Negative); Resp Syncy Virus RNA Qual PCR NEGATIVE (Negative); SARS COV2 PCR INHOUSE NEGATIVE (Negative)
[2023-06-29 19:26] VITALS: PULSE 80; RESP 16; TEMP 36.4; O2SAT 97
--- NOTE | 2023-06-29 19:32 | PC.NURSE ---
pt brought back to [facility] from ,pt sts that he is 10x worse than when he arrived in dept. this nurse asked what was hurting pt at this time, to which he responded my brain hurts, my brain is all messed up asked pt about SI/ HI, pt stated to nurse I don't want to hurt myself, but somebody else . stated that his psych meds need adjusting, and he knows [facility] has helped him in the past. Charge nurse notified. pt to be transferrred to main ED. security notified
[2023-06-29 20:49] LABS: Appearance Urine Clear; Color Urine Dark Yellow; Glucose Urine UA Negative (Negative); Leukocyte Esterase Urine Trace (Negative); Nitrite Urine Negative (Negative); PH 5.5 (5.0-9.0); Specific Gravity - Urine >= 1.030 (1.005-1.025); UMIC TRIGGER UACC YES; Urine Blood Negative (Negative); Urine Ketones Trace mg/dL (Negative); Urine Protein Negative (Neg-Trace)
[2023-06-29 20:54] LABS: Bacteria Urine None Seen (None Seen); Hyaline Casts Urine 0-2 /LPF (0-2); RBC Urine 0-2 /HPF (0-2); Squamous Epithelial Cell Urine 0-2 /HPF (0-2); WBC Urine 0-5 /HPF (0-5)
[2023-06-29 20:57] LABS: Amphetamine Screen Urine Not Detected (Not Detect); Barbiturates, Urine Not Detected (Not Detect); Benzodiazepines Screen Urine POSITIVE (Not Detect); Cannabinoid Screen Urine POSITIVE (Not Detect); Cocaine Screen Urine Not Detected (Not Detect); Fentanyl, urine Not Detected (Not Detect); Opiate Screen Urine Not Detected (Not Detect); Phencyclidine Screen Urine Not Detected (Not Detect)
[2023-06-29] MEDS: Ondansetron ODT 4 MG TAB.RAPDIS TRANSLINGU (20:58)
--- NOTE | 2023-06-29 21:03 | PC.NURSE ---
This automatic typewriter inspector assumed care of this Pt at 1950. Pt ambulated independently with stedy gait from [facility]. Pt calm and cooperative, denies SI/AH/VH, states I feel like going off when asked about HI. Pt medicated per MAR, requesting anxiety medication.
[2023-06-29] MEDS: Gabapentin 400 MG CAPSULE 800 MG PO (22:06)
[2023-06-29] MEDS: busPIRone HCl 10 MG TABLET 30 MG PO (22:07)
[2023-06-29] MEDS: clonazePAM 1 MG TABLET 2 MG PO (22:07)
[2023-06-29] MEDS: Zolpidem Tartrate 5 MG TABLET PO (22:10)
[2023-06-30] VITALS (7 sets, daily range): BP systolic 96–128; BP diastolic 58–86; PULSE 64–92; RESP 12–18; TEMP 36.6–36.8; O2SAT 87–94
[2023-06-30] MEDS: Omeprazole 40 MG CAPSULE.DR PO (06:37)
--- NOTE | 2023-06-30 06:39 | PC.NURSE ---
During morning vitals, PT o2 sat dropping to 85%. Pt reported to this RN that he uses a cpap machine at times at home. He is not aware of his settings. PT endorsing GOODMAN and dizziness at this time. Informed charge nurse and Dr. Hu. PT needs to go to main ED when a bed become available and to have respiratory therapy assess for proper settings. Plan of care ongoing
[2023-06-30] MEDS: Ondansetron ODT 4 MG TAB.RAPDIS TRANSLINGU ×2 (07:28→19:29)
[2023-06-30] MEDS: FLUoxetine HCl 20 MG CAPSULE 80 MG PO (08:10)
[2023-06-30] MEDS: Gabapentin 400 MG CAPSULE 800 MG PO ×3 (08:10→22:11)
[2023-06-30] MEDS: busPIRone HCl 10 MG TABLET 30 MG PO ×2 (08:10→22:11)
[2023-06-30] MEDS: clonazePAM 1 MG TABLET 2 MG PO ×2 (08:16→18:17)
[2023-06-30] MEDS: Buprenorphine/Naloxone 8/2 mg FILM 1 FILM SUBLINGUAL (11:02)
--- NOTE | 2023-06-30 11:21 | MHC.CARE ---
RAD team conducted a statewide bed[place], unfortunately no beds are available statewide. RAD Team will continue bedsearch tomorrow (07/01) if deemed necessary
[2023-06-30] MEDS: Fluticasone Propionate Nasal 16 GM SPRAY 2 SPRAY NOSTRIL-B (12:35)
[2023-06-30] MEDS: Acetaminophen 325 MG TABLET 975 MG PO ×2 (12:36→17:37)
[2023-06-30] MEDS: QUEtiapine Fumarate 50 MG TABLET PO (13:32)
[2023-06-30] MEDS: Nicotine 21 MG PATCH.TD24 TRANSDERMA (17:37)
--- NOTE | 2023-06-30 18:18 | PC.NURSE ---
given klonopin early per md stephens for anxiety
[2023-06-30] MEDS: Zolpidem Tartrate 5 MG TABLET PO (22:11)
--- NOTE | 2023-07-01 | ECG_ITS ---
Test Reason : psych Blood Pressure : / mmHG Vent. Rate : 067 BPM Atrial Rate : 067 BPM P-R Int : 172 ms QRS Dur : 084 ms QT Int : 454 ms P-R-T Axes : 046 051 044 degrees QTc Int : 479 ms Normal sinus rhythm Low voltage QRS Borderline ECG When compared with ECG of 23-FEB-2023 13:14, No significant change was found Referred By: Julio Cesar Dejesus Electronically Signed By:Andriy Mahan
--- NOTE | 2023-07-01 04:27 | PC.NURSE ---
Pt appears to be sleeping at this time, no apparent distress, equal, non labored respirations. 1:1 sitter at bedside.
[2023-07-01 05:39] VITALS: BP 117/77; PULSE 68; RESP 16; O2SAT 92
[2023-07-01] MEDS: Omeprazole 40 MG CAPSULE.DR PO (05:47)
[2023-07-01] MEDS: Buprenorphine/Naloxone 8/2 mg FILM 1 FILM SUBLINGUAL ×2 (05:47→18:42)
--- NOTE | 2023-07-01 05:55 | PC.NURSE ---
Addendum entered by Laurie Ralph 07/01/23 06:00: Pt denies SI/HI/AH/VH, reports feeling safe while here. 1:1 sitter at bedside. Original Note: Pt awake, ambulated to BR independently, Pt requesting suboxone at this time, and reporting nausea. Pt medicated per AUG.
[2023-07-01] MEDS: clonazePAM 1 MG TABLET 2 MG PO ×2 (06:21→14:07)
[2023-07-01 06:26] VITALS: BP 113/54; PULSE 70; RESP 16; TEMP 36.7; O2SAT 97
--- NOTE | 2023-07-01 06:36 | PC.NURSE ---
Pt belongings in locker #12.
[2023-07-01] MEDS: FLUoxetine HCl 20 MG CAPSULE 80 MG PO (08:24)
[2023-07-01] MEDS: Gabapentin 400 MG CAPSULE 800 MG PO ×3 (08:25→21:08)
[2023-07-01] MEDS: busPIRone HCl 10 MG TABLET 30 MG PO ×2 (08:25→21:08)
[2023-07-01 08:49] LABS: COVID-19 Test Negative (Negative); IDNOW Serial# 9DB6401D
[2023-07-01] MEDS: Fluticasone Propionate Nasal 16 GM SPRAY 2 SPRAY NOSTRIL-B (11:31)
[2023-07-01] MEDS: QUEtiapine Fumarate 50 MG TABLET PO (11:35)
[2023-07-01] MEDS: Ondansetron ODT 4 MG TAB.RAPDIS TRANSLINGU (14:02)
--- NOTE | 2023-07-01 19:08 | PHA.MEDREC ---
Pharmacy Consult ? Medication Reconciliation Pharmacy has reviewed the medication reconciliation completed by marlene.
[2023-07-01] MEDS: Acetaminophen 325 MG TABLET 975 MG PO (19:11)
--- NOTE | 2023-07-01 19:22 | PC.NURSE ---
Assumed care of pt. Pt lying on stretcher no acute distress at this time. Pt calm and cooperative, answering questions appropriately, no acute medical or behavioral concerns at this time. Pt is c/o headache, sts has had it for several hours, medicated per orders. Plan for night mediations as ordered, and continuing plan of care.
[2023-07-01] MEDS: Zolpidem Tartrate 5 MG TABLET PO (21:07)
[2023-07-02 00:32] VITALS: BP 101/64; PULSE 68; RESP 16; O2SAT 94
[2023-07-02] MEDS: clonazePAM 1 MG TABLET 2 MG PO (02:24)
--- NOTE | 2023-07-02 03:44 | PC.NURSE ---
Pt remains lying on stretcher, eyes closed, respirations even and unlabored, no acute medical or behavioral concerns at this time. Safety observer sitting 1:1 per protocols.
[2023-07-02] MEDS: Omeprazole 40 MG CAPSULE.DR PO (05:36)
[2023-07-02] MEDS: Buprenorphine/Naloxone 8/2 mg FILM 1 FILM SUBLINGUAL ×2 (05:36→17:58)
[2023-07-02] MEDS: FLUoxetine HCl 20 MG CAPSULE 80 MG PO (08:24)
[2023-07-02] MEDS: busPIRone HCl 10 MG TABLET 30 MG PO (08:24)
--- NOTE | 2023-07-02 08:28 | PC.NURSE ---
assumed care of pt at 0700. report taken from YUNIOR Mccarthy. pt sleeping initially but woke up asking sitter at bedside for meds. pt a&o x4, knows the month and year, does not know what day it is. pt tolerated meds well. asking for Klonopin. pt aware that he is not able to take Klonopin until around 1000 this am. pt compliant. pt denies SI milton to t/w. 1:1 sitter at bedside for pt safety. call joyner within pt reach. rr even/unlabored. plan of care ongoing.
[2023-07-02 08:44] VITALS: BP 99/57; PULSE 67; RESP 16; TEMP 36.5; O2SAT 94
--- NOTE | 2023-07-02 12:04 | PC.NURSE ---
pt reports he is starting to feel worse and worse and needs more medication. States that the seroquel did not help
--- NOTE | 2023-07-02 12:07 | PC.NURSE ---
Kayleen CRUZ aware of pts increasing anxiety, order for 2mg Ativan put in at this time
[2023-07-02 12:30] VITALS: PULSE 55; RESP 14; O2SAT 94
--- NOTE | 2023-07-02 13:03 | PC.NURSE ---
report given to RN on M5
[2023-07-02 14:38] VITALS: BP 111/76; PULSE 80; RESP 18; TEMP 36.6; O2SAT 95
[2023-07-02 14:39] VITALS: BMI 38.1
--- NOTE | 2023-07-02 16:04 | PC.ADMIT ---
Tommy arrived to the unit at 1355 on a conditional voluntary, sharps check done by bond writer and male MHC. Tommy reported endorsing anxiety and depression, when asked if he had any thoughts of wanting to hurt self or others stated No, verbalized to seek out staff if thoughts occur. Tommy reported increase depression stated I' wasn't feeling safe at home, he denied AVH. VS obtained.
[2023-07-02 18:00] VITALS: BP 108/67; PULSE 78; TEMP 36.9
[2023-07-03] MEDS: Buprenorphine/Naloxone 8/2 mg FILM 1 FILM SUBLINGUAL ×2 (06:06→17:33)
[2023-07-03 08:15] VITALS: BP 139/86; PULSE 92; RESP 16; TEMP 36.4; O2SAT 98
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
[2023-07-03 19:50] VITALS: BP 133/82; PULSE 86; RESP 16; TEMP 36.6; O2SAT 94
[2023-07-04] MEDS: Buprenorphine/Naloxone 8/2 mg FILM 1 FILM SUBLINGUAL ×2 (06:21→17:52)
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
[2023-07-04 09:15] VITALS: BP 109/79; PULSE 83; TEMP 36.3; O2SAT 92
[2023-07-04 17:14] VITALS: BP 133/89; PULSE 91; RESP 16; TEMP 36.4; O2SAT 96
[2023-07-05] MEDS: Buprenorphine/Naloxone 8/2 mg FILM 1 FILM SUBLINGUAL ×2 (06:12→17:27)
[2023-07-05 08:05] VITALS: BP 121/69; PULSE 98; RESP 18; TEMP 36.9
--- NOTE | 2023-07-05 15:36 | HO.PSYCHPN ---
Subjective Subjective Date of Service: 07/05/23 Reason For Visit: HI/severe anxiety Subjective Notes: Conditional Voluntary Healthcare Proxy: No Guardianship: No Medical Problems Affecting Mental Status: No Interim History: Pt seen, discussed with the team. Pt with anxiety. Team report one episode of incontinence. Overall reports he is starting to feel some relief with low dose Venlafaxine Medication Compliance: Yes Side effects from medications: No Attending Groups: Yes Review of Systems Acute medical concerns: No Medical Review of Systems: unchanged Review of Systems Review of Systems Yes all other systems are reviewed and are negative (denies today) Mental Status Exam Mental Status Exam Patient Appearance: Unkempt Patient Orientation: Person, Place, Time and Situation Level of Consciousness: Alert Patient Behavior: Talkative, Cooperative and Good Eye Contact Mood Description: Depressed and Anxious Affect Description: Anxious Patient Cognition Impaired: No Ability to Follow Directions: Good Speech Pattern: Spontaneous Speech Memory Description: Intact Hallucinations: None Delusions: Not Present Thought Process: Distracted and Rumination Depressive Symptoms: Increased Anxiety Judgement: Fair Diagnostics Vital Signs (24Hr): Vital Signs - 24 hr 07/04/23 17:14 07/05/23 08:05 Temperature 97.6 F 98.4 F Pulse Rate 91 98 Respiratory Rate 16 18 Blood Pressure 133/89 121/69 Pulse Oximetry 96 Oxygen Delivery Method Room Air BMI result Body Mass Index 38.1 Labs 06/29/23 13:53 06/29/23 13:53 Medications Medications Current Medications Acetaminophen (Acetaminophen 325 Mg Tablet) 650 mg PO Q6H PRN PRN Reason: Headache/Pain Mild Scale (1-3) Last Admin: 07/05/23 12:09 Dose: 650 mg Al Hydroxide/Mg Hydroxide (Magnesium Hydrox/Alum Hydrox 30 Ml Oral.Susp) 30 ml PO Q6H PRN PRN Reason: Heartburn/Nausea Buprenorphine/Naloxone (Buprenorphine/Naloxone 8/2 Mg Film) 1 film SUBLINGUAL BID@0600,1800 [facility] Last Admin: 07/05/23 06:12 Dose: 1 film Buspirone HCl (Buspirone Hcl 10 Mg Tablet) 30 mg PO BID [facility] Last Admin: 07/05/23 08:36 Dose: 30 mg Carbamide Peroxide (Carbamide Peroxide 6.5% Otic 15 Ml Drpbtl) 5 drop EAR-LEFT BID PRN PRN Reason: ear wax symptoms Stop: 07/08/23 14:22 Last Admin: 07/05/23 08:38 Dose: 5 drop Clonazepam (Clonazepam 1 Mg Tablet) 1 mg PO QID PRN PRN Reason: Anxiety Last Admin: 07/05/23 12:09 Dose: 1 mg Cyclobenzaprine HCl (Cyclobenzaprine Hcl 10 Mg Tablet) 10 mg PO TID PRN PRN Reason: Muscle Spasm Last Admin: 07/05/23 15:16 Dose: 10 mg Fluticasone Propionate (Fluticasone Propionate Nasal 16 Gm [place]) 2 spray NOSTRIL-B DAILY [facility] Last Admin: 07/05/23 09:27 Dose: 2 spray Gabapentin (Gabapentin 400 Mg Capsule) 800 mg PO TID [facility] Last Admin: 07/05/23 14:32 Dose: 800 mg Hydroxyzine HCl (Hydroxyzine Hcl 25 Mg Tablet) 25 mg PO Q6H PRN PRN Reason: Anxiety Last Admin: 07/05/23 15:16 Dose: 25 mg Lidocaine (Lidocaine 4 % Patch Adh..Patch) 1 patch TRANSDERMA DAILY PRN; Protocol PRN Reason: lower back pain Last Admin: 07/05/23 06:58 Dose: 1 patch Magnesium Hydroxide (Milk Of Magnesia 30 Ml Oral.Susp) 30 ml PO DAILY PRN PRN Reason: Constipation Nicotine (Nicotine 21 Mg Patch.Td24) 21 mg TRANSDERMA DAILY PRN PRN Reason: smoking cessation Last Admin: 07/05/23 06:57 Dose: 21 mg Nicotine Polacrilex (Nicotine Polacrilex 2 Mg Gum) 4 mg BUCCAL Q2H PRN PRN Reason: Nicotine Cravings Nystatin (Nystatin Cream 15 Gm Tube) 1 appl TOPICAL BID [facility]; Protocol Last Admin: 07/05/23 09:28 Dose: 1 appl Olanzapine (Olanzapine 5 Mg Tablet) 5 mg PO TID PRN PRN Reason: agitation Last Admin: 07/03/23 20:34 Dose: 5 mg Olanzapine (Olanzapine 5 Mg Tablet) 5 mg PO BEDTIME [facility] Last Admin: 07/04/23 20:54 Dose: 5 mg Olanzapine (Olanzapine 2.5 Mg Tablet) 2.5 mg PO BID PRN PRN Reason: moderate anxiety Last Admin: 07/05/23 15:16 Dose: 2.5 mg Omeprazole (Omeprazole 40 Mg Capsule.Dr) 40 mg PO DAILY@0630 [facility] Last Admin: 07/05/23 06:12 Dose: 40 mg Ondansetron HCl (Ondansetron Odt 4 Mg Tab.Rapdis) 4 mg TRANSLINGU Q6H PRN PRN Reason: Nausea and Vomiting Last Admin: 07/05/23 12:09 Dose: 4 mg Quetiapine Fumarate (Quetiapine Fumarate 50 Mg Tablet) 50 mg PO BID PRN PRN Reason: Anxiety Last Admin: 07/05/23 08:36 Dose: 50 mg Trazodone HCl (Trazodone Hcl 50 Mg Tablet) 50 mg PO BEDTIME MRX1 PRN PRN Reason: Insomnia Last Admin: 07/04/23 21:47 Dose: 50 mg Venlafaxine HCl (Venlafaxine Hcl Er 37.5 Mg Cap.Er.24h) 37.5 mg PO DAILY [facility] Last Admin: 07/05/23 08:36 Dose: 37.5 mg Zolpidem Tartrate (Zolpidem Tartrate 5 Mg Tablet) 5 mg PO BEDTIME PRN PRN Reason: Insomnia Last Admin: 07/04/23 20:54 Dose: 5 mg Allergies Allergies Allergy/AdvReac Type Severity Reaction Status Date / Time No Known Allergies Allergy Verified 06/29/23 12:53 Assessment & Plan Assessment & Plan (1) MDD (major depressive disorder), recurrent severe, without psychosis: Status: Acute Code(s): F33.2 - Major depressive disorder, recurrent severe without psychotic features (2) Obsessive-compulsive disorder with good or fair insight: Status: Acute Code(s): F42.9 - Obsessive-compulsive disorder, unspecified (3) PINA (generalized anxiety disorder): Status: Acute Code(s): F41.1 - Generalized anxiety disorder (4) Panic disorder: Status: Acute Code(s): F41.0 - Panic disorder [episodic paroxysmal anxiety] (5) Opioid use disorder, moderate, in early remission, on maintenance therapy: Status: Acute Code(s): F11.21 - Opioid dependence, in remission (6) OFELIA (obstructive sleep apnea): Status: Acute Code(s): G47.33 - Obstructive sleep apnea (adult) (pediatric) Plan Patient is a 58 year old male with history of MDD, recurrent, severe, OCD, PINA, alcohol/benzo/opioid use disorder in sustained remission who presents for worsening depression, anxiety and resurgence of OCD symptoms likely in the face of medication changes. Patient reports that after his last admission about a year ago, he was doing overall well, feeling that depression and anxiety and OCD symptoms were all moderately well treated. Patient is very unclear about which occurred 1st but this fall he was taking off Effexor and put on to Prozac. He does not know why this change occurred but He thinks this was a mistake and that he was doing better on the Effexor. To his recollection his mood started to decline after this change was made and has worsened over the past several months. The last few weeks that has worsened still and he has been so depressed he is hardly leaving the house, not bathing, feels overwhelmed with anxiety to the point where he is vomiting every morning, and no longer able to drive and see his grandkids. Patient finds it very hard to sleep, afraid that something bad will happen though cannot say what. Patient's OCD symptoms returned and he has been contain the worried that he left a cigarette burning summary the house, going to check, worried he is going to back over someone with his car and constantly checking... Patient said he felt so anxious and angry that he wanted to punch someone though he denies any plan or intent to act upon this. Patient has remained sober. No manic symptoms. Wants to get back on Effexor. Impression/plan: Patient seem to get significant relief from from combination of Effexor and Abilify in the past. He is not sure why Effexor was discontinued and Prozac started but it to the best of his knowledge this change is what caused depression/anxiety to return. Patient wants to get back on Effexor and agrees to cross titration; health technical writer discussed risks/side effects including serotonin syndrome which patient understands but accepts. Regarding Abilify, although this seem to be helpful last time, patient has considerable trouble sleeping and after discussing medication options agrees to try Zyprexa at bedtime instead of restarting Abilify (reviewed risks/side effects of Zyprexa and regimen which he understands and agrees to). Hospital course: 07/04 slept last night which was helpful; remains very depressed and anxious. Nystatin helping. Agrees to continue with plan. Discussed treatment plan regarding cross titration of Prozac for Effexor with Dr. Arnett who agrees with plan to avoid serotonin syndrome. 07/05 Continue plan. Plan: CV Q 15 minute checks Discontinue Prozac (patient has been on 80 mg for several months) Continue Effexor 37.5 mg daily; will titrate SLOWLY at first, mindful of serotonin syndrome given Prozac's long half-life Continue Zyprexa 5 mg q.h.s.(started on admission) Continue clonazepam 1 mg q.i.d.(changed from 2 mg b.i.d. in the community) continue Ambien but make it a p.r.n. Continue Suboxone Continue gabapentin 800 mg t.i.d. Continue omeprazole continue BuSpar 30 mg b.i.d. Start nystatin b.i.d. for right axillary area due to likely fungal infection Will try to seek collateral from patient's outpatient provider Matheus Hughes Informed Consent: understands Reason for continued inpatient stay Substantial Risk for: rapid decompensation Time Spent With Patient Time: Total time managing care of this patient today ____ minutes.
[2023-07-05 18:00] VITALS: BP 125/85; PULSE 92; RESP 18; TEMP 36.7; O2SAT 93
[2023-07-06] MEDS: Buprenorphine/Naloxone 8/2 mg FILM 1 FILM SUBLINGUAL ×2 (06:14→17:37)
[2023-07-06 08:45] VITALS: BP 129/84; PULSE 91; RESP 18; TEMP 36.8; O2SAT 93
[2023-07-06 18:00] VITALS: BP 131/80; PULSE 90; RESP 18; TEMP 36.7; O2SAT 95
--- NOTE | 2023-07-06 19:25 | HO.PSYCHPN ---
Subjective Subjective Date of Service: 07/06/23 Reason For Visit: HI/severe anxiety Interim History: Pt seen, reviewed with team. Discussed lower back pain today and level of discomfort. XRays ordered. Reports no med SE Finds Flexeril helpful for pain/spasm relief. Radiology results are pending. Medication Compliance: Yes Side effects from medications: No Attending Groups: Yes Review of Systems Acute medical concerns: No Review of Systems Review of Systems Back pain Mental Status Exam Mental Status Exam Patient Appearance: Unkempt Patient Orientation: Person, Place, Time and Situation Level of Consciousness: Alert Patient Behavior: Talkative, Cooperative and Good Eye Contact Mood Description: Depressed and Anxious Affect Description: Anxious Patient Cognition Impaired: No Ability to Follow Directions: Good Speech Pattern: Spontaneous Speech Memory Description: Intact Hallucinations: None Delusions: Not Present Thought Process: Distracted and Rumination Depressive Symptoms: Increased Anxiety Judgement: Fair Diagnostics Vital Signs (24Hr): BMI result Body Mass Index 38.1 Labs 06/29/23 13:53 06/29/23 13:53 Imaging Radiology Impressions: ITS Impressions Lumbar Spine X-Ray 07/06/23 11:07 IMPRESSION: Severe degenerative disc disease at L2-L3, L3-L4, and L4-L5. Medications Medications Current Medications Acetaminophen (Acetaminophen 325 Mg Tablet) 650 mg PO Q6H PRN PRN Reason: Headache/Pain Mild Scale (1-3) Last Admin: 07/06/23 09:39 Dose: 650 mg Al Hydroxide/Mg Hydroxide (Magnesium Hydrox/Alum Hydrox 30 Ml Oral.Susp) 30 ml PO Q6H PRN PRN Reason: Heartburn/Nausea Buprenorphine/Naloxone (Buprenorphine/Naloxone 8/2 Mg Film) 1 film SUBLINGUAL BID@0600,1800 [facility] Last Admin: 07/06/23 17:37 Dose: 1 film Buspirone HCl (Buspirone Hcl 10 Mg Tablet) 30 mg PO BID [facility] Last Admin: 07/06/23 08:29 Dose: 30 mg Carbamide Peroxide (Carbamide Peroxide 6.5% Otic 15 Ml Drpbtl) 5 drop EAR-LEFT BID PRN PRN Reason: ear wax symptoms Stop: 07/08/23 14:22 Last Admin: 07/06/23 08:30 Dose: 5 drop Clonazepam (Clonazepam 1 Mg Tablet) 1 mg PO QID PRN PRN Reason: Anxiety Last Admin: 07/06/23 17:01 Dose: 1 mg Cyclobenzaprine HCl (Cyclobenzaprine Hcl 10 Mg Tablet) 10 mg PO TID PRN PRN Reason: Muscle Spasm Last Admin: 07/06/23 17:01 Dose: 10 mg Fluticasone Propionate (Fluticasone Propionate Nasal 16 Gm [place]) 2 spray NOSTRIL-B DAILY [facility] Last Admin: 07/06/23 08:30 Dose: 2 spray Gabapentin (Gabapentin 400 Mg Capsule) 800 mg PO TID [facility] Last Admin: 07/06/23 14:42 Dose: 800 mg Hydroxyzine HCl (Hydroxyzine Hcl 25 Mg Tablet) 25 mg PO Q6H PRN PRN Reason: Anxiety Last Admin: 07/06/23 15:15 Dose: 25 mg Lidocaine (Lidocaine 4 % Patch Adh..Patch) 1 patch TRANSDERMA DAILY PRN; Protocol PRN Reason: lower back pain Last Admin: 07/06/23 08:29 Dose: 1 patch Magnesium Hydroxide (Milk Of Magnesia 30 Ml Oral.Susp) 30 ml PO DAILY PRN PRN Reason: Constipation Nicotine (Nicotine 21 Mg Patch.Td24) 21 mg TRANSDERMA DAILY PRN PRN Reason: smoking cessation Last Admin: 07/06/23 08:29 Dose: 21 mg Nicotine Polacrilex (Nicotine Polacrilex 2 Mg Gum) 4 mg BUCCAL Q2H PRN PRN Reason: Nicotine Cravings Nystatin (Nystatin Cream 15 Gm Tube) 1 appl TOPICAL BID [facility]; Protocol Last Admin: 07/06/23 08:30 Dose: 1 appl Olanzapine (Olanzapine 5 Mg Tablet) 5 mg PO TID PRN PRN Reason: agitation Last Admin: 07/06/23 15:16 Dose: 5 mg Olanzapine (Olanzapine 5 Mg Tablet) 5 mg PO BEDTIME [facility] Last Admin: 07/05/23 20:35 Dose: 5 mg Olanzapine (Olanzapine 2.5 Mg Tablet) 2.5 mg PO BID PRN PRN Reason: moderate anxiety Last Admin: 07/05/23 15:16 Dose: 2.5 mg Omeprazole (Omeprazole 40 Mg Capsule.Dr) 40 mg PO DAILY@0630 [facility] Last Admin: 07/06/23 06:14 Dose: 40 mg Ondansetron HCl (Ondansetron Odt 4 Mg Tab.Rapdis) 4 mg TRANSLINGU Q6H PRN PRN Reason: Nausea and Vomiting Last Admin: 07/05/23 12:09 Dose: 4 mg Quetiapine Fumarate (Quetiapine Fumarate 50 Mg Tablet) 50 mg PO BID PRN PRN Reason: Anxiety Last Admin: 07/05/23 08:36 Dose: 50 mg Trazodone HCl (Trazodone Hcl 50 Mg Tablet) 50 mg PO BEDTIME MRX1 PRN PRN Reason: Insomnia Last Admin: 07/05/23 23:11 Dose: 50 mg Venlafaxine HCl (Venlafaxine Hcl Er 37.5 Mg Cap.Er.24h) 37.5 mg PO DAILY [facility] Last Admin: 07/06/23 08:29 Dose: 37.5 mg Zolpidem Tartrate (Zolpidem Tartrate 5 Mg Tablet) 5 mg PO BEDTIME PRN PRN Reason: Insomnia Last Admin: 07/05/23 20:33 Dose: 5 mg Allergies Allergies Allergy/AdvReac Type Severity Reaction Status Date / Time No Known Allergies Allergy Verified 06/29/23 12:53 Assessment & Plan Assessment & Plan (1) MDD (major depressive disorder), recurrent severe, without psychosis: Status: Acute Code(s): F33.2 - Major depressive disorder, recurrent severe without psychotic features (2) Obsessive-compulsive disorder with good or fair insight: Status: Acute Code(s): F42.9 - Obsessive-compulsive disorder, unspecified (3) PINA (generalized anxiety disorder): Status: Acute Code(s): F41.1 - Generalized anxiety disorder (4) Panic disorder: Status: Acute Code(s): F41.0 - Panic disorder [episodic paroxysmal anxiety] (5) Opioid use disorder, moderate, in early remission, on maintenance therapy: Status: Acute Code(s): F11.21 - Opioid dependence, in remission (6) OFELIA (obstructive sleep apnea): Status: Acute Code(s): G47.33 - Obstructive sleep apnea (adult) (pediatric) Plan Patient is a 58 year old male with history of MDD, recurrent, severe, OCD, PINA, alcohol/benzo/opioid use disorder in sustained remission who presents for worsening depression, anxiety and resurgence of OCD symptoms likely in the face of medication changes. Patient reports that after his last admission about a year ago, he was doing overall well, feeling that depression and anxiety and OCD symptoms were all moderately well treated. Patient is very unclear about which occurred 1st but this fall he was taking off Effexor and put on to Prozac. He does not know why this change occurred but He thinks this was a mistake and that he was doing better on the Effexor. To his recollection his mood started to decline after this change was made and has worsened over the past several months. The last few weeks that has worsened still and he has been so depressed he is hardly leaving the house, not bathing, feels overwhelmed with anxiety to the point where he is vomiting every morning, and no longer able to drive and see his grandkids. Patient finds it very hard to sleep, afraid that something bad will happen though cannot say what. Patient's OCD symptoms returned and he has been contain the worried that he left a cigarette burning summary the house, going to check, worried he is going to back over someone with his car and constantly checking... Patient said he felt so anxious and angry that he wanted to punch someone though he denies any plan or intent to act upon this. Patient has remained sober. No manic symptoms. Wants to get back on Effexor. Impression/plan: Patient seem to get significant relief from from combination of Effexor and Abilify in the past. He is not sure why Effexor was discontinued and Prozac started but it to the best of his knowledge this change is what caused depression/anxiety to return. Patient wants to get back on Effexor and agrees to cross titration; selling underwriter discussed risks/side effects including serotonin syndrome which patient understands but accepts. Regarding Abilify, although this seem to be helpful last time, patient has considerable trouble sleeping and after discussing medication options agrees to try Zyprexa at bedtime instead of restarting Abilify (reviewed risks/side effects of Zyprexa and regimen which he understands and agrees to). Hospital course: 07/04 slept last night which was helpful; remains very depressed and anxious. Nystatin helping. Agrees to continue with plan. Discussed treatment plan regarding cross titration of Prozac for Effexor with Dr. Arnett who agrees with plan to avoid serotonin syndrome 07/06 LS Spine Flexeril trial for pain/spasm Plan: CV Q 15 minute checks Discontinue Prozac (patient has been on 80 mg for several months) Continue Effexor 37.5 mg daily; will titrate SLOWLY at first, mindful of serotonin syndrome given Prozac's long half-life Continue Zyprexa 5 mg q.h.s.(started on admission) Continue clonazepam 1 mg q.i.d.(changed from 2 mg b.i.d. in the community) continue Ambien but make it a p.r.n. Continue Suboxone Continue gabapentin 800 mg t.i.d. Continue omeprazole continue BuSpar 30 mg b.i.d. Start nystatin b.i.d. for right axillary area due to likely fungal infection Will try to seek collateral from patient's outpatient provider Matheus Hughes Patient educated on: medication risk/benefits and therapeutic strategies Informed Consent: understands Reason for continued inpatient stay Substantial Risk for: rapid decompensation Time Spent With Patient Time: Total time managing care of this patient today ____ minutes.
[2023-07-07] MEDS: Buprenorphine/Naloxone 8/2 mg FILM 1 FILM SUBLINGUAL ×2 (06:20→18:34)
--- NOTE | 2023-07-07 07:42 | HO.PSYCHPN ---
Subjective Subjective Date of Service: 07/07/23 Reason For Visit: HI/severe anxiety Interim History: met with patient; discussed with team feels like going in right direction....more energy, not so negative, i would just worry a lot and i'm not as much as i was OCD stuff has been really good... not having intrusive thoughts using coping skills like breathing Discussed physical ailment. Patient complains of chronic lower back pain; says it comes and goes, hurt for a week or so and then resolves on its own but feels worse recently; describes what sounds like sciatica; reviewed x-ray and patient said he will follow up with PCP. Patient then reports right calf became suddenly swollen, from the knee down, starting last week right before admission; he says at home, was laying down for hours and hours, most of the day and night, not moving much due to depression; reports some pain in right calf. Patient has been on current dose of gabapentin for about a year . On exam, patients right calf edematous, some mild pain on palpation; left calf also edematous but much less so Ordered ultrasound Mental Status Exam Mental Status Exam Narrative: Pt is alert and oriented; behavior is cooperative, calm, friendly; patient is not in distress; dressed in casual attire, unkempt but with adequate hygiene; mood is described as better...? Heading in the right direction and affect more calm, brighter; eye contact appropriate; Speech is normal rate, volume and prosody; no psychomotor retardation present; thought process is organized and goal directed; Thought content is on lower back pain, swollen calf; otherwise pertinent to relevant topics and without any delusional content, paranoid ideations or grandiosity; denies any SI/HI. There is no evidence of perceptual disturbance. Patients insight and judgment fair Diagnostics Vital Signs (24Hr): Vital Signs - 24 hr 07/06/23 08:45 07/06/23 18:00 Temperature 98.3 F 98.1 F Pulse Rate 91 90 Respiratory Rate 18 18 Blood Pressure 129/84 131/80 Pulse Oximetry 93 95 Oxygen Delivery Method Room Air Room Air BMI result Body Mass Index 38.1 Labs 07/07/23 18:23 06/29/23 13:53 Imaging Radiology Impressions: ITS Impressions Lumbar Spine X-Ray 07/06/23 11:07 IMPRESSION: Severe degenerative disc disease at L2-L3, L3-L4, and L4-L5. Medications Medications Current Medications Acetaminophen (Acetaminophen 325 Mg Tablet) 650 mg PO Q6H PRN PRN Reason: Headache/Pain Mild Scale (1-3) Last Admin: 07/07/23 01:21 Dose: 650 mg Al Hydroxide/Mg Hydroxide (Magnesium Hydrox/Alum Hydrox 30 Ml Oral.Susp) 30 ml PO Q6H PRN PRN Reason: Heartburn/Nausea Buprenorphine/Naloxone (Buprenorphine/Naloxone 8/2 Mg Film) 1 film SUBLINGUAL BID@0600,1800 [facility] Last Admin: 07/07/23 06:20 Dose: 1 film Buspirone HCl (Buspirone Hcl 10 Mg Tablet) 30 mg PO BID [facility] Last Admin: 07/06/23 20:03 Dose: 30 mg Carbamide Peroxide (Carbamide Peroxide 6.5% Otic 15 Ml Drpbtl) 5 drop EAR-LEFT BID PRN PRN Reason: ear wax symptoms Stop: 07/08/23 14:22 Last Admin: 07/06/23 08:30 Dose: 5 drop Clonazepam (Clonazepam 1 Mg Tablet) 1 mg PO QID PRN PRN Reason: Anxiety Last Admin: 07/07/23 01:20 Dose: 1 mg Fluticasone Propionate (Fluticasone Propionate Nasal 16 Gm [place]) 2 spray NOSTRIL-B DAILY [facility] Last Admin: 07/06/23 08:30 Dose: 2 spray Gabapentin (Gabapentin 400 Mg Capsule) 800 mg PO TID [facility] Last Admin: 07/06/23 20:03 Dose: 800 mg Hydroxyzine HCl (Hydroxyzine Hcl 25 Mg Tablet) 25 mg PO Q6H PRN PRN Reason: Anxiety Last Admin: 07/07/23 02:01 Dose: 25 mg Ibuprofen (Ibuprofen 800 Mg Tablet) 800 mg PO Q8H PRN PRN Reason: Pain, Mild (Pain Scale 1-3) Last Admin: 07/06/23 23:03 Dose: 800 mg Lidocaine (Lidocaine 4 % Patch Adh..Patch) 1 patch TRANSDERMA DAILY PRN; Protocol PRN Reason: lower back pain Last Admin: 07/06/23 08:29 Dose: 1 patch Magnesium Hydroxide (Milk Of Magnesia 30 Ml Oral.Susp) 30 ml PO DAILY PRN PRN Reason: Constipation Nicotine (Nicotine 21 Mg Patch.Td24) 21 mg TRANSDERMA DAILY PRN PRN Reason: smoking cessation Last Admin: 07/06/23 08:29 Dose: 21 mg Nicotine Polacrilex (Nicotine Polacrilex 2 Mg Gum) 4 mg BUCCAL Q2H PRN PRN Reason: Nicotine Cravings Nystatin (Nystatin Cream 15 Gm Tube) 1 appl TOPICAL BID [facility]; Protocol Last Admin: 07/07/23 01:10 Dose: Not Given Olanzapine (Olanzapine 5 Mg Tablet) 5 mg PO TID PRN PRN Reason: agitation Last Admin: 07/06/23 15:16 Dose: 5 mg Olanzapine (Olanzapine 5 Mg Tablet) 5 mg PO BEDTIME [facility] Last Admin: 07/06/23 20:03 Dose: 5 mg Olanzapine (Olanzapine 2.5 Mg Tablet) 2.5 mg PO BID PRN PRN Reason: moderate anxiety Last Admin: 07/07/23 02:01 Dose: 2.5 mg Omeprazole (Omeprazole 40 Mg Capsule.Dr) 40 mg PO DAILY@0630 [facility] Last Admin: 07/07/23 06:42 Dose: 40 mg Ondansetron HCl (Ondansetron Odt 4 Mg Tab.Rapdis) 4 mg TRANSLINGU Q6H PRN PRN Reason: Nausea and Vomiting Last Admin: 07/05/23 12:09 Dose: 4 mg Quetiapine Fumarate (Quetiapine Fumarate 50 Mg Tablet) 50 mg PO BID PRN PRN Reason: Anxiety Last Admin: 07/06/23 21:54 Dose: 50 mg Trazodone HCl (Trazodone Hcl 50 Mg Tablet) 50 mg PO BEDTIME MRX1 PRN PRN Reason: Insomnia Last Admin: 07/07/23 02:01 Dose: 50 mg Venlafaxine HCl (Venlafaxine Hcl Er 37.5 Mg Cap.Er.24h) 37.5 mg PO DAILY [facility] Last Admin: 07/06/23 08:29 Dose: 37.5 mg Zolpidem Tartrate (Zolpidem Tartrate 5 Mg Tablet) 5 mg PO BEDTIME PRN PRN Reason: Insomnia Last Admin: 07/06/23 20:03 Dose: 5 mg Allergies Allergies Allergy/AdvReac Type Severity Reaction Status Date / Time No Known Allergies Allergy Verified 06/29/23 12:53 Assessment & Plan Assessment & Plan (1) MDD (major depressive disorder), recurrent severe, without psychosis: Status: Acute Code(s): F33.2 - Major depressive disorder, recurrent severe without psychotic features (2) Obsessive-compulsive disorder with good or fair insight: Status: Acute Code(s): F42.9 - Obsessive-compulsive disorder, unspecified (3) PINA (generalized anxiety disorder): Status: Acute Code(s): F41.1 - Generalized anxiety disorder (4) Panic disorder: Status: Acute Code(s): F41.0 - Panic disorder [episodic paroxysmal anxiety] (5) Opioid use disorder, moderate, in early remission, on maintenance therapy: Status: Acute Code(s): F11.21 - Opioid dependence, in remission (6) OFELIA (obstructive sleep apnea): Status: Acute Code(s): G47.33 - Obstructive sleep apnea (adult) (pediatric) Plan Patient is a 58 year old male with history of MDD, recurrent, severe, OCD, PINA, alcohol/benzo/opioid use disorder in sustained remission who presents for worsening depression, anxiety and resurgence of OCD symptoms likely in the face of medication changes. Patient reports that after his last admission about a year ago, he was doing overall well, feeling that depression and anxiety and OCD symptoms were all moderately well treated. Patient is very unclear about which occurred 1st but this fall he was taking off Effexor and put on to Prozac. He does not know why this change occurred but He thinks this was a mistake and that he was doing better on the Effexor. To his recollection his mood started to decline after this change was made and has worsened over the past several months. The last few weeks that has worsened still and he has been so depressed he is hardly leaving the house, not bathing, feels overwhelmed with anxiety to the point where he is vomiting every morning, and no longer able to drive and see his grandkids. Patient finds it very hard to sleep, afraid that something bad will happen though cannot say what. Patient's OCD symptoms returned and he has been contain the worried that he left a cigarette burning summary the house, going to check, worried he is going to back over someone with his car and constantly checking... Patient said he felt so anxious and angry that he wanted to punch someone though he denies any plan or intent to act upon this. Patient has remained sober. No manic symptoms. Wants to get back on Effexor. Impression/plan: Patient seem to get significant relief from from combination of Effexor and Abilify in the past. He is not sure why Effexor was discontinued and Prozac started but it to the best of his knowledge this change is what caused depression/anxiety to return. Patient wants to get back on Effexor and agrees to cross titration; repairer typewriter discussed risks/side effects including serotonin syndrome which patient understands but accepts. Regarding Abilify, although this seem to be helpful last time, patient has considerable trouble sleeping and after discussing medication options agrees to try Zyprexa at bedtime instead of restarting Abilify (reviewed risks/side effects of Zyprexa and regimen which he understands and agrees to). Hospital course: 07/04 slept last night which was helpful; remains very depressed and anxious. Nystatin helping. Agrees to continue with plan. Discussed treatment plan regarding cross titration of Prozac for Effexor with Dr. Arnett who agrees with plan to avoid serotonin syndrome 07/06 LS Spine; Flexeril trial for pain/spasm Lumbar XRay, IMPRESSION: Severe degenerative disc disease at L2-L3, L3-L4, and L4-L5. 07/07 reviewed literature and Prozac 1/2 life 4-6 days, bringing remaining Prozac level equivalent to about 40mg making it safe to increase Effexor reports mood feels like going in right direction....more energy, not so negative, i would just worry a lot and i'm not as much as i was OCD stuff has been really good... not having intrusive thoughts using coping skills like breathing Discussed physical ailment. Patient complains of chronic lower back pain; says it comes and goes, hurt for a week or so and then resolves on its own but feels worse recently; describes what sounds like sciatica; reviewed x-ray and patient said he will follow up with PCP. Patient then reports right calf became suddenly swollen, from the knee down, starting last week right before admission; he says at home, was laying down for hours and hours, most of the day and night, not moving much due to depression; reports some pain in right calf. Patient has been on current dose of gabapentin for about a year On exam, patients right calf edematous, some mild pain on palpation; left calf also edematous but much less so Ordered ultrasound. Call to discuss results with radiologist Dr. Haney who reports that due to excess edematous fluid she was unable to visualize distal posterior tibial and peroneal veins (the ones in question) which she says is not uncommon; further workup requires risk stratification. Account General Manager discussed case with Dr. Hampton and hospitalist NANCY Estrella to help further assess need for vascular consult or anticoagulation, especially in light of history of GI bleed. 07/07/23 US/US venous duplex LE BI IMPRESSION: No DVT demonstrated in right and left lower extremities from the groin to the knee. The posterior tibial and peroneal veins were not seen bilaterally. Plan: CV Q 15 minute checks Discontinue Prozac (patient has been on 80 mg for several months) INCREASE TO Effexor ER 75mg daily; will titrate SLOWLY at first, mindful of serotonin syndrome given Prozac's long half-life Continue Zyprexa 5 mg q.h.s.(started on admission) Continue clonazepam 1 mg q.i.d.(changed from 2 mg b.i.d. in the community) continue Ambien but make it a p.r.n. Continue Suboxone Continue gabapentin 800 mg t.i.d. Continue omeprazole continue BuSpar 30 mg b.i.d. Start nystatin b.i.d. for right axillary area due to likely fungal infection Will try to seek collateral from patient's outpatient provider Matheus Hughes Patient educated on: diagnosis, medication risk/benefits and medical condition Informed Consent: understands Reason for continued inpatient stay Substantial Risk for: rapid decompensation Time Spent With Patient Time: Total time managing care of this patient today ____ minutes.
[2023-07-07 08:10] VITALS: BP 128/77; PULSE 99; RESP 18; TEMP 35.9; O2SAT 94
[2023-07-07] MEDS: Cyclobenzaprine HCl 10 MG TABLET PO ×3 (11:03→20:58)
[2023-07-07 15:50] VITALS: BP 133/90; PULSE 91; RESP 16; TEMP 37; O2SAT 96
--- NOTE | 2023-07-07 16:30 | P.CONHOSP_ITS ---
History of Present Illness Data of Consult Service Date: 07/07/23 Requesting physician: Lamin Gonzalez Primary Care Provider: Joanne Chapman CNP HPI Reason for consult: RLE swelling 58-year-old male with history of obstructive sleep apnea, lumbar degenerative disc disease with radiculopathy, history of upper GI bleed, mood disorder, opioid dependence on Suboxone, who is a current everyday smoker admitted to Psychiatry with consult placed to hospitalist service for evaluation of right lower extremity swelling with question of DVT. The patient reports that about 6 days days ago began experiencing swelling in the bilateral lower extremities, greater in the right. There is also pain in the right calf. No palpitations, shortness of breath, near-syncope, chest pain. He has been very depressed over the last few months and has been relatively sedentary though not entirely bed- bound. No known history of cancer. No history of DVT/PE. Not on any blood thinners. Venous duplex of the bilateral lower extremities was obtained earlier by Psychiatry with no DVT noted from the groin to the knee but unable to visualize veins in the lower legs bilaterally. No known clotting disorders. He has been on gabapenting and seroquel for some time and was recently started on olanzepine, after the onset of swelling. Review of Systems 2 Review of Systems: Yes all other systems are reviewed and are negative PMFSH Medical History GI bleed MDD (major depressive disorder), recurrent severe, without psychosis OFELIA (obstructive sleep apnea) Obsessive-compulsive disorder with good or fair insight Social History Household Members: Other Household Members Other:: Roommate Housing: Condominium Do you presently have visiting nurse or other home services: No Patient Tobacco Use Status: Current everyday Tobacco user Tobacco use type: Cigarette Cigarette Packs Per Day: 1 Cigarettes Per Day: 20.0 Years Smoked: 20 Smoked in Last 30 Days: Yes e-Cigarette/Vaping Use: Never Used Patient Interested in Nicotine Replacement: Yes Second Hand Smoke Exposure: Yes Use of substances other than those prescribed or required for medical reasons: Yes Substance Use Type: Marijuana Substance Use Frequency: Weekly Last Used Substance: Days (ago) Currently Displaying Signs/Symptoms of Drug Intoxication Withdrawal: No Any prior treatment program specific to substance use: No Have you been hit, kicked, punched, or otherwise hurt by someone within the past year? If so, by whom?: No Do you feel safe in your current relationship?: No Current Relationship Is there a partner from a previous relationship who is making you feel unsafe now?: No Are you made to feel afraid or neglected: No Spiritual Healthcare Practices: [employer] Healthcare Practices: [employer] Advance Directives: No Advance Directives Information Provided: Yes Do you have thoughts of harming others: None Do you have a plan to hurt others: No Plan Recently lost weight without trying: No How much weight loss: Not applicable Eating poorly because of decreased appetite: No Nutrition screen score: 0 Nutrition Risks: No Nutritional Risk Poor oral hygiene: Yes service: No Sexual orientation: Straight/Heterosexual Meds Allergies Allergy/AdvReac Type Severity Reaction Status Date / Time No Known Allergies Allergy Verified 06/29/23 12:53 Active Medications: Current Medications Acetaminophen (Acetaminophen 325 Mg Tablet) 650 mg PO Q6H PRN PRN Reason: Headache/Pain Mild Scale (1-3) Last Admin: 07/07/23 11:03 Dose: 650 mg Al Hydroxide/Mg Hydroxide (Magnesium Hydrox/Alum Hydrox 30 Ml Oral.Susp) 30 ml PO Q6H PRN PRN Reason: Heartburn/Nausea Buprenorphine/Naloxone (Buprenorphine/Naloxone 8/2 Mg Film) 1 film SUBLINGUAL BID@0600,1800 [facility] Last Admin: 07/07/23 06:20 Dose: 1 film Buspirone HCl (Buspirone Hcl 10 Mg Tablet) 30 mg PO BID [facility] Last Admin: 07/07/23 08:45 Dose: 30 mg Carbamide Peroxide (Carbamide Peroxide 6.5% Otic 15 Ml Drpbtl) 5 drop EAR-LEFT BID PRN PRN Reason: ear wax symptoms Stop: 07/08/23 14:22 Last Admin: 07/07/23 08:35 Dose: 5 drop Clonazepam (Clonazepam 1 Mg Tablet) 1 mg PO QID PRN PRN Reason: Anxiety Last Admin: 07/07/23 13:30 Dose: 1 mg Cyclobenzaprine HCl (Cyclobenzaprine Hcl 10 Mg Tablet) 10 mg PO Q4H PRN PRN Reason: muscle pain Last Admin: 07/07/23 11:03 Dose: 10 mg Fluticasone Propionate (Fluticasone Propionate Nasal 16 Gm [place]) 2 spray NOSTRIL-B DAILY [facility] Last Admin: 07/07/23 08:35 Dose: 2 spray Gabapentin (Gabapentin 400 Mg Capsule) 800 mg PO TID [facility] Last Admin: 07/07/23 14:53 Dose: 800 mg Hydroxyzine HCl (Hydroxyzine Hcl 25 Mg Tablet) 25 mg PO Q6H PRN PRN Reason: Anxiety Last Admin: 07/07/23 02:01 Dose: 25 mg Lidocaine (Lidocaine 4 % Patch Adh..Patch) 1 patch TRANSDERMA DAILY PRN; Protocol PRN Reason: lower back pain Last Admin: 07/07/23 08:32 Dose: 1 patch Magnesium Hydroxide (Milk Of Magnesia 30 Ml Oral.Susp) 30 ml PO DAILY PRN PRN Reason: Constipation Nicotine (Nicotine 21 Mg Patch.Td24) 21 mg TRANSDERMA DAILY PRN PRN Reason: smoking cessation Last Admin: 07/07/23 08:32 Dose: 21 mg Nicotine Polacrilex (Nicotine Polacrilex 2 Mg Gum) 4 mg BUCCAL Q2H PRN PRN Reason: Nicotine Cravings Nystatin (Nystatin Cream 15 Gm Tube) 1 appl TOPICAL BID [facility]; Protocol Last Admin: 07/07/23 08:35 Dose: 1 appl Olanzapine (Olanzapine 5 Mg Tablet) 5 mg PO TID PRN PRN Reason: agitation Last Admin: 07/06/23 15:16 Dose: 5 mg Olanzapine (Olanzapine 5 Mg Tablet) 5 mg PO BEDTIME [facility] Last Admin: 07/06/23 20:03 Dose: 5 mg Olanzapine (Olanzapine 2.5 Mg Tablet) 2.5 mg PO BID PRN PRN Reason: moderate anxiety Last Admin: 07/07/23 02:01 Dose: 2.5 mg Omeprazole (Omeprazole 40 Mg Capsule.Dr) 40 mg PO DAILY@0630 [facility] Last Admin: 07/07/23 06:42 Dose: 40 mg Ondansetron HCl (Ondansetron Odt 4 Mg Tab.Rapdis) 4 mg TRANSLINGU Q6H PRN PRN Reason: Nausea and Vomiting Last Admin: 07/05/23 12:09 Dose: 4 mg Quetiapine Fumarate (Quetiapine Fumarate 50 Mg Tablet) 50 mg PO BID PRN PRN Reason: Anxiety Last Admin: 07/07/23 13:30 Dose: 50 mg Trazodone HCl (Trazodone Hcl 50 Mg Tablet) 50 mg PO BEDTIME MRX1 PRN PRN Reason: Insomnia Last Admin: 07/07/23 02:01 Dose: 50 mg Venlafaxine HCl (Venlafaxine Hcl Er 75 Mg Cap.Er.24h) 75 mg PO DAILY [facility] Last Admin: 07/07/23 08:46 Dose: 75 mg Zolpidem Tartrate (Zolpidem Tartrate 5 Mg Tablet) 5 mg PO BEDTIME PRN PRN Reason: Insomnia Last Admin: 07/06/23 20:03 Dose: 5 mg Home Medications Medication Instructions Recorded Confirmed Last Taken Type clonazepam 2 mg tablet 2 mg PO BID PRN Anxiety 06/29/23 06/29/23 Unknown History fluoxetine 40 mg capsule 80 mg PO QAM 06/29/23 06/29/23 Unknown History gabapentin 800 mg tablet 800 mg PO TID 06/29/23 06/29/23 Unknown History omeprazole 40 mg capsule,delayed 40 mg PO DAILY 06/29/23 06/29/23 Unknown History release quetiapine 50 mg tablet 50 mg PO BID PRN Anxiety 06/29/23 06/29/23 Unknown History zolpidem 12.5 mg tablet,extended 12.5 mg PO BEDTIME 06/29/23 06/29/23 Unknown History release,multiphase buprenorphine 8 mg-naloxone 2 mg 0 mg sublingual 06/30/23 Unknown History sublingual film Physical Exam 2 Vital Signs and Narrative: Vital Signs: Last Vital Signs Temp 98.6 F 07/07/23 15:50 Pulse 91 07/07/23 15:50 Resp 16 07/07/23 15:50 BP 133/90 H 07/07/23 15:50 Pulse Ox 96 07/07/23 15:50 O2 Del Method Room Air 07/07/23 15:50 BMI result Body Mass Index 38.1 Constitutional - Awake and Alert, No apparent distress Eyes - PERRLA, EOMI Cardiovascular - S1S2, RRR, No edema Respiratory - Normal lung expansion, Normal respiratory effort, No respiratory distress, CTA bilaterally Extremities - +BLE swelling, R>L. R calf about 4-5cm larger than L with Right calf ttp. Telangiectasias noted but no varicose veins Skin - Warm/Dry Neurological - Alert & oriented x3, CN II-XII in tact, 5/5 strength BUE and BLE Psychological - Appropriate affect Results Labs 06/29/23 13:53 06/29/23 13:53 Imaging Radiologist's Impressions: Impressions Venous Duplex 07/07/23 11:29 IMPRESSION: No DVT demonstrated in right and left lower extremities from the groin to the knee. The posterior tibial and peroneal veins were not seen bilaterally. Assessment and Plan (1) Right leg swelling: Status: Acute Plan 58-year-old male with history of obstructive sleep apnea, lumbar degenerative disc disease with radiculopathy, history of upper GI bleed, mood disorder, opioid dependence on Suboxone, who is a current everyday smoker admitted to Psychiatry with consult placed to hospitalist service for evaluation of right lower extremity swelling with question of DVT. Acute RLE swelling -Venous duplex nondiagnostic, unable to compress veins in lower legs thought no DVT noted from groin to knee -4 points using wells criteria- high risk -ddimer likely to be non diagnostic due to severe obesity -Discussed with vascular surgery, initiate eliquis 10mg BID x 7 days, then 5mg BID -Check CBC, coags for baseline labs -Vascular surgery consult Per pt, had hx GI bleed, a tear about 1 year ago at [facility]. Upon review of [facility] records, there is no history in the last 5 years of any GI bleed, including in PCP notes. Called daughter for collateral who denies any known history of GI bleed. She also reports his memory is limited. At this time, do not feel there is a contraindication to anticoagulation. Monitor for evidence of bleeding. Discussed with Dr. Peguero Thank you for allowing me to participate in this consult. Signing off at this time. Please do not hesitate to call for further questions or for any acute medical issues.
[2023-07-07] MEDS: OLANZapine 5 MG TABLET PO ×2 (16:47→20:58)
[2023-07-07] MEDS: clonazePAM 1 MG TABLET PO (18:33)
[2023-07-07 18:55] LABS: MANUAL DIFF FLAG NO
[2023-07-07 18:59] LABS: Basophils Percent Auto 0.4 % (0-2); Eosinophils Absolute Auto 0.2 X10*3/uL (0.0-0.4); Eosinophils Percent Auto 2.7 % (0-4); Hematocrit 42.7 % (42.0-52.0); Imm Gran Abs Auto 0.02 X10*3/uL (0.00-0.03); Imm Gran Pct Auto 0.4 % (0.0-0.4); Lymphocytes Absolute Auto 0.9 X10*3/uL (1.2-4.9); Lymphocytes Percent Auto 16.2 % (20-40); Mean Corpuscular HGB Conc 32.8 g/dl (31.0-36.0); Mean Corpuscular Hemoglobin 29.4 pg (27.0-33.0); Mean Corpuscular Volume 89.7 fL (80.0-98.0); Mean Platelet Volume 12.9 fL (9.4-12.4); Monocytes Absolute Auto 0.6 X10*3/uL (0.1-1.2); Monocytes Percent Auto 10.1 % (2-11); Neutrophils Absolute Auto 3.9 x10*3/uL (2.0-8.3); Neutrophils Percent Auto 70.2 % (45-73); Platelet Count 133 X10*3/uL (160-400); Red Blood Count 4.76 X10*6/uL (4.60-5.80); Red Cell Distribution Width 13.3 % (11.0-16.0); White Blood Count 5.6 X10*3/uL (4.8-10.8)
[2023-07-07 19:28] LABS: Prothrombin Time 11.8 SEC (11.1-13.3)
[2023-07-07 19:31] LABS: Partial Thromboplastin Time 32.7 SEC (26.0-36.4)
[2023-07-07] MEDS: Gabapentin 400 MG CAPSULE 800 MG PO (20:56)
[2023-07-07] MEDS: Apixaban 5 MG TABLET 10 MG PO (20:57)
[2023-07-07] MEDS: busPIRone HCl 10 MG TABLET 30 MG PO (20:57)
[2023-07-07] MEDS: Zolpidem Tartrate 5 MG TABLET PO (20:59)
[2023-07-07] MEDS: Acetaminophen 325 MG TABLET 650 MG PO (21:02)
[2023-07-08] MEDS: hydrOXYzine HCL 25 MG TABLET PO ×3 (03:40→20:54)
[2023-07-08] MEDS: clonazePAM 1 MG TABLET PO ×5 (03:40→20:54)
[2023-07-08] MEDS: Omeprazole 40 MG CAPSULE.DR PO (05:42)
[2023-07-08] MEDS: Buprenorphine/Naloxone 8/2 mg FILM 1 FILM SUBLINGUAL ×2 (05:42→18:39)
[2023-07-08 06:00] VITALS: BP 124/78; PULSE 106; RESP 18; TEMP 36.3; O2SAT 96
[2023-07-08] MEDS: Fluticasone Propionate Nasal 16 GM SPRAY 2 SPRAY NOSTRIL-B (08:21)
[2023-07-08] MEDS: Nicotine Polacrilex 2 MG GUM 4 MG BUCCAL (08:22)
[2023-07-08] MEDS: Nicotine 21 MG PATCH.TD24 TRANSDERMA (08:22)
[2023-07-08] MEDS: busPIRone HCl 10 MG TABLET 30 MG PO ×2 (08:22→20:53)
[2023-07-08] MEDS: Venlafaxine HCl ER 75 MG CAP.ER.24H PO (08:22)
[2023-07-08] MEDS: Gabapentin 400 MG CAPSULE 800 MG PO ×3 (08:23→20:53)
[2023-07-08] MEDS: Lidocaine 4 % Patch ADH..PATCH 1 PATCH TRANSDERMA (08:24)
[2023-07-08] MEDS: QUEtiapine Fumarate 50 MG TABLET PO ×2 (09:03→20:53)
[2023-07-08] MEDS: Acetaminophen 325 MG TABLET 650 MG PO (09:04)
--- NOTE | 2023-07-08 09:36 | P.PNPSI_ITS ---
Subjective Subjective Date of Service: 07/08/23 Reason For Visit: HI/severe anxiety Interim History: Met with patient; discussed with team. Patient continues to report his mood is overall better and he likes the medications he is on; feels that Zyprexa may be helpful and he certainly sleeping better. Customer Management Specialist had discussed case with his outpatient provider Dr. Matheus Hughes and patient agrees with plan to continue with Zyprexa, Effexor titration for now and as an outpatient can consider adding Lamictal; also discussed efficacy of BuSpar and patient is ambivalent whether not it is helpful. Also discussed ECT as a potential option if symptoms continue to breakthrough medication management. Discussed anticoagulation, assessment for DVT, lower back pain. Patient understands these issues, medication regimen, risks and will follow up with PCP on discharge. Mental Status Exam Mental Status Exam Narrative: Pt is alert and oriented; behavior is cooperative, calm, friendly; patient is not in distress; dressed in casual attire, unkempt but with adequate hygiene; mood is described as better...? Heading in the right direction and affect more calm, brighter; eye contact appropriate; Speech is normal rate, volume and prosody; no psychomotor retardation present; thought process is organized and goal directed; Thought content is on lower back pain, swollen calf; otherwise pertinent to relevant topics and without any delusional content, paranoid ideations or grandiosity; denies any SI/HI. There is no evidence of perceptual disturbance. Patients insight and judgment fair Diagnostics Vital Signs (24Hr): Vital Signs - 24 hr 07/07/23 15:50 Temperature 98.6 F Pulse Rate 91 Respiratory Rate 16 Blood Pressure 133/90 H Pulse Oximetry 96 Oxygen Delivery Method Room Air BMI result Body Mass Index 38.1 Labs 07/07/23 18:23 06/29/23 13:53 Labs: Laboratory Results - last 48 hr 07/07/23 18:23 WBC 5.6 RBC 4.76 Hgb 14.0 Hct 42.7 MCV 89.7 MCH 29.4 MCHC 32.8 RDW 13.3 Plt Count 133 L MPV 12.9 H Immature Gran % (Auto) 0.4 Neut % (Auto) 70.2 Lymph % (Auto) 16.2 L [place] % (Auto) 10.1 Eos % (Auto) 2.7 Baso % (Auto) 0.4 Lymph # (Auto) 0.9 L [place] # (Auto) 0.6 Eos # (Auto) 0.2 Baso # (Auto) 0.0 Abs Immat Gran (auto) 0.02 Absolute Neuts (auto) 3.9 Absolute Nucleated RBC 0.000 Nucleated RBC % (auto) 0.0 PT 11.8 INR 1.0 APTT 32.7 Imaging Radiology Impressions: ITS Impressions Lumbar Spine X-Ray 07/06/23 11:07 IMPRESSION: Severe degenerative disc disease at L2-L3, L3-L4, and L4-L5. Venous Duplex 07/07/23 11:29 IMPRESSION: No DVT demonstrated in right and left lower extremities from the groin to the knee. The posterior tibial and peroneal veins were not seen bilaterally. Medications Medications Current Medications Acetaminophen (Acetaminophen 325 Mg Tablet) 650 mg PO Q6H PRN PRN Reason: Headache/Pain Mild Scale (1-3) Last Admin: 07/08/23 09:04 Dose: 650 mg Al Hydroxide/Mg Hydroxide (Magnesium Hydrox/Alum Hydrox 30 Ml Oral.Susp) 30 ml PO Q6H PRN PRN Reason: Heartburn/Nausea Apixaban (Apixaban 5 Mg Tablet) 10 mg PO BID [facility] Stop: 07/14/23 09:01 Last Admin: 07/07/23 20:57 Dose: 10 mg Apixaban (Apixaban 5 Mg Tablet) 5 mg PO BID [facility] Buprenorphine/Naloxone (Buprenorphine/Naloxone 8/2 Mg Film) 1 film SUBLINGUAL BID@0600,1800 [facility] Last Admin: 07/08/23 05:42 Dose: 1 film Buspirone HCl (Buspirone Hcl 10 Mg Tablet) 30 mg PO BID [facility] Last Admin: 07/08/23 08:22 Dose: 30 mg Carbamide Peroxide (Carbamide Peroxide 6.5% Otic 15 Ml Drpbtl) 5 drop EAR-LEFT BID PRN PRN Reason: ear wax symptoms Stop: 07/08/23 14:22 Last Admin: 07/07/23 08:35 Dose: 5 drop Clonazepam (Clonazepam 1 Mg Tablet) 1 mg PO QID PRN PRN Reason: Anxiety Last Admin: 07/08/23 09:03 Dose: 1 mg Cyclobenzaprine HCl (Cyclobenzaprine Hcl 10 Mg Tablet) 10 mg PO Q4H PRN PRN Reason: muscle pain Last Admin: 07/07/23 20:58 Dose: 10 mg Fluticasone Propionate (Fluticasone Propionate Nasal 16 Gm [place]) 2 spray NOSTRIL-B DAILY [facility] Last Admin: 07/08/23 08:21 Dose: 2 spray Gabapentin (Gabapentin 400 Mg Capsule) 800 mg PO TID [facility] Last Admin: 07/08/23 08:23 Dose: 800 mg Hydroxyzine HCl (Hydroxyzine Hcl 25 Mg Tablet) 25 mg PO Q6H PRN PRN Reason: Anxiety Last Admin: 07/08/23 03:40 Dose: 25 mg Lidocaine (Lidocaine 4 % Patch Adh..Patch) 1 patch TRANSDERMA DAILY PRN; Protocol PRN Reason: lower back pain Last Admin: 07/08/23 08:24 Dose: 1 patch Magnesium Hydroxide (Milk Of Magnesia 30 Ml Oral.Susp) 30 ml PO DAILY PRN PRN Reason: Constipation Nicotine (Nicotine 21 Mg Patch.Td24) 21 mg TRANSDERMA DAILY PRN PRN Reason: smoking cessation Last Admin: 07/08/23 08:22 Dose: 21 mg Nicotine Polacrilex (Nicotine Polacrilex 2 Mg Gum) 4 mg BUCCAL Q2H PRN PRN Reason: Nicotine Cravings Last Admin: 07/08/23 08:22 Dose: 4 mg Nystatin (Nystatin Cream 15 Gm Tube) 1 appl TOPICAL BID [facility]; Protocol Last Admin: 07/08/23 06:12 Dose: Not Given Olanzapine (Olanzapine 5 Mg Tablet) 5 mg PO TID PRN PRN Reason: agitation Last Admin: 07/07/23 16:47 Dose: 5 mg Olanzapine (Olanzapine 5 Mg Tablet) 5 mg PO BEDTIME [facility] Last Admin: 07/07/23 20:58 Dose: 5 mg Olanzapine (Olanzapine 2.5 Mg Tablet) 2.5 mg PO BID PRN PRN Reason: moderate anxiety Last Admin: 07/07/23 02:01 Dose: 2.5 mg Omeprazole (Omeprazole 40 Mg Capsule.Dr) 40 mg PO DAILY@0630 [facility] Last Admin: 07/08/23 05:42 Dose: 40 mg Ondansetron HCl (Ondansetron Odt 4 Mg Tab.Rapdis) 4 mg TRANSLINGU Q6H PRN PRN Reason: Nausea and Vomiting Last Admin: 07/05/23 12:09 Dose: 4 mg Quetiapine Fumarate (Quetiapine Fumarate 50 Mg Tablet) 50 mg PO BID PRN PRN Reason: Anxiety Last Admin: 07/08/23 09:03 Dose: 50 mg Trazodone HCl (Trazodone Hcl 50 Mg Tablet) 50 mg PO BEDTIME MRX1 PRN PRN Reason: Insomnia Last Admin: 07/07/23 02:01 Dose: 50 mg Venlafaxine HCl (Venlafaxine Hcl Er 75 Mg Cap.Er.24h) 75 mg PO DAILY [facility] Last Admin: 07/08/23 08:22 Dose: 75 mg Zolpidem Tartrate (Zolpidem Tartrate 5 Mg Tablet) 5 mg PO BEDTIME PRN PRN Reason: Insomnia Last Admin: 07/07/23 20:59 Dose: 5 mg Allergies Allergies Allergy/AdvReac Type Severity Reaction Status Date / Time No Known Allergies Allergy Verified 06/29/23 12:53 Assessment & Plan Assessment & Plan (1) MDD (major depressive disorder), recurrent severe, without psychosis: Status: Acute Code(s): F33.2 - Major depressive disorder, recurrent severe without psychotic features (2) Obsessive-compulsive disorder with good or fair insight: Status: Acute Code(s): F42.9 - Obsessive-compulsive disorder, unspecified (3) PINA (generalized anxiety disorder): Status: Acute Code(s): F41.1 - Generalized anxiety disorder (4) Panic disorder: Status: Acute Code(s): F41.0 - Panic disorder [episodic paroxysmal anxiety] (5) Opioid use disorder, moderate, in early remission, on maintenance therapy: Status: Acute Code(s): F11.21 - Opioid dependence, in remission (6) OFELIA (obstructive sleep apnea): Status: Acute Code(s): G47.33 - Obstructive sleep apnea (adult) (pediatric) (7) Right leg swelling: Status: Acute Code(s): M79.89 - Other specified soft tissue disorders Plan Patient is a 58 year old male with history of MDD, recurrent, severe, OCD, PINA, alcohol/benzo/opioid use disorder in sustained remission who presents for worsening depression, anxiety and resurgence of OCD symptoms likely in the face of medication changes. Patient reports that after his last admission about a year ago, he was doing overall well, feeling that depression and anxiety and OCD symptoms were all moderately well treated. Patient is very unclear about which occurred 1st but this fall he was taking off Effexor and put on to Prozac. He does not know why this change occurred but He thinks this was a mistake and that he was doing better on the Effexor. To his recollection his mood started to decline after this change was made and has worsened over the past several months. The last few weeks that has worsened still and he has been so depressed he is hardly leaving the house, not bathing, feels overwhelmed with anxiety to the point where he is vomiting every morning, and no longer able to drive and see his grandkids. Patient finds it very hard to sleep, afraid that something bad will happen though cannot say what. Patient's OCD symptoms returned and he has been contain the worried that he left a cigarette burning summary the house, going to check, worried he is going to back over someone with his car and constantly checking... Patient said he felt so anxious and angry that he wanted to punch someone though he denies any plan or intent to act upon this. Patient has remained sober. No manic symptoms. Wants to get back on Effexor. Impression/plan: Patient seem to get significant relief from from combination of Effexor and Abilify in the past. He is not sure why Effexor was discontinued and Prozac started but it to the best of his knowledge this change is what caused depression/anxiety to return. Patient wants to get back on Effexor and agrees to cross titration; property underwriter discussed risks/side effects including serotonin syndrome which patient understands but accepts. Regarding Abilify, although this seem to be helpful last time, patient has considerable trouble sleeping and after discussing medication options agrees to try Zyprexa at bedtime instead of restarting Abilify (reviewed risks/side effects of Zyprexa and regimen which he understands and agrees to). Hospital course: 07/04 slept last night which was helpful; remains very depressed and anxious. Nystatin helping. Agrees to continue with plan. Discussed treatment plan regarding cross titration of Prozac for Effexor with Dr. Arnett who agrees with plan to avoid serotonin syndrome 07/06 LS Spine; Flexeril trial for pain/spasm Lumbar XRay, IMPRESSION: Severe degenerative disc disease at L2-L3, L3-L4, and L4-L5. 07/07 reviewed literature and Prozac 1/2 life 4-6 days, bringing remaining Prozac level equivalent to about 40mg making it safe to increase Effexor reports mood feels like going in right direction....more energy, not so negative, i would just worry a lot and i'm not as much as i was OCD stuff has been really good... not having intrusive thoughts using coping skills like breathing Discussed physical ailment. Patient complains of chronic lower back pain; says it comes and goes, hurt for a week or so and then resolves on its own but feels worse recently; describes what sounds like sciatica; reviewed x-ray and patient said he will follow up with PCP. Patient then reports right calf became suddenly swollen, from the knee down, starting last week right before admission; he says at home, was laying down for hours and hours, most of the day and night, not moving much due to depression; reports some pain in right calf. Patient has been on current dose of gabapentin for about a year On exam, patients right calf edematous, some mild pain on palpation; left calf also edematous but much less so Ordered ultrasound. 07/07/23 US/US venous duplex LE BI IMPRESSION: No DVT demonstrated in right and left lower extremities from the groin to the knee. The posterior tibial and peroneal veins were not seen bilaterally. Called to discuss results with radiologist Dr. Haney who reports that due to excess edematous fluid she was unable to visualize distal posterior tibial and peroneal veins (the ones in question) which she says is not uncommon; further workup requires risk stratification. Customer Management Specialist discussed case with Dr. Hampton and hospitalist NANCY Estrella to help further assess need for vascular consult or anticoagulation, especially in light of history of GI bleed. 07/08 Patient continues to report his mood is overall better and he likes the medications he is on; feels that Zyprexa may be helpful and he certainly sleeping better. Customer Management Specialist had discussed case with his outpatient provider Dr. Matheus Hughes and patient agrees with plan to continue with Zyprexa, Effexor titration for now and as an outpatient can consider adding Lamictal; also discussed efficacy of BuSpar and patient is ambivalent whether not it is helpful. Also discussed ECT as a potential option if symptoms continue to breakthrough medication management. Discussed continuing to titrate Effexor and moving towards possible discharge. Discussed anticoagulation, assessment for DVT, lower back pain. Patient understands these issues, medication regimen, risks and will follow up with PCP on discharge. Plan: CV Q 15 minute checks eliquis 10mg BID x 7 days, then 5mg BID Discontinue Prozac (patient has been on 80 mg for several months) Continue Effexor ER 75mg daily; will titrate SLOWLY at first, mindful of serotonin syndrome given Prozac's long half-life Continue Zyprexa 5 mg q.h.s.(started on admission) Continue clonazepam 1 mg q.i.d.(changed from 2 mg b.i.d. in the community) continue Ambien but make it a p.r.n. Continue Suboxone Continue gabapentin 800 mg t.i.d. Continue omeprazole continue BuSpar 30 mg b.i.d. nystatin b.i.d. for right axillary area due to likely fungal infection Outpatient provider Dr. Matheus Hughes reports that patient was doing better on Effexor for a few months but then symptoms returned in it began to get depressed again, panicky and anxious so decision was made to discontinue Effexor and start Prozac. Patient again did okay for a couple weeks on Prozac but then again had a return of symptoms; Dr. Hughes agrees with possible placebo effect. Medication trials that have not worked include Latuda, Vraylar, Abilify, Lexapro, Paxil, Effexor, Prozac. However Dr. Hughes thinks it is possible that Effexor could have been partially helpful. Discussed ECT is an option. He agrees with plan to continue retitration of Effexor and continued Zyprexa which has not been tried and currently seems to be helpful. Hospitalist NANCY recs: Acute RLE swelling -Venous duplex nondiagnostic, unable to compress veins in lower legs thought no DVT noted from groin to knee -4 points using wells criteria- high risk -ddimer likely to be non diagnostic due to severe obesity -Discussed with vascular surgery, initiate eliquis 10mg BID x 7 days, then 5mg BID -Check CBC, coags for baseline labs -Vascular surgery consult Per pt, had hx GI bleed, a tear about 1 year ago at [facility]. Upon review of [facility] records, there is no history in the last 5 years of any GI bleed, including in PCP notes. Called daughter for collateral who denies any known history of GI bleed. She also reports his memory is limited. At this time, do not feel there is a contraindication to anticoagulation. Monitor for evidence of bleeding. Discussed with Dr. Peguero Patient educated on: diagnosis, medication risk/benefits and medical condition Informed Consent: understands Reason for continued inpatient stay Substantial Risk for: stable for discharge Time Spent With Patient Time: Total time managing care of this patient today ____ minutes.
[2023-07-08] MEDS: Cyclobenzaprine HCl 10 MG TABLET PO ×4 (10:19→23:20)
[2023-07-08] MEDS: Apixaban 5 MG TABLET 10 MG PO ×2 (11:39→20:54)
[2023-07-08 16:35] VITALS: BP 125/88; PULSE 106; RESP 16; TEMP 36.5; O2SAT 94
[2023-07-08] MEDS: Zolpidem Tartrate 5 MG TABLET PO (20:54)
[2023-07-08] MEDS: OLANZapine 5 MG TABLET PO (20:54)
[2023-07-08] MEDS: traZODone HCL 50 MG TABLET PO (23:45)
[2023-07-09] MEDS: Acetaminophen 325 MG TABLET 650 MG PO ×2 (02:12→19:35)
[2023-07-09] MEDS: OLANZapine 5 MG TABLET PO ×2 (02:12→19:35)
[2023-07-09] MEDS: Cyclobenzaprine HCl 10 MG TABLET PO ×5 (04:47→23:11)
[2023-07-09] MEDS: hydrOXYzine HCL 25 MG TABLET PO ×3 (04:47→19:44)
[2023-07-09] MEDS: clonazePAM 1 MG TABLET PO ×4 (04:47→21:08)
[2023-07-09 06:00] VITALS: BP 123/82; PULSE 94; RESP 16; TEMP 37.1; O2SAT 94
[2023-07-09] MEDS: Omeprazole 40 MG CAPSULE.DR PO (06:12)
[2023-07-09] MEDS: Buprenorphine/Naloxone 8/2 mg FILM 1 FILM SUBLINGUAL ×2 (06:12→17:58)
[2023-07-09] MEDS: Gabapentin 400 MG CAPSULE 800 MG PO ×3 (08:31→19:36)
[2023-07-09] MEDS: Venlafaxine HCl ER 75 MG CAP.ER.24H PO (08:31)
[2023-07-09] MEDS: Apixaban 5 MG TABLET 10 MG PO ×2 (08:31→19:35)
[2023-07-09] MEDS: busPIRone HCl 10 MG TABLET 30 MG PO ×2 (08:31→19:36)
[2023-07-09] MEDS: Lidocaine 4 % Patch ADH..PATCH 1 PATCH TRANSDERMA (08:55)
[2023-07-09] MEDS: Nicotine 21 MG PATCH.TD24 TRANSDERMA (08:55)
--- NOTE | 2023-07-09 09:47 | P.PNPSI_ITS ---
Subjective Subjective Date of Service: 07/09/23 Reason For Visit: HI/severe anxiety Interim History: met with patient; discussed with team mood remains improved as does anxiety; reports much back pain; discussed adding extra suboxone as a prn too which he agrees. Mental Status Exam Mental Status Exam Narrative: Pt is alert and oriented; behavior is cooperative, calm, friendly; patient is not in distress; dressed in casual attire, unkempt but with adequate hygiene; mood is described as better...? Heading in the right direction and affect more calm, brighter; eye contact appropriate; Speech is normal rate, volume and prosody; no psychomotor retardation present; thought process is organized and goal directed; Thought content is on lower back pain, swollen calf; otherwise pertinent to relevant topics and without any delusional content, paranoid ideations or grandiosity; denies any SI/HI. There is no evidence of perceptual disturbance. Patients insight and judgment fair Diagnostics Vital Signs (24Hr): Vital Signs - 24 hr 07/08/23 16:35 Temperature 97.7 F Pulse Rate 106 H Respiratory Rate 16 Blood Pressure 125/88 Pulse Oximetry 94 Oxygen Delivery Method Room Air BMI result Body Mass Index 38.1 Labs 07/07/23 18:23 06/29/23 13:53 Labs: Laboratory Results - last 48 hr 07/07/23 18:23 WBC 5.6 RBC 4.76 Hgb 14.0 Hct 42.7 MCV 89.7 MCH 29.4 MCHC 32.8 RDW 13.3 Plt Count 133 L MPV 12.9 H Immature Gran % (Auto) 0.4 Neut % (Auto) 70.2 Lymph % (Auto) 16.2 L Lamb % (Auto) 10.1 Eos % (Auto) 2.7 Baso % (Auto) 0.4 Lymph # (Auto) 0.9 L Lamb # (Auto) 0.6 Eos # (Auto) 0.2 Baso # (Auto) 0.0 Abs Immat Gran (auto) 0.02 Absolute Neuts (auto) 3.9 Absolute Nucleated RBC 0.000 Nucleated RBC % (auto) 0.0 PT 11.8 INR 1.0 APTT 32.7 Imaging Radiology Impressions: ITS Impressions Lumbar Spine X-Ray 07/06/23 11:07 IMPRESSION: Severe degenerative disc disease at L2-L3, L3-L4, and L4-L5. Venous Duplex 07/07/23 11:29 IMPRESSION: No DVT demonstrated in right and left lower extremities from the groin to the knee. The posterior tibial and peroneal veins were not seen bilaterally. Medications Medications Current Medications Acetaminophen (Acetaminophen 325 Mg Tablet) 650 mg PO Q6H PRN PRN Reason: Headache/Pain Mild Scale (1-3) Last Admin: 07/09/23 02:12 Dose: 650 mg Al Hydroxide/Mg Hydroxide (Magnesium Hydrox/Alum Hydrox 30 Ml Oral.Susp) 30 ml PO Q6H PRN PRN Reason: Heartburn/Nausea Apixaban (Apixaban 5 Mg Tablet) 10 mg PO BID [facility] Stop: 07/14/23 09:01 Last Admin: 07/09/23 08:31 Dose: 10 mg Apixaban (Apixaban 5 Mg Tablet) 5 mg PO BID [facility] Buprenorphine/Naloxone (Buprenorphine/Naloxone 8/2 Mg Film) 1 film SUBLINGUAL BID@0600,1800 [facility] Last Admin: 07/09/23 06:12 Dose: 1 film Buspirone HCl (Buspirone Hcl 10 Mg Tablet) 30 mg PO BID [facility] Last Admin: 07/09/23 08:31 Dose: 30 mg Clonazepam (Clonazepam 1 Mg Tablet) 1 mg PO QID PRN PRN Reason: Anxiety Last Admin: 07/09/23 09:13 Dose: 1 mg Cyclobenzaprine HCl (Cyclobenzaprine Hcl 10 Mg Tablet) 10 mg PO Q4H PRN PRN Reason: muscle pain Last Admin: 07/09/23 09:13 Dose: 10 mg Fluticasone Propionate (Fluticasone Propionate Nasal 16 Gm [place]) 2 spray NOSTRIL-B DAILY [facility] Last Admin: 07/08/23 08:21 Dose: 2 spray Gabapentin (Gabapentin 400 Mg Capsule) 800 mg PO TID [facility] Last Admin: 07/09/23 08:31 Dose: 800 mg Hydroxyzine HCl (Hydroxyzine Hcl 25 Mg Tablet) 25 mg PO Q6H PRN PRN Reason: Anxiety Last Admin: 07/09/23 04:47 Dose: 25 mg Lidocaine (Lidocaine 4 % Patch Adh..Patch) 1 patch TRANSDERMA DAILY PRN; Protocol PRN Reason: lower back pain Last Admin: 07/09/23 08:55 Dose: 1 patch Magnesium Hydroxide (Milk Of Magnesia 30 Ml Oral.Susp) 30 ml PO DAILY PRN PRN Reason: Constipation Nicotine (Nicotine 21 Mg Patch.Td24) 21 mg TRANSDERMA DAILY PRN PRN Reason: smoking cessation Last Admin: 07/09/23 08:55 Dose: 21 mg Nicotine Polacrilex (Nicotine Polacrilex 2 Mg Gum) 4 mg BUCCAL Q2H PRN PRN Reason: Nicotine Cravings Last Admin: 07/08/23 08:22 Dose: 4 mg Nystatin (Nystatin Cream 15 Gm Tube) 1 appl TOPICAL BID [facility]; Protocol Last Admin: 07/09/23 00:00 Dose: Not Given Olanzapine (Olanzapine 5 Mg Tablet) 5 mg PO TID PRN PRN Reason: agitation Last Admin: 07/09/23 02:12 Dose: 5 mg Olanzapine (Olanzapine 5 Mg Tablet) 5 mg PO BEDTIME [facility] Last Admin: 07/08/23 20:54 Dose: 5 mg Olanzapine (Olanzapine 2.5 Mg Tablet) 2.5 mg PO BID PRN PRN Reason: moderate anxiety Last Admin: 07/07/23 02:01 Dose: 2.5 mg Omeprazole (Omeprazole 40 Mg Capsule.Dr) 40 mg PO DAILY@0630 [facility] Last Admin: 07/09/23 06:12 Dose: 40 mg Ondansetron HCl (Ondansetron Odt 4 Mg Tab.Rapdis) 4 mg TRANSLINGU Q6H PRN PRN Reason: Nausea and Vomiting Last Admin: 07/05/23 12:09 Dose: 4 mg Quetiapine Fumarate (Quetiapine Fumarate 50 Mg Tablet) 50 mg PO BID PRN PRN Reason: Anxiety Last Admin: 07/08/23 20:53 Dose: 50 mg Trazodone HCl (Trazodone Hcl 50 Mg Tablet) 50 mg PO BEDTIME MRX1 PRN PRN Reason: Insomnia Last Admin: 07/08/23 23:45 Dose: 50 mg Venlafaxine HCl (Venlafaxine Hcl Er 75 Mg Cap.Er.24h) 75 mg PO DAILY [facility] Last Admin: 07/09/23 08:31 Dose: 75 mg Zolpidem Tartrate (Zolpidem Tartrate 5 Mg Tablet) 5 mg PO BEDTIME PRN PRN Reason: Insomnia Last Admin: 07/08/23 20:54 Dose: 5 mg Allergies Allergies Allergy/AdvReac Type Severity Reaction Status Date / Time No Known Allergies Allergy Verified 06/29/23 12:53 Assessment & Plan Assessment & Plan (1) MDD (major depressive disorder), recurrent severe, without psychosis: Status: Acute Code(s): F33.2 - Major depressive disorder, recurrent severe without psychotic features (2) Obsessive-compulsive disorder with good or fair insight: Status: Acute Code(s): F42.9 - Obsessive-compulsive disorder, unspecified (3) PINA (generalized anxiety disorder): Status: Acute Code(s): F41.1 - Generalized anxiety disorder (4) Panic disorder: Status: Acute Code(s): F41.0 - Panic disorder [episodic paroxysmal anxiety] (5) Opioid use disorder, moderate, in early remission, on maintenance therapy: Status: Acute Code(s): F11.21 - Opioid dependence, in remission (6) OFELIA (obstructive sleep apnea): Status: Acute Code(s): G47.33 - Obstructive sleep apnea (adult) (pediatric) (7) Right leg swelling: Status: Acute Code(s): M79.89 - Other specified soft tissue disorders Plan Patient is a 58 year old male with history of MDD, recurrent, severe, OCD, PINA, alcohol/benzo/opioid use disorder in sustained remission who presents for worsening depression, anxiety and resurgence of OCD symptoms likely in the face of medication changes. Patient reports that after his last admission about a year ago, he was doing overall well, feeling that depression and anxiety and OCD symptoms were all moderately well treated. Patient is very unclear about which occurred 1st but this fall he was taking off Effexor and put on to Prozac. He does not know why this change occurred but He thinks this was a mistake and that he was doing better on the Effexor. To his recollection his mood started to decline after this change was made and has worsened over the past several months. The last few weeks that has worsened still and he has been so depressed he is hardly leaving the house, not bathing, feels overwhelmed with anxiety to the point where he is vomiting every morning, and no longer able to drive and see his grandkids. Patient finds it very hard to sleep, afraid that something bad will happen though cannot say what. Patient's OCD symptoms returned and he has been contain the worried that he left a cigarette burning summary the house, going to check, worried he is going to back over someone with his car and constantly checking... Patient said he felt so anxious and angry that he wanted to punch someone though he denies any plan or intent to act upon this. Patient has remained sober. No manic symptoms. Wants to get back on Effexor. Impression/plan: Patient seem to get significant relief from from combination of Effexor and Abilify in the past. He is not sure why Effexor was discontinued and Prozac started but it to the best of his knowledge this change is what caused depression/anxiety to return. Patient wants to get back on Effexor and agrees to cross titration; development writer discussed risks/side effects including serotonin syndrome which patient understands but accepts. Regarding Abilify, although this seem to be helpful last time, patient has considerable trouble sleeping and after discussing medication options agrees to try Zyprexa at bedtime instead of restarting Abilify (reviewed risks/side effects of Zyprexa and regimen which he understands and agrees to). Hospital course: 07/04 slept last night which was helpful; remains very depressed and anxious. Nystatin helping. Agrees to continue with plan. Discussed treatment plan regarding cross titration of Prozac for Effexor with Dr. Arnett who agrees with plan to avoid serotonin syndrome 07/06 [facility] Sp[facility]; Flexeril trial for pain/spasm Lumbar XRay, IMPRESSION: Severe degenerative disc disease at L2-L3, L3-L4, and L4-L5. 07/07 reviewed literature and Prozac 1/2 life 4-6 days, bringing remaining Prozac level equivalent to about 40mg making it safe to increase Effexor reports mood feels like going in right direction....more energy, not so negative, i would just worry a lot and i'm not as much as i was OCD stuff has been really good... not having intrusive thoughts using coping skills like breathing Discussed physical ailment. Patient complains of chronic lower back pain; says it comes and goes, hurt for a week or so and then resolves on its own but feels worse recently; describes what sounds like sciatica; reviewed x-ray and patient said he will follow up with PCP. Patient then reports right calf became suddenly swollen, from the knee down, starting last week right before admission; he says at home, was laying down for hours and hours, most of the day and night, not moving much due to depression; reports some pain in right calf. Patient has been on current dose of gabapentin for about a year On exam, patients right calf edematous, some mild pain on palpation; left calf also edematous but much less so Ordered ultrasound. 07/07/23 US/US venous duplex LE BI IMPRESSION: No DVT demonstrated in right and left lower extremities from the groin to the knee. The posterior tibial and peroneal veins were not seen bilaterally. Called to discuss results with radiologist Dr. Haney who reports that due to excess edematous fluid she was unable to visualize distal posterior tibial and peroneal veins (the ones in question) which she says is not uncommon; further workup requires risk stratification. Strip Mine Supervisor discussed case with Dr. Hampton and hospitalist NANCY Estrella to help further assess need for vascular consult or anticoagulation, especially in light of history of GI bleed. 07/08 Patient continues to report his mood is overall better and he likes the medications he is on; feels that Zyprexa may be helpful and he certainly sleeping better. Strip Mine Supervisor had discussed case with his outpatient provider Dr. Matheus Hughes and patient agrees with plan to continue with Zyprexa, Effexor titration for now and as an outpatient can consider adding Lamictal; also discussed efficacy of BuSpar and patient is ambivalent whether not it is helpful. Also discussed ECT as a potential option if symptoms continue to breakthrough medication management. Discussed continuing to titrate Effexor and moving towards possible discharge. Discussed anticoagulation, assessment for DVT, lower back pain. Patient understands these issues, medication regimen, risks and will follow up with PCP on discharge. 07/09 improved; adding suboxone prn Plan: CV Q 15 minute checks eliquis 10mg BID x 7 days, then 5mg BID Discontinue Prozac (patient has been on 80 mg for several months) Continue Effexor ER 75mg daily; will titrate SLOWLY at first, mindful of serotonin syndrome given Prozac's long half-life Continue Zyprexa 5 mg q.h.s.(started on admission) Continue clonazepam 1 mg q.i.d.(changed from 2 mg b.i.d. in the community) continue Ambien but make it a p.r.n. Continue Suboxone Continue gabapentin 800 mg t.i.d. Continue omeprazole continue BuSpar 30 mg b.i.d. nystatin b.i.d. for right axillary area due to likely fungal infection Outpatient provider Dr. Matheus Hughes reports that patient was doing better on Effexor for a few months but then symptoms returned in it began to get depressed again, panicky and anxious so decision was made to discontinue Effexor and start Prozac. Patient again did okay for a couple weeks on Prozac but then again had a return of symptoms; Dr. Hughes agrees with possible placebo effect. Medication trials that have not worked include Latuda, Vraylar, Abilify, Lexapro, Paxil, Effexor, Prozac. However Dr. Hughes thinks it is possible that Effexor could have been partially helpful. Discussed ECT is an option. He agrees with plan to continue retitration of Effexor and continued Zyprexa which has not been tried and currently seems to be helpful. Hospitalist NANCY recs: Acute RLE swelling -Venous duplex nondiagnostic, unable to compress veins in lower legs thought no DVT noted from groin to knee -4 points using wells criteria- high risk -ddimer likely to be non diagnostic due to severe obesity -Discussed with vascular surgery, initiate eliquis 10mg BID x 7 days, then 5mg BID -Check CBC, coags for baseline labs -Vascular surgery consult Per pt, had hx GI bleed, a tear about 1 year ago at [facility]. Upon review of [facility] records, there is no history in the last 5 years of any GI bleed, including in PCP notes. Called daughter for collateral who denies any known history of GI bleed. She also reports his memory is limited. At this time, do not feel there is a contraindication to anticoagulation. Monitor for evidence of bleeding. Discussed with Dr. Peguero Patient educated on: diagnosis, medication risk/benefits and medical condition Informed Consent: understands Reason for continued inpatient stay Substantial Risk for: stable for discharge Time Spent With Patient Time: Total time managing care of this patient today ____ minutes.
[2023-07-09] MEDS: Buprenorphine/Naloxone 4/1 mg FILM 1 FILM SUBLINGUAL (13:19)
[2023-07-09] MEDS: Carbamide Peroxide 6.5% Otic 15 ML DRPBTL 5 DROP EAR-LEFT (14:44)
--- NOTE | 2023-07-09 17:03 | P.EN_ITS ---
Event Note Date of Service: 07/09/23 Event Note: Follow-up outpatient recently diagnosed with possible DVT and started on Eliquis. Question of lower leg edema and possible cellulitis. Upon examination no significant lower leg edema appreciated bilaterally. Patient with small superficial abrasion on left anterior lower leg, but no sign of cellulitis: No erythema, warmth, swelling. No indication for antibiotics at this time. Would suggest Eucerin or other emollient for dry skin on lower legs and feet. Enco urage patient to ambulate with walker. Thank you for allowing us to participate in the care of this patient. Signing off at this time. Please re-consult if any acute complaints or issues arise. Time Spent With Patient Time: Total time managing care of this patient today ____ minutes.
[2023-07-09] MEDS: QUEtiapine Fumarate 50 MG TABLET PO (17:57)
[2023-07-09 18:00] VITALS: BP 126/77; PULSE 98; RESP 16; TEMP 36.2; O2SAT 94
[2023-07-09] MEDS: Dry Mouth Spray 60 ML SPRAY 1 SPRAY MUCOUS MEM (18:28)
[2023-07-09] MEDS: Zolpidem Tartrate 5 MG TABLET PO (21:50)
[2023-07-10] MEDS: hydrOXYzine HCL 25 MG TABLET PO (02:52)
[2023-07-10] MEDS: Cyclobenzaprine HCl 10 MG TABLET PO ×5 (02:52→23:13)
[2023-07-10] MEDS: clonazePAM 1 MG TABLET PO ×5 (02:54→23:14)
[2023-07-10] MEDS: Buprenorphine/Naloxone 8/2 mg FILM 1 FILM SUBLINGUAL ×2 (06:58→17:41)
[2023-07-10] MEDS: Omeprazole 40 MG CAPSULE.DR PO (06:59)
[2023-07-10 07:00] VITALS: BMI 41.2
[2023-07-10] MEDS: Venlafaxine HCl ER 75 MG CAP.ER.24H PO (08:13)
[2023-07-10] MEDS: Apixaban 5 MG TABLET 10 MG PO ×2 (08:14→20:41)
[2023-07-10] MEDS: busPIRone HCl 10 MG TABLET 30 MG PO ×2 (08:14→20:41)
[2023-07-10] MEDS: Gabapentin 400 MG CAPSULE 800 MG PO ×3 (08:14→20:41)
[2023-07-10] MEDS: Nicotine 21 MG PATCH.TD24 TRANSDERMA (08:42)
[2023-07-10] MEDS: Carbamide Peroxide 6.5% Otic 15 ML DRPBTL 5 DROP EAR-LEFT ×2 (08:42→20:43)
[2023-07-10] MEDS: Fluticasone Propionate Nasal 16 GM SPRAY 2 SPRAY NOSTRIL-B (08:43)
[2023-07-10] MEDS: Lidocaine 4 % Patch ADH..PATCH 1 PATCH TRANSDERMA (08:43)
[2023-07-10] MEDS: Nicotine Polacrilex 2 MG GUM 4 MG BUCCAL (08:44)
--- NOTE | 2023-07-10 09:45 | P.PNPSI_ITS ---
Subjective Subjective Date of Service: 07/10/23 Reason For Visit: HI/severe anxiety Interim History: met with patient; discussed with team Patient feeling better and ready for discharge. Affect noticeably brighter. He is optimistic and hopeful he will continue to maintain good mood. Continues to complain of chronic pain but will meet with outpatient provider. reviewed meds (and patient has VNA). Mental Status Exam Mental Status Exam Narrative: Pt is alert and oriented; behavior is cooperative, calm, friendly; patient is not in distress; dressed in casual attire, unkempt but with adequate hygiene; mood is described as better... and affect more calm, brighter; eye contact appropriate; Speech is normal rate, volume and prosody; no psychomotor retardation present; thought process is organized and goal directed; Thought content is on lower back pain, swollen calf; otherwise pertinent to relevant topics and without any delusional content, paranoid ideations or grandiosity; denies any SI/HI. There is no evidence of perceptual disturbance. Patients insight and judgment fair Diagnostics Vital Signs (24Hr): Vital Signs - 24 hr 07/09/23 18:00 Temperature 97.1 F Pulse Rate 98 Respiratory Rate 16 Blood Pressure 126/77 Pulse Oximetry 94 Oxygen Delivery Method Room Air BMI result Body Mass Index 38.1 Labs 07/07/23 18:23 06/29/23 13:53 Imaging Radiology Impressions: ITS Impressions Lumbar Spine X-Ray 07/06/23 11:07 IMPRESSION: Severe degenerative disc disease at L2-L3, L3-L4, and L4-L5. Venous Duplex 07/07/23 11:29 IMPRESSION: No DVT demonstrated in right and left lower extremities from the groin to the knee. The posterior tibial and peroneal veins were not seen bilaterally. Medications Medications Current Medications Acetaminophen (Acetaminophen 325 Mg Tablet) 650 mg PO Q6H PRN PRN Reason: Headache/Pain Mild Scale (1-3) Last Admin: 07/09/23 19:35 Dose: 650 mg Al Hydroxide/Mg Hydroxide (Magnesium Hydrox/Alum Hydrox 30 Ml Oral.Susp) 30 ml PO Q6H PRN PRN Reason: Heartburn/Nausea Apixaban (Apixaban 5 Mg Tablet) 10 mg PO BID MAURISIO Stop: 07/14/23 09:01 Last Admin: 07/10/23 08:14 Dose: 10 mg Apixaban (Apixaban 5 Mg Tablet) 5 mg PO BID [facility] Buprenorphine/Naloxone (Buprenorphine/Naloxone 8/2 Mg Film) 1 film SUBLINGUAL BID@0600,1800 [facility] Last Admin: 07/10/23 06:58 Dose: 1 film Buprenorphine/Naloxone (Buprenorphine/Naloxone 4/1 Mg Film) 1 film SUBLINGUAL BID PRN PRN Reason: severe pain Last Admin: 07/09/23 13:19 Dose: 1 film Buspirone HCl (Buspirone Hcl 10 Mg Tablet) 30 mg PO BID [facility] Last Admin: 07/10/23 08:14 Dose: 30 mg Carbamide Peroxide (Carbamide Peroxide 6.5% Otic 15 Ml Drpbtl) 5 drop EAR-LEFT BID [facility] Stop: 07/13/23 12:34 Last Admin: 07/10/23 08:42 Dose: 5 drop Clonazepam (Clonazepam 1 Mg Tablet) 1 mg PO QID PRN PRN Reason: Anxiety Last Admin: 07/10/23 08:44 Dose: 1 mg Cyclobenzaprine HCl (Cyclobenzaprine Hcl 10 Mg Tablet) 10 mg PO Q4H PRN PRN Reason: muscle pain Last Admin: 07/10/23 08:43 Dose: 10 mg Fluticasone Propionate (Fluticasone Propionate Nasal 16 Gm [place]) 2 spray NOSTRIL-B DAILY [facility] Last Admin: 07/10/23 08:43 Dose: 2 spray Gabapentin (Gabapentin 400 Mg Capsule) 800 mg PO TID [facility] Last Admin: 07/10/23 08:14 Dose: 800 mg Hydroxyzine HCl (Hydroxyzine Hcl 25 Mg Tablet) 25 mg PO Q6H PRN PRN Reason: Anxiety Last Admin: 07/10/23 02:52 Dose: 25 mg Lidocaine (Lidocaine 4 % Patch Adh..Patch) 1 patch TRANSDERMA DAILY PRN; Protocol PRN Reason: lower back pain Last Admin: 07/10/23 08:43 Dose: 1 patch Magnesium Hydroxide (Milk Of Magnesia 30 Ml Oral.Susp) 30 ml PO DAILY PRN PRN Reason: Constipation Nicotine (Nicotine 21 Mg Patch.Td24) 21 mg TRANSDERMA DAILY PRN PRN Reason: smoking cessation Last Admin: 07/10/23 08:42 Dose: 21 mg Nicotine Polacrilex (Nicotine Polacrilex 2 Mg Gum) 4 mg BUCCAL Q2H PRN PRN Reason: Nicotine Cravings Last Admin: 07/10/23 08:44 Dose: 4 mg Nystatin (Nystatin Cream 15 Gm Tube) 1 appl TOPICAL BID [facility]; Protocol Last Admin: 07/10/23 02:33 Dose: Not Given Olanzapine (Olanzapine 5 Mg Tablet) 5 mg PO TID PRN PRN Reason: agitation Last Admin: 07/09/23 02:12 Dose: 5 mg Olanzapine (Olanzapine 5 Mg Tablet) 5 mg PO BEDTIME [facility] Last Admin: 07/09/23 19:35 Dose: 5 mg Olanzapine (Olanzapine 2.5 Mg Tablet) 2.5 mg PO BID PRN PRN Reason: moderate anxiety Last Admin: 07/07/23 02:01 Dose: 2.5 mg Omeprazole (Omeprazole 40 Mg Capsule.Dr) 40 mg PO DAILY@0630 [facility] Last Admin: 07/10/23 06:59 Dose: 40 mg Ondansetron HCl (Ondansetron Odt 4 Mg Tab.Rapdis) 4 mg TRANSLINGU Q6H PRN PRN Reason: Nausea and Vomiting Last Admin: 07/05/23 12:09 Dose: 4 mg Quetiapine Fumarate (Quetiapine Fumarate 50 Mg Tablet) 50 mg PO BID PRN PRN Reason: Anxiety Last Admin: 07/09/23 17:57 Dose: 50 mg Saliva Substitute (Dry Mouth [place] 60 Ml [place]) 1 spray MUCOUS MEM Q2H PRN PRN Reason: Dry Mouth Last Admin: 07/09/23 18:28 Dose: 1 spray Trazodone HCl (Trazodone Hcl 50 Mg Tablet) 50 mg PO BEDTIME MRX1 PRN PRN Reason: Insomnia Last Admin: 07/08/23 23:45 Dose: 50 mg Venlafaxine HCl (Venlafaxine Hcl Er 75 Mg Cap.Er.24h) 75 mg PO DAILY [facility] Last Admin: 07/10/23 08:13 Dose: 75 mg Zolpidem Tartrate (Zolpidem Tartrate 5 Mg Tablet) 5 mg PO BEDTIME PRN PRN Reason: Insomnia Last Admin: 07/09/23 21:50 Dose: 5 mg Allergies Allergies Allergy/AdvReac Type Severity Reaction Status Date / Time No Known Allergies Allergy Verified 06/29/23 12:53 Assessment & Plan Assessment & Plan (1) MDD (major depressive disorder), recurrent severe, without psychosis: Status: Acute Code(s): F33.2 - Major depressive disorder, recurrent severe without psychotic features (2) Obsessive-compulsive disorder with good or fair insight: Status: Acute Code(s): F42.9 - Obsessive-compulsive disorder, unspecified (3) PINA (generalized anxiety disorder): Status: Acute Code(s): F41.1 - Generalized anxiety disorder (4) Panic disorder: Status: Acute Code(s): F41.0 - Panic disorder [episodic paroxysmal anxiety] (5) Opioid use disorder, moderate, in early remission, on maintenance therapy: Status: Acute Code(s): F11.21 - Opioid dependence, in remission (6) OFELIA (obstructive sleep apnea): Status: Acute Code(s): G47.33 - Obstructive sleep apnea (adult) (pediatric) (7) Right leg swelling: Status: Acute Code(s): M79.89 - Other specified soft tissue disorders Plan Patient is a 58 year old male with history of MDD, recurrent, severe, OCD, PINA, alcohol/benzo/opioid use disorder in sustained remission who presents for worsening depression, anxiety and resurgence of OCD symptoms likely in the face of medication changes. Patient reports that after his last admission about a year ago, he was doing overall well, feeling that depression and anxiety and OCD symptoms were all moderately well treated. Patient is very unclear about which occurred 1st but this fall he was taking off Effexor and put on to Prozac. He does not know why this change occurred but He thinks this was a mistake and that he was doing better on the Effexor. To his recollection his mood started to decline after this change was made and has worsened over the past several months. The last few weeks that has worsened still and he has been so depressed he is hardly leaving the house, not bathing, feels overwhelmed with anxiety to the point where he is vomiting every morning, and no longer able to drive and see his grandkids. Patient finds it very hard to sleep, afraid that something bad will happen though cannot say what. Patient's OCD symptoms returned and he has been contain the worried that he left a cigarette burning summary the house, going to check, worried he is going to back over someone with his car and constantly checking... Patient said he felt so anxious and angry that he wanted to punch someone though he denies any plan or intent to act upon this. Patient has remained sober. No manic symptoms. Wants to get back on Effexor. Impression/plan: Patient seem to get significant relief from from combination of Effexor and Abilify in the past. He is not sure why Effexor was discontinued and Prozac started but it to the best of his knowledge this change is what caused depression/anxiety to return. Patient wants to get back on Effexor and agrees to cross titration; conventional underwriter discussed risks/side effects including serotonin syndrome which patient understands but accepts. Regarding Abilify, although this seem to be helpful last time, patient has considerable trouble sleeping and after discussing medication options agrees to try Zyprexa at bedtime instead of restarting Abilify (reviewed risks/side effects of Zyprexa and regimen which he understands and agrees to). Hospital course: 07/04 slept last night which was helpful; remains very depressed and anxious. Nystatin helping. Agrees to continue with plan. Discussed treatment plan regarding cross titration of Prozac for Effexor with Dr. Arnett who agrees with plan to avoid serotonin syndrome 07/06 LS Spine; Flexeril trial for pain/spasm Lumbar XRay, IMPRESSION: Severe degenerative disc disease at L2-L3, L3-L4, and L4-L5. 07/07 reviewed literature and Prozac 1/2 life 4-6 days, bringing remaining Prozac level equivalent to about 40mg making it safe to increase Effexor reports mood feels like going in right direction....more energy, not so negative, i would just worry a lot and i'm not as much as i was OCD stuff has been really good... not having intrusive thoughts using coping skills like breathing Discussed physical ailment. Patient complains of chronic lower back pain; says it comes and goes, hurt for a week or so and then resolves on its own but feels worse recently; describes what sounds like sciatica; reviewed x-ray and patient said he will follow up with PCP. Patient then reports right calf became suddenly swollen, from the knee down, starting last week right before admission; he says at home, was laying down for hours and hours, most of the day and night, not moving much due to depression; reports some pain in right calf. Patient has been on current dose of gabapentin for about a year On exam, patients right calf edematous, some mild pain on palpation; left calf also edematous but much less so Ordered ultrasound. 07/07/23 US/US venous duplex LE BI IMPRESSION: No DVT demonstrated in right and left lower extremities from the groin to the knee. The posterior tibial and peroneal veins were not seen bilaterally. Called to discuss results with radiologist Dr. Haney who reports that due to excess edematous fluid she was unable to visualize distal posterior tibial and peroneal veins (the ones in question) which she says is not uncommon; further workup requires risk stratification. Auxiliary Equipment Tender discussed case with Dr. Hampton and hospitalist NANCY Estrella to help further assess need for vascular consult or anticoagulation, especially in light of history of GI bleed. 07/08 Patient continues to report his mood is overall better and he likes the medications he is on; feels that Zyprexa may be helpful and he certainly sleeping better. Auxiliary Equipment Tender had discussed case with his outpatient provider Dr. Matheus Hughes and patient agrees with plan to continue with Zyprexa, Effexor titration for now and as an outpatient can consider adding Lamictal; also discussed efficacy of BuSpar and patient is ambivalent whether not it is helpful. Also discussed ECT as a potential option if symptoms continue to breakthrough medication management. Discussed continuing to titrate Effexor and moving towards possible discharge. Discussed anticoagulation, assessment for DVT, lower back pain. Patient understands these issues, medication regimen, risks and will follow up with PCP on discharge. 07/09 improved; adding suboxone prn 07/10 pain continues but Suboxone helps. Patient remains with improved mood and feeling ready for discharge; he is optimistic that he will continue to maintain a good mood. No SI; denies OCD symptoms. Patient is not in imminent risk for harm to self or others and appropriate to return to the community for treatment. Plan: CV Q 15 minute checks eliquis 10mg BID x 7 days, then 5mg BID Discontinue Prozac (patient has been on 80 mg for several months) Continue Effexor ER 75mg daily; will titrate SLOWLY at first, mindful of serotonin syndrome given Prozac's long half-life Continue Zyprexa 5 mg q.h.s.(started on admission) Continue clonazepam 1 mg q.i.d.(changed from 2 mg b.i.d. in the community) continue Ambien but make it a p.r.n. Continue Suboxone Continue gabapentin 800 mg t.i.d. Continue omeprazole continue BuSpar 30 mg b.i.d. nystatin b.i.d. for right axillary area due to likely fungal infection Outpatient provider Dr. Matheus Hughes reports that patient was doing better on Effexor for a few months but then symptoms returned in it began to get depressed again, panicky and anxious so decision was made to discontinue Effexor and start Prozac. Patient again did okay for a couple weeks on Prozac but then again had a return of symptoms; Dr. Hughes agrees with possible placebo effect. Medication trials that have not worked include Latuda, Vraylar, Abilify, Lexapro, Paxil, Effexor, Prozac. However Dr. Hughes thinks it is possible that Effexor could have been partially helpful. Discussed ECT is an option. He agrees with plan to continue retitration of Effexor and continued Zyprexa which has not been tried and currently seems to be helpful. Hospitalist NANCY recs: Acute RLE swelling -Venous duplex nondiagnostic, unable to compress veins in lower legs thought no DVT noted from groin to knee -4 points using wells criteria- high risk -ddimer likely to be non diagnostic due to severe obesity -Discussed with vascular surgery, initiate eliquis 10mg BID x 7 days, then 5mg BID -Check CBC, coags for baseline labs -Vascular surgery consult Per pt, had hx GI bleed, a tear about 1 year ago at [facility]. Upon review of [facility] records, there is no history in the last 5 years of any GI bleed, including in PCP notes. Called daughter for collateral who denies any known history of GI bleed. She also reports his memory is limited. At this time, do not feel there is a contraindication to anticoagulation. Monitor for evidence of bleeding. Discussed with Dr. Peguero Patient educated on: diagnosis, medication risk/benefits and medical condition Informed Consent: understands Reason for continued inpatient stay Substantial Risk for: stable for discharge Time Spent With Patient Time: Total time managing care of this patient today ____ minutes.
[2023-07-10] MEDS: Dry Mouth Spray 60 ML SPRAY 1 SPRAY MUCOUS MEM (09:58)
[2023-07-10 10:02] VITALS: BP 127/79; PULSE 109; RESP 18; TEMP 36.6; O2SAT 95
[2023-07-10] MEDS: Acetaminophen 325 MG TABLET 650 MG PO ×2 (11:32→18:49)
[2023-07-10 18:10] VITALS: BP 144/89; PULSE 94; RESP 16; TEMP 36.5; O2SAT 94
[2023-07-10] MEDS: QUEtiapine Fumarate 50 MG TABLET PO (18:49)
[2023-07-10] MEDS: OLANZapine 5 MG TABLET PO (20:41)
[2023-07-10] MEDS: Zolpidem Tartrate 5 MG TABLET PO (20:45)
[2023-07-11] MEDS: Acetaminophen 325 MG TABLET 650 MG PO (02:24)
[2023-07-11] MEDS: Dry Mouth Spray 60 ML SPRAY 1 SPRAY MUCOUS MEM (02:47)
[2023-07-11] MEDS: clonazePAM 1 MG TABLET PO ×2 (06:18→10:56)
[2023-07-11] MEDS: Buprenorphine/Naloxone 8/2 mg FILM 1 FILM SUBLINGUAL (06:18)
[2023-07-11] MEDS: Omeprazole 40 MG CAPSULE.DR PO (06:18)
[2023-07-11] MEDS: Fluticasone Propionate Nasal 16 GM SPRAY 2 SPRAY NOSTRIL-B (08:19)
[2023-07-11] MEDS: Nicotine 21 MG PATCH.TD24 TRANSDERMA (08:19)
[2023-07-11] MEDS: Carbamide Peroxide 6.5% Otic 15 ML DRPBTL 5 DROP EAR-LEFT (08:20)
[2023-07-11] MEDS: Apixaban 5 MG TABLET 10 MG PO (08:20)
[2023-07-11] MEDS: Cyclobenzaprine HCl 10 MG TABLET PO (08:21)
[2023-07-11] MEDS: busPIRone HCl 10 MG TABLET 30 MG PO (08:21)
[2023-07-11] MEDS: Venlafaxine HCl ER 75 MG CAP.ER.24H PO (08:21)
[2023-07-11] MEDS: Gabapentin 400 MG CAPSULE 800 MG PO (08:21)
[2023-07-11 08:57] VITALS: BP 128/88; PULSE 85; RESP 16; TEMP 36.5; O2SAT 92
[2023-07-11] MEDS: Lidocaine 4 % Patch ADH..PATCH 1 PATCH TRANSDERMA (09:56)
--- NOTE | 2023-07-11 10:43 | PM.PSYDC ---
DS: Providers Provider Date of Service: 07/11/23 Date of admission: 07/02/23 13:23 Date of discharge: 07/11/23 Primary care physician: Joanne Chapman CNP Attending physician on admission: Lamin Gonzalez Consults: 07/07/23 14:47 Consult to Hospitalist Routine Comment: Consulting Provider: Hospitalist Reason For Exam: r/o right calf DVT (hx, presentation vs imaging) 07/07/23 17:17 Consult to Vascular Surgery Routine Consulting Provider: [facility] [place] Vascular Services Reason for consultation: RLE swelling, clinical DVT Attending physician on discharge: Lamin Gonzalez DS: Diagnosis Discharge Diagnosis (1) MDD (major depressive disorder), recurrent severe, without psychosis: Status: Acute (2) Obsessive-compulsive disorder with good or fair insight: Status: Acute (3) PINA (generalized anxiety disorder): Status: Acute (4) Panic disorder: Status: Acute (5) Opioid use disorder, moderate, in early remission, on maintenance therapy: Status: Acute (6) OFELIA (obstructive sleep apnea): Status: Acute (7) Right leg swelling: Status: Acute DS: Medications Discharge Medications Home Medications: Home Medications Medication Instructions Recorded Confirmed gabapentin 800 mg tablet 800 mg PO TID 06/29/23 06/29/23 omeprazole 40 mg capsule,delayed 40 mg PO DAILY 06/29/23 06/29/23 release quetiapine 50 mg tablet 50 mg PO BID PRN Anxiety 06/29/23 06/29/23 Previous Rx's Medication Instructions Recorded buspirone 30 mg tablet 30 mg PO BID 30 days #60 tabs 09/11/21 fluticasone propionate 50 2 spray intranasal DAILY 30 days 09/11/21 mcg/actuation nasal #16 grams spray,suspension apixaban 5 mg tablet (Eliquis) 5 mg PO BID 30 days #60 tabs 07/10/23 artificial saliva (yerba sandra and 1 spray mucous membrane Q2H PRN 07/10/23 lytes) spray (Mouth Kote [place]) Dry Mouth 30 days #236 mL buprenorphine 8 mg-naloxone 2 mg 0.5 film sublingual BID PRN pain 07/10/23 sublingual film (scale score 7-10) 30 days #15 ea carbamide peroxide 6.5 % ear drops 5 drp otic (ear) left BID 7 days 07/10/23 (Ear Wax Removal Drops) #15 mL clonazepam 1 mg tablet 1 mg PO QID PRN Anxiety 30 days 07/10/23 #120 tabs cyclobenzaprine 10 mg tablet 10 mg PO Q4H PRN muscle pain 30 07/10/23 days #120 tabs lidocaine 4 % topical patch 1 patch transdermal DAILY PRN 07/10/23 (Lidocaine Pain Relief) lower back pain 30 days #30 ea nicotine (polacrilex) 4 mg gum 4 mg buccal Q2H PRN nicotine 07/10/23 cravings 30 days #100 ea nicotine 21 mg/24 hr daily 21 mg transdermal DAILY PRN 07/10/23 transdermal patch smoking cessation 28 days #28 ea olanzapine 5 mg tablet See Rx Instructions .Route 07/10/23 .COMPLEX 30 days #60 tabs venlafaxine 75 mg capsule,extended 75 mg PO DAILY 30 days #30 caps 07/10/23 release 24 hr zolpidem 12.5 mg tablet,extended 12.5 mg PO BEDTIME PRN insomnia 07/10/23 release,multiphase #30 tabs buprenorphine 8 mg-naloxone 2 mg 1 film buccal BID@0900,1500 30 07/11/23 sublingual film (Suboxone) days #60 ea Mental Status Exam Mental Status Exam Narrative: Pt is alert and oriented; behavior is cooperative, calm, friendly; patient is not in distress; dressed in casual attire, unkempt but with adequate hygiene; mood is described as good and affect more calm, brighter; eye contact appropriate; Speech is normal rate, volume and prosody; no psychomotor retardation present; thought process is organized and goal directed; Thought content is on dealing with lower back pain, swollen calf; otherwise pertinent to relevant topics and without any delusional content, paranoid ideations or grandiosity; denies any SI/HI. There is no evidence of perceptual disturbance. Patients insight and judgment fair Data Data Completed and Pending Completed studies during hospitalization [Text1]: 07/07/23 18:23 WBC 5.6 RBC 4.76 Hgb 14.0 Hct 42.7 MCV 89.7 MCH 29.4 MCHC 32.8 RDW 13.3 Plt Count 133 L MPV 12.9 H Immature Gran % (Auto) 0.4 Neut % (Auto) 70.2 Lymph % (Auto) 16.2 L [place] % (Auto) 10.1 Eos % (Auto) 2.7 Baso % (Auto) 0.4 Lymph # (Auto) 0.9 L [place] # (Auto) 0.6 Eos # (Auto) 0.2 Baso # (Auto) 0.0 Abs Immat Gran (auto) 0.02 Absolute Neuts (auto) 3.9 Absolute Nucleated RBC 0.000 Nucleated RBC % (auto) 0.0 PT 11.8 INR 1.0 APTT 32.7 Imaging Diagnostic Imaging Impressions Lumbar Spine X-Ray 07/06/23 11:07 IMPRESSION: Severe degenerative disc disease at L2-L3, L3-L4, and L4-L5. Venous Duplex 07/07/23 11:29 IMPRESSION: No DVT demonstrated in right and left lower extremities from the groin to the knee. The posterior tibial and peroneal veins were not seen bilaterally. DS: Summary Hospital Course Hospital Course: HPI: Patient is a 58 year old male with history of MDD, recurrent, severe, OCD, PINA, alcohol/benzo/opioid use disorder in sustained remission who presents for worsening depression, anxiety and resurgence of OCD symptoms likely in the face of medication changes. Patient reports that after his last admission about a year ago, he was doing overall well, feeling that depression and anxiety and OCD symptoms were all moderately well treated. Patient is very unclear about which occurred 1st but this fall he was taking off Effexor and put on to Prozac. He does not know why this change occurred but He thinks this was a mistake and that he was doing better on the Effexor. To his recollection his mood started to decline after this change was made and has worsened over the past several months. The last few weeks that has worsened still and he has been so depressed he is hardly leaving the house, not bathing, feels overwhelmed with anxiety to the point where he is vomiting every morning, and no longer able to drive and see his grandkids. Patient finds it very hard to sleep, afraid that something bad will happen though cannot say what. Patient's OCD symptoms returned and he has been contain the worried that he left a cigarette burning summary the house, going to check, worried he is going to back over someone with his car and constantly checking... Patient said he felt so anxious and angry that he wanted to punch someone though he denies any plan or intent to act upon this. Patient has remained sober. No manic symptoms. Wants to get back on Effexor. Impression/plan: Patient seem to get significant relief from from combination of Effexor and Abilify in the past. He is not sure why Effexor was discontinued and Prozac started but it to the best of his knowledge this change is what caused depression/anxiety to return. Patient wants to get back on Effexor and agrees to cross titration; va underwriter discussed risks/side effects including serotonin syndrome which patient understands but accepts. Regarding Abilify, although this seem to be helpful last time, patient has considerable trouble sleeping and after discussing medication options agrees to try Zyprexa at bedtime instead of restarting Abilify (reviewed risks/side effects of Zyprexa and regimen which he understands and agrees to). Outpatient provider Dr. Matheus Hughes reports that patient was doing better on Effexor for a few months but then symptoms returned in it began to get depressed again, panicky and anxious so decision was made to discontinue Effexor and start Prozac. Patient again did okay for a couple weeks on Prozac but then again had a return of symptoms; Dr. Hughes agrees with possible placebo effect. Medication trials that have not worked include Latuda, Vraylar, Abilify, Lexapro, Paxil, Effexor, Prozac. However Dr. Hughes thinks it is possible that Effexor could have been partially helpful. Discussed ECT is an option. He agrees with plan to continue retitration of Effexor and continued Zyprexa which has not been tried and currently seems to be helpful. Hospital course: 07/04 slept last night which was helpful; remains very depressed and anxious. Nystatin helping. Agrees to continue with plan. Discussed treatment plan regarding cross titration of Prozac for Effexor with Dr. Arnett who agrees with plan to avoid serotonin syndrome - Flexeril trial for pain/spasm 07/07 reviewed literature and Prozac 1/2 life 4-6 days, bringing remaining Prozac level equivalent to about 40mg making it safe to increase Effexor reports mood feels like going in right direction....more energy, not so negative, i would just worry a lot and i'm not as much as i was OCD stuff has been really good... not having intrusive thoughts; using coping skills like breathing Discussed physical ailment. Patient complains of chronic lower back pain; says it comes and goes, hurt for a week or so and then resolves on its own but feels worse recently; describes what sounds like sciatica; reviewed x-ray and patient said he will follow up with PCP. 07/08 Patient continues to report his mood is overall better and he likes the medications he is on; feels that Zyprexa may be helpful and he certainly sleeping better. Office Manager Receptionist had discussed case with his outpatient provider Dr. Matheus Hughes and patient agrees with plan to continue with Zyprexa, Effexor titration for now and as an outpatient can consider adding Lamictal; also discussed efficacy of BuSpar and patient is ambivalent whether not it is helpful. Also discussed ECT as a potential option if symptoms continue to breakthrough medication management. Discussed continuing to titrate Effexor and moving towards possible discharge. Discussed anticoagulation, assessment for DVT, lower back pain. Patient understands these issues, medication regimen, risks and will follow up with PCP on discharge. -Mood remains much improved; added suboxone prn which patient found helpful Patient remains with improved mood and feeling ready for discharge; he is optimistic that he will continue to maintain a good mood. No SI; denies OCD symptoms. Patient is not in imminent risk for harm to self or others and appropriate to return to the community for treatment. Medications: eliquis 10mg BID x 7 days, then 5mg BID Discontinue Prozac (patient has been on 80 mg for several months) Continue Effexor ER 75mg daily; will titrate SLOWLY at first, mindful of serotonin syndrome given Prozac's long half-life Continue Zyprexa 5 mg q.h.s.(started on admission) Continue clonazepam 1 mg q.i.d.(changed from 2 mg b.i.d. in the community) continue Ambien but make it a p.r.n. Continue Suboxone Continue gabapentin 800 mg t.i.d. Continue omeprazole continue BuSpar 30 mg b.i.d. nystatin b.i.d. for right axillary area due to likely fungal infection Medical issues while on the unit: On 07/06 Lumbar XRay, IMPRESSION: Severe degenerative disc disease at L2-L3, L3-L4, and L4-L5. On 07/07: Patient then reports right calf became suddenly swollen, from the knee down, starting last week right before admission; he says at home, was laying down for hours and hours, most of the day and night, not moving much due to depression; reports some pain in right calf. Patient has been on current dose of gabapentin for about a year On exam, patients right calf edematous, some mild pain on palpation; left calf also edematous but much less so Ordered ultrasound. 07/07/23 US/US venous duplex LE BI IMPRESSION: No DVT demonstrated in right and left lower extremities from the groin to the knee. The posterior tibial and peroneal veins were not seen bilaterally. Called to discuss results with radiologist Dr. Haney who reports that due to excess edematous fluid she was unable to visualize distal posterior tibial and peroneal veins (the ones in question) which she says is not uncommon; further workup requires risk stratification. Office Manager Receptionist discussed case with Dr. Hampton and hospitalist NANCY Estrella Time spent discussing smoking cessation with patient: 3 to 10 minutes Status at Discharge Functional status at discharge: independent ambulation Overall status at discharge: patient is back to baseline Time Spent with Patient Time attestation: Total time managing care of this patient today ____ minutes. Time spent: Greater than 30 minutes Discharge Plan Discharge Anticipated Discharge Date/Time: 07/11/23 11:30 Patient Disposition: Home, Self-Care Discharge Diagnosis: MDD, recurrent, severe in full remission Referrals: Therapy with Enio CANO [Other] - 07/18/23 1:30 pm [facility] [Other] - 07/13/23 10:30 am Psychiatry with Matheus Hughes [Other] - 07/21/23 5:00 pm (Telehealth) Joanne Chapman CNP [Primary Care Provider] - (OFFICE WILL BE CALLING PT. TO SET UP AN APOINTMENT.) Discharge Medications: New cyclobenzaprine 10 mg Tablet 10 mg PO Q4H PRN (Reason: muscle pain) 30 Days Qty: 120 1RF nicotine 21 mg/24 hr Patch 24 Hour 21 mg transdermal DAILY PRN (Reason: smoking cessation) 28 Days Qty: 28 0RF nicotine (polacrilex) 4 mg gum 4 mg buccal Q2H PRN (Reason: nicotine cravings) 30 Days Qty: 100 1RF clonazepam 1 mg Tablet 1 mg PO QID PRN (Reason: Anxiety) 30 Days Qty: 120 0RF olanzapine 5 mg Tablet See Rx Instructions .ROUTE .COMPLEX 30 Days Qty: 60 1RF Rx Instructions: take 1 tab at bedtime; may take one tab daily as needed for anxiety Mouth Kote Aerosol,[place] 1 spray mucous membrane Q2H PRN (Reason: Dry Mouth) 30 Days Qty: 236 1RF Ear Wax Removal Drops 6.5 % Drops 5 drp otic (ear) left BID 7 Days Qty: 15 0RF Eliquis 5 mg Tablet 5 mg PO BID 30 Days Qty: 60 0RF buprenorphine-naloxone [Suboxone] 8-2 mg film 1 film buccal BID@0900,1500 30 Days Qty: 60 0RF Changed zolpidem 12.5 mg tablet,ext release multiphase 12.5 mg PO BEDTIME PRN (Reason: insomnia) Qty: 30 0RF Discontinued fluoxetine 40 mg capsule 80 mg PO QAM clonazepam 2 mg tablet 2 mg PO BID PRN (Reason: Anxiety) buprenorphine-naloxone 8-2 mg film 0 mg sublingual No Action diclofenac epolamine 1.3 % patch 12 hour 1 patch topical BID Qty: 30 0RF lidocaine [Lidocaine Pain Relief] 4 % Adhesive Patch,Medicated 2 patch transdermal DAILY PRN (Reason: lower back pain) 30 Days Qty: 60 0RF Protocol: Apply to: Apply to: lower back gabapentin 400 mg Capsule 800 mg PO TID Qty: 0 0RF omeprazole 40 mg Capsule,Delayed Release(Dr/Ec) 40 mg PO DAILY@0630 30 Days Qty: 30 0RF trazodone 100 mg Tablet 100 mg PO BEDTIME 30 Days Qty: 30 0RF buspirone 10 mg Tablet 30 mg PO BID Qty: 0 0RF fluticasone propionate 50 mcg/actuation [place],Suspension 1 spray intranasal DAILY Qty: 0 0RF venlafaxine 75 mg Capsule,Extended Release 24hr 225 mg PO DAILY 30 Days Qty: 90 0RF Discharge Orders: Discharge Order (Routine); Ordered 07/11/23 Ordered By: Lamin Gonzalez Diet: Regular diet Activity on Discharge: As tolerated Stand Alone Forms: Patient Portal Discharge page, Community Support Care Plan Goals: Maintain mood and safe behaviors Take medications as prescribed Continue to pursue sobriety Practice coping skills Continue with outpatient providers and reach out to them as needed Health Concerns: Mood stability and behaviors Concern for right calf DVT chronic lower back pain/degenerative disc, lumbar region OFELIA Plan of Treatment: Follow up with your PCP, psychiatric provider and other outpatient providers regarding above concerns Take medications as prescribed Some Med changes: Discontinued Prozac Started Effexor 75 mg daily Started Zyprexa 5mg at bedtime; may take an extra 5mg daily as needed for anxiety Started Eliquis 5mg BID Started extra Suboxone prn for back pain Started Flexeril (cyclobenzaprine) prn for back pain Assessment: Risk assessment at time of discharge:? Patient was interviewed prior to discharge and found to be fully oriented and without any SI or HI. Patient has improved insight and judgment and wants to continue treatment. Patient is not in imminent risk of harm to self or others and has a safety plan that includes presenting to the closest ER or calling 911 if feeling unsafe.? Patient has been observed closely by nursing and unit staff throughout admission; patient has not engaged in any behaviors that suggest dangerousness to self or others and has demonstrated appropriate behaviors and impulse control Discharge Date/Time: 07/11/23 11:22
[2023-07-11] MEDS: Ondansetron ODT 4 MG TAB.RAPDIS TRANSLINGU (10:56)
== END 2023-07-11 11:22 | disposition home or self-care (01) | DRG 885 ==
LOC: HO.ED 07-02 11:50 → HO.PM5 07-02 13:29
PROVIDERS: Physician Assistant; Physician Assistant Medical; Registered Nurse Emergency; Admitting Provider Psychiatry & Neurology Psychiatry; Emergency Provider Emergency Medicine; PCP Nurse Practitioner Primary Care; Visit Provider Psychiatry & Neurology Psychiatry
DX: F33.2 Major depressive disorder, recurrent severe without psychotic features (principal); F11.20 Opioid dependence, uncomplicated; Z68.41 Body mass index [BMI] 40.0-44.9, adult; I82.401 Acute embolism and thrombosis of unspecified deep veins of right lower extremity; E66.01 Morbid (severe) obesity due to excess calories; R45.850 Homicidal ideations; G47.33 Obstructive sleep apnea (adult) (pediatric); F41.0 Panic disorder [episodic paroxysmal anxiety]; F41.1 Generalized anxiety disorder; F42.9 Obsessive-compulsive disorder, unspecified; F17.210 Nicotine dependence, cigarettes, uncomplicated; Z20.822 Contact with and (suspected) exposure to COVID-19; Z23 Encounter for immunization; Z71.6 Tobacco abuse counseling; Z79.51 Long term (current) use of inhaled steroids; Z79.899 Other long term (current) drug therapy
CPT/HCPCS: 0241U; 36415; 72100; 80053; 80307; 81001; 85025; 85610; 85730; 87635; 90471; 90686; 93005; 93970; 99285; S9485

== ENCOUNTER → 2023-07-01 08:11 | Outpatient (BNV) | payer MEDICARE, MEDICAID, SELFPAY | PROVIDERS: Emergency Provider Emergency Medicine; PCP Nurse Practitioner Primary Care; Visit Provider Internal Medicine Cardiovascular Disease | DX: R11.2 Nausea with vomiting, unspecified (principal) | CPT/HCPCS: 93010 ==

== ENCOUNTER → 2023-07-02 13:23 | Outpatient (BNV) | payer MEDICARE, MEDICAID, SELFPAY | PROVIDERS: Admitting Provider Psychiatry & Neurology Psychiatry; Emergency Provider Emergency Medicine; PCP Nurse Practitioner Primary Care; Visit Provider Physician Assistant | DX: M79.89 Other specified soft tissue disorders (principal) | CPT/HCPCS: 99222; 99499 ==

== ENCOUNTER → 2023-07-02 13:23 | Outpatient (BNV) | payer MEDICARE, MEDICAID, SELFPAY | PROVIDERS: Admitting Provider Psychiatry & Neurology Psychiatry; Emergency Provider Emergency Medicine; PCP Nurse Practitioner Primary Care; Visit Provider Psychiatry & Neurology Psychiatry | DX: F33.2 Major depressive disorder, recurrent severe without psychotic features (principal); F42.9 Obsessive-compulsive disorder, unspecified; F41.1 Generalized anxiety disorder; F41.0 Panic disorder [episodic paroxysmal anxiety]; F11.21 Opioid dependence, in remission; G47.33 Obstructive sleep apnea (adult) (pediatric); M79.89 Other specified soft tissue disorders | CPT/HCPCS: 90792; 99231; 99232; 99238 ==

== ENCOUNTER 2023-07-29 14:18 | Inpatient (IN) | payer MEDICARE, MEDICAID, SELFPAY ==
--- NOTE | ~2023-07-29 | US_ITS ---
EXAMINATION: US VENOUS ULTRASOUND WITH DOPPLER LOWER EXTREMITY, RIGHT CLINICAL INFORMATION: Edema. COMPARISON: Lower extremity venous ultrasound dated 07/07/2023. TECHNIQUE: Ultrasound of the deep veins is performed from the hip to the calf with compression sonography and color and pulse Doppler assessment. Spectral analysis with color-flow imaging is performed. FINDINGS: There is normal venous compression and respiratory variation and augmented flow. The visualized common femoral vein, superficial femoral vein, profunda femoral vein, popliteal vein, and the trifurcation region shows no evidence of deep venous thrombosis. There is no significant popliteal fossa cyst. If the patient's symptoms persist, followup ultrasound in 5 days 7 days might be of value to exclude proximal propagation from a non-visualized calf vein. US/US venous duplex LE RT IMPRESSION: No DVT demonstrated in the right lower extremity.
[2023-07-29 14:30] VITALS: BP 115/80; BP 130/85; PULSE 104; PULSE 106; RESP 18; TEMP 36.1; O2SAT 95; O2SAT 97; BMI 39.0
--- NOTE | 2023-07-29 14:37 | ED.GENADULT ---
HPI - General Adult General Chief complaint: Psychiatric Symptoms Stated complaint: R FOOT/CALF PAIN W/DIFF AMB PER EMS Time Seen by Provider: 07/29/23 16:32 Source: patient Mode of arrival: ambulatory Limitations: no limitations History of Present Illness HPI narrative: Patient comes to the emergency room complaining of suicidal ideation and right leg pain. Patient states that he was recently discharged from the psychiatric floor. Patient states that he is still feeling depressed and suicidal. Patient states that he has chronic right leg pain, starts in the lumbar spine and radiates towards the right leg through the back. Patient denies urinary/fecal incontinence/retention. Patient states that he has been diagnosed with slipped discs in the past in the lumbar area. No new falls. Patient states that his legs are a bit swollen but they have been like this for months, no chest pain or shortness of breath. Related Data Home Medications Medication Instructions Recorded Confirmed venlafaxine 75 mg capsule,extended 112.5 mg PO DAILY 07/29/23 07/29/23 release 24 hr Previous Rx's Medication Instructions Recorded apixaban 5 mg tablet (Eliquis) 5 mg PO BID 30 days #60 tabs 07/10/23 artificial saliva (yerba sandra and 1 spray mucous membrane Q2H PRN 07/10/23 lytes) spray (Mouth Kote [place]) Dry Mouth 30 days #236 mL carbamide peroxide 6.5 % ear drops 5 drp otic (ear) left BID 7 days 07/10/23 (Ear Wax Removal Drops) #15 mL clonazepam 1 mg tablet 1 mg PO QID PRN Anxiety 30 days 07/10/23 #120 tabs cyclobenzaprine 10 mg tablet 10 mg PO Q4H PRN muscle pain 30 07/10/23 days #120 tabs lidocaine 4 % topical patch 1 patch transdermal DAILY PRN 07/10/23 (Lidocaine Pain Relief) lower back pain 30 days #30 ea nicotine (polacrilex) 4 mg gum 4 mg buccal Q2H PRN nicotine 07/10/23 cravings 30 days #100 ea nicotine 21 mg/24 hr daily 21 mg transdermal DAILY PRN 07/10/23 transdermal patch smoking cessation 28 days #28 ea olanzapine 5 mg tablet See Rx Instructions .Route 07/10/23 .COMPLEX 30 days #60 tabs zolpidem 12.5 mg tablet,extended 12.5 mg PO BEDTIME PRN insomnia 07/10/23 release,multiphase #30 tabs buprenorphine 8 mg-naloxone 2 mg 1 film buccal BID@0900,1500 30 07/11/23 sublingual film (Suboxone) days #60 ea diclofenac epolamine 1.3 % 1 patch topical BID pain #30 ea 07/29/23 transdermal 12 hour patch Allergies Allergy/AdvReac Type Severity Reaction Status Date / Time No Known Allergies Allergy Verified 06/29/23 12:53 Review of Systems Review of Systems: Constitutional : No Weight loss, No Fever, No Chills, No Night Sweats, No Fatigue, No Malaise ENT/Mouth : No Hearing loss, No Ear Pain, No Nasal Congestion, No Sinus Pain, No Hoarseness, No sore throat, No Rhinorrhea, No Swallowing Difficulty Eyes: No Eye Pain, No Swelling, No Redness, No Foreign Body, No Discharge, No Vision Changes Cardiovascular : No Chest Pain, No SOB, No Dyspnea on Exertion, No Orthopnea, no palpitations Respiratory : No Cough, No Sputum, No Wheezing, No Smoke Exposure, No Dyspnea Gastrointestinal : No Nausea, No Vomiting, No Diarrhea, No Constipation, No abdominal Pain, No Hematochezia, No Melena Genitourinary : no irregular bleeding, No Dysuria, No Urinary Frequency, No Hematuria, No Urinary Incontinence, No Urgency, No Flank Pain, No Urinary Flow Changes, No Hesitancy Musculoskeletal : Complaining of lower extremity pain radiating from the lumbar area down the thigh posteriorly of the right leg, bilateral leg swelling, No joint pain, No Myalgias, No Joint Swelling Skin : No Skin Lesions, No rash Neuro : No Weakness, No Numbness, No Paresthesias, No Loss of Consciousness, No Dizziness, No Headache Psych : No Anxiety/Panic, complaining of depression, suicidal ideation, no homicidal ideation, homeless Heme/Lymph: No Bruising, No Bleeding,No Lymphadenopathy Endocrine : No Polyuria, No Polydipsia, No Temperature Intolerance PMFSH Past Medical History Medical History GI bleed MDD (major depressive disorder), recurrent severe, without psychosis OFELIA (obstructive sleep apnea) Obsessive-compulsive disorder with good or fair insight Social History Social History Household Members: Other Household Members Other:: Roommate [facility] Do you presently have visiting nurse or other home services: No Unable to assess alcohol history related to: Unknown Patient Tobacco Use Status: Current everyday Tobacco user Tobacco use type: Cigarette Cigarette Packs Per Day: 1 Cigarettes Per Day: 20.0 Years Smoked: 20 Smoked in Last 30 Days: No e-Cigarette/Vaping Use: Never Used Second Hand Smoke Exposure: Yes Use of substances other than those prescribed or required for medical reasons: No Substance Use Type: Marijuana Advance Directives: No Advance Directives Information Provided: No Healthcare Proxy: No Guardian: No service: No Sexual orientation: Straight/Heterosexual Physical Exam ED Vital Signs: Vital Signs - 24 hr 07/29/23 14:30 07/29/23 14:59 07/29/23 18:04 Temperature 96.9 F Pulse Rate 106 H Respiratory Rate 18 18 Blood Pressure 115/80 Pulse Oximetry 95 95 Oxygen Delivery Method Nasal Cannula Room Air 07/29/23 20:56 07/29/23 22:45 07/30/23 05:35 Temperature 97.6 F 97.6 F Pulse Rate 70 65 86 Respiratory Rate 16 18 18 Blood Pressure 95/68 129/81 103/65 Pulse Oximetry 93 92 93 Oxygen Delivery Method Room Air Room Air Room Air BMI result Body Mass Index 39.0 Const Other: Appearance: Alert. Oriented X3. No acute distress. Eyes: Pupils equal, round and reactive to light. ENT: Pharynx normal. Neck: Normal inspection. Neck supple. No lymph nodes noted. No crepitus CVS: Normal heart rate and rhythm. Pulses normal. Normal S1 and S2 Respiratory: No respiratory distress. Breath sounds normal. No Wheezing. No rales Abdomen: Soft and nontender. No rigidity. No distention. Skin: Skin warm and dry. Normal skin color. Normal skin turgor. Extremities: Lower extremity +2 nonpitting edema on both feet, dusky feet but warm and normal capillary refill, no pain to palpation in feet or calves Neuro: Oriented X 3. No motor deficit. No sensory deficit. Moving all extremities. No slurred speech. CN 2 through 12 grossly intact Psych: calm, cooperative, normal affect Course Course Course Narrative: RME- 58-year-old male presents for evaluation of right leg swelling. He also complains depression with suicidal ideation. He reports he was just recently discharged from . He has not currently anticoagulated. Plan for medical workup and ultrasound of the right lower extremity. Once medically cleared he can be evaluated by the care team Medications Administered Generic Name Dose Route Start Last Admin Trade Name Freq PRN Reason Stop Dose Admin Apixaban 5 mg 07/29/23 21:00 07/29/23 20:04 Apixaban 5 Mg Tablet PO 5 mg BID MAURISIO Administration Clonazepam 1 mg 07/29/23 18:53 07/30/23 05:50 Clonazepam 1 Mg Tablet PO 1 mg QID PRN Administration Anxiety Cyclobenzaprine HCl 10 mg 07/29/23 18:53 07/30/23 05:50 Cyclobenzaprine Hcl 10 Mg Tablet PO 10 mg Q4H PRN Administration muscle pain Zolpidem Tartrate 5 mg 07/29/23 18:58 07/29/23 20:07 Zolpidem Tartrate 5 Mg Tablet PO 5 mg BEDTIME PRN Administration insomnia Medical Decision Making Medical Decision Making MDM Narrative: -my interpretation of labs: Normal hematology and chemistry, normal LFTs, normal BNP, UA negative for UTI, urine toxicology positive for benzos and THC -my interpretation of ultrasound: No obvious DVT -care team consult pending, medically clear to be seen by the care team 2300 case discussed with care team patient may go home does not need to be admitted as inpatient patient does have chronic right sciatica pain on Suboxone and gabapentin will give him diclofenac sodium for the pain advised to follow up with outpatient with therapist and PCP 23:45 patient started saying that does not feel safe to go home care team decided for patient to to be re-evaluated by psychiatrist in the morning 07/30/2023 07:13 Physician observation continued Patient has been in the emergency department for approximately 16 hours. There were no reported incidents on this patient by overnight nursing staff. Patient is waiting for re-evaluation by care team to determine disposition. Patient will remain in the emergency department Behavioral Health Unit until disposition can be determined or until patient's symptoms improve over time. Differential Diagnosis Differential Diagnoses: The differential diagnosis associated with the presentation includes (Anxiety, depression, homeless, DVT) Admission/Observation Consideration of admission/observation: Escalation of care including admission/observation considered (Patient is in the Behavioral Health pod, on physician observation waiting to be seen by the care team) Lab Data [facility] Lab Attestation statement: I reviewed the patient's lab results. 07/29/23 15:09 07/29/23 15:09 Labs: Lab Results 07/29/23 07/29/23 Range/Units 15:09 16:07 WBC 6.7 (4.8-10.8) X10*3/uL RBC 5.36 (4.60-5.80) X10*6/uL Hgb 15.7 (14.0-18.0) g/dl Hct 48.9 (42.0-52.0) % MCV 91.2 (80.0-98.0) fL MCH 29.3 (27.0-33.0) pg MCHC 32.1 (31.0-36.0) g/dl RDW 14.6 (11.0-16.0) % Plt Count 137 L (160-400) X10*3/uL MPV 12.8 H (9.4-12.4) fL Immature Gran % (Auto) 0.3 (0.0-0.4) % Neut % (Auto) 78.7 H (45-73) % Lymph % (Auto) 13.3 L (20-40) % [place] % (Auto) 5.4 (2-11) % Eos % (Auto) 1.9 (0-4) % Baso % (Auto) 0.4 (0-2) % Lymph # (Auto) 0.9 L (1.2-4.9) X10*3/uL [place] # (Auto) 0.4 (0.1-1.2) X10*3/uL Eos # (Auto) 0.1 (0.0-0.4) X10*3/uL Baso # (Auto) 0.0 (0.0-0.2) X10*3/uL Abs Immat Gran (auto) 0.02 (0.00-0.03) X10*3/uL Absolute Neuts (auto) 5.3 (2.0-8.3) x10*3/uL Absolute Nucleated RBC 0.000 (0.0-0.012) X10*3/uL Nucleated RBC % (auto) 0.0 (0.0-0.2) /100WBC Smear Tech's Comments VERIFIED PT 14.9 H D (11.1-13.3) SEC INR 1.2 H (0.9-1.1) APTT 39.2 H (26.0-36.8) SEC Sodium 142 (135-145) mmol/L Potassium 4.1 (3.3-5.1) mmol/L Chloride 109 H (96-108) mmol/L Carbon Dioxide 26 (22-29) mmol/L Anion Gap 11 L (12-20) BUN 11 (9-16) mg/dL Creatinine 0.76 (0.5-1.4) mg/dL Estim Creat Clear Calc 147.3 Estimated GFR > 60 Random Glucose 73 (60-115) mg/dL Calcium 9.3 (8.4-10.2) mg/dL Total Bilirubin 0.4 (0.0-1.0) mg/dL AST 30 (5-37) U/L ALT 18 (0-40) U/L Alkaline Phosphatase 166 H (39-117) U/L B-Natriuretic Peptide 11 (<100) pg/mL Total Protein 7.2 (6.5-8.0) g/dL Albumin 4.0 (3.5-5.0) g/dL Lipase 7 L (8-78) U/L Urine Color Dark Yellow Urine Appearance Clear Urine pH 6.5 (5.0-9.0) Ur Specific [place] 1.025 (1.005-1.025) Urine Protein Negative (Neg-Trace) mg/dL Urine Glucose (UA) Negative (Negative) mg/dL Urine Ketones Negative (Negative) mg/dL Urine Blood Negative (Negative) Urine Nitrite Negative (Negative) Ur Leukocyte Esterase Negative (Negative) Urine RBC 0-2 (0-2) /HPF Urine WBC 0-5 (0-5) /HPF Ur Squamous Epith Cells 0-2 (0-2) /HPF Urine Bacteria None Seen (None Seen) Hyaline Casts 0-2 (0-2) /LPF Salicylates < 5.0 L (15-30) mg/dL Urine Opiates Screen Not Detected (Not Detect) Urine Fentanyl Screen Not Detected (Not Detect) Acetaminophen < 3 (<30) mcg/mL Ur Barbiturates Screen Not Detected (Not Detect) Ur Phencyclidine Scrn Not Detected (Not Detect) Ur Amphetamines Screen Not Detected (Not Detect) U Benzodiazepines Scrn POSITIVE H (Not Detect) Urine Cocaine Screen Not Detected (Not Detect) U Marijuana (THC) Screen POSITIVE H (Not Detect) Ethyl Alcohol < 10 mg/dL Independent Interpretation I performed an independent interpretation of an: Ultrasound Radiology Impression Discussion of test interpretation with radiology: I have reviewed the radiologist's reading. Radiologist Impression: FINDINGS: There is normal venous compression and respiratory variation and augmented flow. The visualized common femoral vein, superficial femoral vein, profunda femoral vein, popliteal vein, and the trifurcation region shows no evidence of deep venous thrombosis. There is no significant popliteal fossa cyst. If the patient's symptoms persist, followup ultrasound in 5 days 7 days might be of value to exclude proximal propagation from a non-visualized calf vein. US/US venous duplex LE RT IMPRESSION: No DVT demonstrated in the right lower extremity. Critical Care Time Critical Care Time Critical Care Time: Yes Total Critical Care Time: 30 Attestation: I have personally provided critical care time. Time includes review of lab data, radiology results, discussion with consultants, and monitoring for potential decompensation. Intervention performed as documented. Discharge Plan Discharge Clinical Impression: Sciatica, Depression Patient Disposition: Home, Self-Care Instructions: Sciatica (ED), Depression (ED) Additional Instructions: Continue to take your medications as prescribed Diclofenac sodium patch 2 times a day on the affected area as advised Follow with PCP/therapist Prescriptions: New diclofenac epolamine 1.3 % patch 12 hour 1 patch topical BID Qty: 30 0RF No Action cyclobenzaprine 10 mg Tablet 10 mg PO Q4H PRN (Reason: muscle pain) 30 Days Qty: 120 1RF nicotine 21 mg/24 hr Patch 24 Hour 21 mg transdermal DAILY PRN (Reason: smoking cessation) 28 Days Qty: 28 0RF nicotine (polacrilex) 4 mg gum 4 mg buccal Q2H PRN (Reason: nicotine cravings) 30 Days Qty: 100 1RF clonazepam 1 mg Tablet 1 mg PO QID PRN (Reason: Anxiety) 30 Days Qty: 120 0RF olanzapine 5 mg Tablet See Rx Instructions .ROUTE .COMPLEX 30 Days Qty: 60 1RF Rx Instructions: take 1 tab at bedtime; may take one tab daily as needed for anxiety Mouth Kote Aerosol,[place] 1 spray mucous membrane Q2H PRN (Reason: Dry Mouth) 30 Days Qty: 236 1RF Ear Wax Removal Drops 6.5 % Drops 5 drp otic (ear) left BID 7 Days Qty: 15 0RF lidocaine [Lidocaine Pain Relief] 4 % Adhesive Patch,Medicated 1 patch transdermal DAILY PRN (Reason: lower back pain) 30 Days Qty: 30 1RF Protocol: Apply to: Apply to: lower back zolpidem 12.5 mg tablet,ext release multiphase 12.5 mg PO BEDTIME PRN (Reason: insomnia) Qty: 30 0RF Eliquis 5 mg Tablet 5 mg PO BID 30 Days Qty: 60 0RF buprenorphine-naloxone [Suboxone] 8-2 mg film 1 film buccal BID@0900,1500 30 Days Qty: 60 0RF venlafaxine 75 mg capsule,extended release 24hr 112.5 mg PO DAILY Interventions: Hudspeth-Suicide Risk Severity Scale Last Done: 07/30/23 05:45
--- NOTE | 2023-07-29 14:40 | ECG_ITS ---
Test Reason : pain Blood Pressure : / mmHG Vent. Rate : 095 BPM Atrial Rate : 095 BPM P-R Int : 196 ms QRS Dur : 088 ms QT Int : 382 ms P-R-T Axes : 045 058 036 degrees QTc Int : 480 ms Normal sinus rhythm Low voltage QRS Borderline ECG When compared with ECG of 01-JUL-2023 08:11, No significant change was found Referred By: Hugh Leyva Electronically Signed By:STAN OJEDA MD
[2023-07-29 14:59] VITALS: O2SAT 95
[2023-07-29 15:24] LABS: Imm Gran Abs Auto 0.02 X10*3/uL (0.00-0.03); Imm Gran Pct Auto 0.3 % (0.0-0.4); MANUAL DIFF FLAG SCAN; Neutrophils Percent Auto 78.7 % (45-73); SCAN SMEAR FLAG 1
[2023-07-29 15:26] LABS: Basophils Percent Auto 0.4 % (0-2); Eosinophils Absolute Auto 0.1 X10*3/uL (0.0-0.4); Eosinophils Percent Auto 1.9 % (0-4); Hematocrit 48.9 % (42.0-52.0); Hemoglobin 15.7 g/dl (14.0-18.0); Lymphocytes Absolute Auto 0.9 X10*3/uL (1.2-4.9); Lymphocytes Percent Auto 13.3 % (20-40); Mean Corpuscular HGB Conc 32.1 g/dl (31.0-36.0); Mean Corpuscular Hemoglobin 29.3 pg (27.0-33.0); Mean Corpuscular Volume 91.2 fL (80.0-98.0); Mean Platelet Volume 12.8 fL (9.4-12.4); Monocytes Absolute Auto 0.4 X10*3/uL (0.1-1.2); Monocytes Percent Auto 5.4 % (2-11); Neutrophils Absolute Auto 5.3 x10*3/uL (2.0-8.3); Platelet Count 137 X10*3/uL (160-400); Red Blood Count 5.36 X10*6/uL (4.60-5.80); Red Cell Distribution Width 14.6 % (11.0-16.0); White Blood Count 6.7 X10*3/uL (4.8-10.8)
[2023-07-29 15:30] LABS: INTERNATIONAL NORM RATIO 1.2 (0.9-1.1); Prothrombin Time 14.9 SEC (11.1-13.3)
[2023-07-29 15:33] LABS: Partial Thromboplastin Time 39.2 SEC (26.0-36.8)
[2023-07-29 15:37] LABS: PLT ABN DIST 1
[2023-07-29 15:39] LABS: Alanine Aminotransferase 18 U/L (0-40); Alkaline Phosphatase 166 U/L (39-117); Anion Gap 11 (12-20); Aspartate Amino Transferase 30 U/L (5-37); Bilirubin Total 0.4 mg/dL (0.0-1.0); Blood Urea Nitrogen 11 mg/dL (9-16); Calcium 9.3 mg/dL (8.4-10.2); Carbon Dioxide 26 mmol/L (22-29); Chloride 109 mmol/L (96-108); Creatinine Clr Calc Pharmacy 147.3; Estimated Glomerular Filt Rate > 60; Ethanol < 10 mg/dL; Glucose Random 73 mg/dL (60-115); Lipase 7 U/L (8-78); Potassium 4.1 mmol/L (3.3-5.1); Sodium 142 mmol/L (135-145); Total Protein 7.2 g/dL (6.5-8.0)
[2023-07-29 15:44] LABS: B Type Natriuretic Peptide 11 pg/mL (<100)
[2023-07-29 15:55] LABS: Acetaminophen LAB < 3 mcg/mL (<30); Salicylate < 5.0 mg/dL (15-30)
[2023-07-29 16:04] LABS: SLIDE REVIEW VERIFIED
[2023-07-29 16:28] LABS: Amphetamine Screen Urine Not Detected (Not Detect); Barbiturates, Urine Not Detected (Not Detect); Benzodiazepines Screen Urine POSITIVE (Not Detect); Cannabinoid Screen Urine POSITIVE (Not Detect); Cocaine Screen Urine Not Detected (Not Detect); Fentanyl, urine Not Detected (Not Detect); Opiate Screen Urine Not Detected (Not Detect); Phencyclidine Screen Urine Not Detected (Not Detect)
[2023-07-29 16:29] LABS: Appearance Urine Clear; Color Urine Dark Yellow; Glucose Urine UA Negative (Negative); Leukocyte Esterase Urine Negative (Negative); Nitrite Urine Negative (Negative); PH 6.5 (5.0-9.0); Specific Gravity - Urine 1.025 (1.005-1.025); Urine Blood Negative (Negative); Urine Ketones Negative (Negative); Urine Protein Negative (Neg-Trace)
[2023-07-29 16:32] LABS: Bacteria Urine None Seen (None Seen); Hyaline Casts Urine 0-2 /LPF (0-2); RBC Urine 0-2 /HPF (0-2); Squamous Epithelial Cell Urine 0-2 /HPF (0-2); WBC Urine 0-5 /HPF (0-5)
--- NOTE | 2023-07-29 17:57 | PC.NURSE ---
Tommy was BIBA for pain in his R leg. Once he was in the ED he verbalized that he was recently on M5 and was feeling suicidal. Tommy was transferred to the POD after this and was changed over and labs were drawn. Med rec completed with DC paperwork from earlier this month and Tommy who reports only change was an increase in his Venlafaxine. No behavioral concerns. Pleasant and cooperative. US performed on leg and was WNL.
[2023-07-29 18:04] VITALS: RESP 18
[2023-07-29] MEDS: clonazePAM 1 MG TABLET PO (20:04)
[2023-07-29] MEDS: Apixaban 5 MG TABLET PO (20:04)
[2023-07-29] MEDS: Cyclobenzaprine HCl 10 MG TABLET PO (20:04)
[2023-07-29] MEDS: Zolpidem Tartrate 5 MG TABLET PO (20:07)
[2023-07-29 20:56] VITALS: BP 95/68; PULSE 70; RESP 16; O2SAT 93
--- NOTE | 2023-07-29 21:55 | MHC.CARE ---
CARE Team evaluation complete. Pt will be a F/U as a disposition could not be reached. CARE Team recommends ACCS level of care to which Pt expresses ambivalence towards. Collateral calls will be made in the AM to reach an appropriate disposition.
[2023-07-29 22:45] VITALS: BP 129/81; PULSE 65; RESP 18; TEMP 36.4; O2SAT 92
--- NOTE | 2023-07-29 23:54 | PC.NURSE ---
pt moved from pod into ED room 11 so that he can sleep with his cpap machine.
[2023-07-30 05:35] VITALS: BP 103/65; PULSE 86; RESP 18; TEMP 36.4; O2SAT 93
[2023-07-30] MEDS: clonazePAM 1 MG TABLET PO ×4 (05:50→21:00)
[2023-07-30] MEDS: Cyclobenzaprine HCl 10 MG TABLET PO ×4 (05:50→20:59)
[2023-07-30] MEDS: Ondansetron ODT 4 MG TAB.RAPDIS TRANSLINGU (07:48)
--- NOTE | 2023-07-30 07:50 | PC.NURSE ---
Report taken from Silvia MOJICA, assumed care of pt at 0700. Pt A&Ox3 skin pwd respirations even unlabored, endorsing nausea, notified. Medicated per AUG. Awaiting Care team reeval, pt requesting Inpt level of care, unhappy with recommendation of ACCS. Breakfast tray provided to pt. Safety maintained in pod.
--- NOTE | 2023-07-30 08:26 | PC.NURSE ---
Care Team to bedside for reeval.
[2023-07-30] MEDS: Venlafaxine HCl ER 37.5 MG CAP.ER.24H 112.5 MG PO (08:35)
[2023-07-30] MEDS: Buprenorphine/Naloxone 8/2 mg FILM 1 FILM BUCCAL ×2 (08:37→15:34)
[2023-07-30] MEDS: Apixaban 5 MG TABLET PO ×2 (08:41→21:00)
--- NOTE | 2023-07-30 09:18 | PC.NURSE ---
Pt reports positive relief from previously administered zofran. Denies N/V, 100% of breakfast consumed.
--- NOTE | 2023-07-30 11:01 | PC.NURSE ---
Report given to Ashley MOJICA, pt exits my care at this time.
[2023-07-30 12:30] LABS: COVID-19 Test Negative (Negative); IDNOW Serial# 58CA691E
--- NOTE | 2023-07-30 13:44 | PC.NURSE ---
Contact made to Deyanira PROJECT ASSISTANT: plan at this time is to wait to answer medication when up at the floor.
--- NOTE | 2023-07-30 15:39 | PC.NURSE ---
report given to Shama on M3 Rm [id number]
[2023-07-30 17:30] VITALS: BMI 39.1
[2023-07-30 17:32] VITALS: BP 151/86; PULSE 75; RESP 20; TEMP 36.2; O2SAT 95
[2023-07-30] MEDS: Acetaminophen 325 MG TABLET 650 MG PO (17:42)
--- NOTE | 2023-07-30 18:01 | PC.ADMIT ---
Nursing admission note: 58 year old male DX: OCD unspecified, PINA, Panic Disorder, Opioid dependence, in remission. Referred for treatment by CARE team. Signed conditional voluntary for admission. Self presented for swelling in right foot/back pain seeking medication for pain. Upon arrival patient endorsed SI and depression. Patient easily engaged. Good eye contact. Dressed in hospital attire, poor attn to ADL, disheveled, malodorous. Skin check completed with ancillary staff. Patient calm and cooperative with admission process. Reports depressed mood, feeling blah , described as black, no happiness . Affect congruent. Reports avolition, anergia. Decreased self care. Denies SI/HI plan or intent at this time. Denies perceptual disturbances, no overt psychosis or expressed delusions. Thoughts clear, linear and appropriate to topic. Speech normal rate, tone, volume, torito. Patient medical history includes degenerative disc disease, right leg/foot swelling, chronic pain. NKA. COVID negative. Patient TOX screen positive for Benzo, Cannabis. Currently on Opiate replacement therapy. Patient oriented to unit, placed on unit safety checks. See nursing assessment/crisis evaluation for complete details.
[2023-07-30 19:50] VITALS: BP 119/77; PULSE 81; RESP 16; TEMP 36.3; O2SAT 98
[2023-07-30] MEDS: OLANZapine 5 MG TABLET PO (20:59)
[2023-07-30] MEDS: Lidocaine 4 % Patch ADH..PATCH 1 PATCH TRANSDERMA (21:01)
[2023-07-30] MEDS: Zolpidem Tartrate 5 MG TABLET PO (21:09)
[2023-07-31 07:20] VITALS: BP 120/78; PULSE 89; RESP 14; TEMP 36.5; O2SAT 93
[2023-07-31] MEDS: Cyclobenzaprine HCl 10 MG TABLET PO ×4 (08:06→21:22)
[2023-07-31] MEDS: Venlafaxine HCl ER 37.5 MG CAP.ER.24H 112.5 MG PO (08:06)
[2023-07-31] MEDS: Apixaban 5 MG TABLET PO ×2 (08:07→21:21)
[2023-07-31] MEDS: clonazePAM 1 MG TABLET PO ×4 (08:07→21:21)
[2023-07-31] MEDS: Nicotine 21 MG PATCH.TD24 TRANSDERMA (08:10)
[2023-07-31] MEDS: Buprenorphine/Naloxone 8/2 mg FILM 1 FILM BUCCAL ×2 (08:32→15:02)
[2023-07-31 08:59] LABS: Alanine Aminotransferase 24 U/L (0-40); Albumin Level 3.9 g/dL (3.5-5.0); Alkaline Phosphatase 200 U/L (39-117); Anion Gap 11 (12-20); Aspartate Amino Transferase 39 U/L (5-37); Bilirubin Total 0.6 mg/dL (0.0-1.0); Blood Urea Nitrogen 11 mg/dL (9-16); Calcium 9.8 mg/dL (8.4-10.2); Carbon Dioxide 30 mmol/L (22-29); Chloride 102 mmol/L (96-108); Cholesterol 173 mg/dL (<200); Creatinine Clr Calc Pharmacy 149.3; Estimated Glomerular Filt Rate > 60; Glucose Fasting 95 mg/dL (60-99); HDL Cholesterol 49 mg/dL (>40); LDL Cholesterol Calculated 109 mg/dL (<100); Potassium 4.1 mmol/L (3.3-5.1); Sodium 139 mmol/L (135-145); Total Protein 7.2 g/dL (6.5-8.0); Triglycerides 79 mg/dL (<150)
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
[2023-07-31] MEDS: busPIRone HCl 10 MG TABLET 30 MG PO ×2 (12:09→21:21)
[2023-07-31] MEDS: Gabapentin 400 MG CAPSULE 800 MG PO ×3 (12:09→21:21)
[2023-07-31] MEDS: Ondansetron ODT 4 MG TAB.RAPDIS TRANSLINGU (12:10)
[2023-07-31] MEDS: Lidocaine 4 % Patch ADH..PATCH 1 PATCH TRANSDERMA (13:09)
[2023-07-31 17:18] VITALS: BMI 39.1
[2023-07-31 20:00] VITALS: BP 119/80; PULSE 101; RESP 18; TEMP 36; O2SAT 97
[2023-07-31] MEDS: OLANZapine 5 MG TABLET PO (21:21)
[2023-07-31] MEDS: Zolpidem Tartrate 5 MG TABLET PO (21:22)
[2023-07-31] MEDS: Acetaminophen 325 MG TABLET 650 MG PO (21:55)
[2023-08-01] MEDS: traZODone HCL 100 MG TABLET PO ×3 (01:27→21:56)
[2023-08-01] MEDS: Cyclobenzaprine HCl 10 MG TABLET PO ×6 (01:27→22:20)
[2023-08-01] MEDS: clonazePAM 1 MG TABLET PO ×4 (06:03→20:26)
[2023-08-01 07:20] VITALS: BP 130/77; PULSE 92; RESP 16; TEMP 36.8; O2SAT 94
[2023-08-01] MEDS: Apixaban 5 MG TABLET PO ×2 (08:44→20:26)
[2023-08-01] MEDS: Venlafaxine HCl ER 37.5 MG CAP.ER.24H 112.5 MG PO (08:44)
[2023-08-01] MEDS: busPIRone HCl 10 MG TABLET 30 MG PO ×2 (08:44→20:26)
[2023-08-01] MEDS: Gabapentin 400 MG CAPSULE 800 MG PO ×3 (08:44→20:26)
[2023-08-01] MEDS: Buprenorphine/Naloxone 8/2 mg FILM 1 FILM BUCCAL ×2 (08:45→14:04)
[2023-08-01] MEDS: Nicotine 21 MG PATCH.TD24 TRANSDERMA (08:45)
--- NOTE | 2023-08-01 08:58 | HO.PSYCHPN ---
Subjective Subjective Date of Service: 08/01/23 Reason For Visit: crisis Subjective Notes: Conditional Voluntary Interim History: Reviewed with . Pt reports feeling really depressed and anxious ; pt stated, I feel like this because I'm back here again. I want to be home . attending groups, keeping to self. denies SI/HI/VH/AH. Medication Compliance: Yes Side effects from medications: No Attending Groups: Yes Review of Systems Constitutional: Reports as per HPI Eyes: Reports as per HPI Reports as per HPI Cardiovascular: Reports as per HPI Respiratory: Reports as per HPI Gastrointestinal: Reports as per HPI Genitourinary: Reports as per HPI Musculoskeletal: Reports as per HPI Skin/Breast: Reports as per HPI Reports as per HPI Psychiatric: Reports as per HPI Endocrine: Reports as per HPI Hematologic/Lymphatic: Reports as per HPI Allergic/Immunologic: Reports as per HPI Mental Status Exam Mental Status Exam Narrative: Pt is alert and oriented; behavior is calm; dressed in hospital attire; mood is described as really depressed ; eye contact appropriate; Speech is normal rate, volume and prosody and not pressured; thought process is organized and goal directed; Thought content is on tx; otherwise pertinent to relevant topics and without any delusional content, paranoid ideations or grandiosity; denies SI/HI/VH/AH. Diagnostics Vital Signs (24Hr): Vital Signs - 24 hr 07/31/23 20:00 08/01/23 07:20 Temperature 96.8 F 98.2 F Pulse Rate 101 H 92 Respiratory Rate 18 16 Blood Pressure 119/80 130/77 Pulse Oximetry 97 94 Oxygen Delivery Method Room Air Room Air BMI result Body Mass Index 39.1 Labs 07/29/23 15:09 07/31/23 08:26 Labs: Laboratory Results - last 48 hr 07/30/23 07/31/23 11:53 08:26 Sodium 139 Potassium 4.1 Chloride 102 Carbon Dioxide 30 H Anion Gap 11 L BUN 11 Creatinine 0.75 Estim Creat Clear Calc 149.3 Estimated GFR > 60 Fasting Glucose 95 Calcium 9.8 Total Bilirubin 0.6 AST 39 H ALT 24 Alkaline Phosphatase 200 H Total Protein 7.2 Albumin 3.9 Triglycerides 79 Cholesterol 173 LDL Cholesterol, Calc 109 H HDL Cholesterol 49 COVID-19 (MIKE) Negative COVID-19 Clin Com See Note Imaging Radiology Impressions: ITS Impressions Venous Duplex 07/29/23 15:47 IMPRESSION: No DVT demonstrated in the right lower extremity. Medications Medications Current Medications Acetaminophen (Acetaminophen 325 Mg Tablet) 650 mg PO Q6H PRN PRN Reason: Headache/Pain Mild Scale (1-3) Last Admin: 07/31/23 21:55 Dose: 650 mg Al Hydroxide/Mg Hydroxide (Magnesium Hydrox/Alum Hydrox 30 Ml Oral.Susp) 30 ml PO Q6H PRN PRN Reason: Heartburn/Nausea Apixaban (Apixaban 5 Mg Tablet) 5 mg PO BID [facility] Last Admin: 08/01/23 08:44 Dose: 5 mg Buprenorphine/Naloxone (Buprenorphine/Naloxone 8/2 Mg Film) 1 film BUCCAL BID@0900,1500 [facility] Last Admin: 08/01/23 08:45 Dose: 1 film Buspirone HCl (Buspirone Hcl 10 Mg Tablet) 30 mg PO BID [facility] Last Admin: 08/01/23 08:44 Dose: 30 mg Clonazepam (Clonazepam 1 Mg Tablet) 1 mg PO QID PRN PRN Reason: Anxiety Last Admin: 08/01/23 06:03 Dose: 1 mg Cyclobenzaprine HCl (Cyclobenzaprine Hcl 10 Mg Tablet) 10 mg PO Q4H PRN PRN Reason: muscle pain Last Admin: 08/01/23 06:03 Dose: 10 mg Gabapentin (Gabapentin 400 Mg Capsule) 800 mg PO TID [facility] Last Admin: 08/01/23 08:44 Dose: 800 mg Lidocaine (Lidocaine 4 % Patch Adh..Patch) 1 patch TRANSDERMA DAILY PRN; Protocol PRN Reason: lower back pain Last Admin: 07/31/23 13:09 Dose: 1 patch Magnesium Hydroxide (Milk Of Magnesia 30 Ml Oral.Susp) 30 ml PO DAILY PRN PRN Reason: Constipation Nicotine (Nicotine 21 Mg Patch.Td24) 21 mg TRANSDERMA DAILY [facility] Last Admin: 08/01/23 08:45 Dose: 21 mg Nicotine (Nicotine 21 Mg Patch.Td24) 21 mg TRANSDERMA DAILY PRN PRN Reason: smoking cessation Nicotine Polacrilex (Nicotine Polacrilex 2 Mg Gum) 4 mg BUCCAL Q2H PRN PRN Reason: nicotine cravings Olanzapine (Olanzapine 5 Mg Tablet) 5 mg PO BEDTIME [facility] Last Admin: 07/31/23 21:21 Dose: 5 mg Ondansetron HCl (Ondansetron Odt 4 Mg Tab.Rapdis) 4 mg TRANSLINGU Q6H PRN PRN Reason: Nausea and Vomiting Last Admin: 07/31/23 12:10 Dose: 4 mg Saliva Substitute (Dry Mouth [place] 60 Ml [place]) 1 spray MUCOUS MEM Q2H PRN PRN Reason: Dry Mouth Trazodone HCl (Trazodone Hcl 100 Mg Tablet) 100 mg PO BEDTIME [facility] Last Admin: 08/01/23 01:27 Dose: 100 mg Venlafaxine HCl (Venlafaxine Hcl Er 37.5 Mg Cap.Er.24h) 112.5 mg PO DAILY [facility] Last Admin: 08/01/23 08:44 Dose: 112.5 mg Zolpidem Tartrate (Zolpidem Tartrate 5 Mg Tablet) 5 mg PO BEDTIME PRN PRN Reason: insomnia Last Admin: 07/31/23 21:22 Dose: 5 mg Allergies Allergies Allergy/AdvReac Type Severity Reaction Status Date / Time No Known Allergies Allergy Verified 06/29/23 12:53 Assessment & Plan Assessment & Plan (1) MDD (major depressive disorder), recurrent severe, without psychosis: Status: Acute Code(s): F33.2 - Major depressive disorder, recurrent severe without psychotic features (2) PINA (generalized anxiety disorder): Status: Acute Code(s): F41.1 - Generalized anxiety disorder (3) Obsessive-compulsive disorder with good or fair insight: Status: Acute Code(s): F42.9 - Obsessive-compulsive disorder, unspecified (4) Opioid use disorder, moderate, in early remission, on maintenance therapy: Status: Acute Code(s): F11.21 - Opioid dependence, in remission Plan Patient is a 58 year old male with hx of MDD, PINA, OCD and opioid use disorder who was recently on M5 (06/2023) who presented to [facility] [place] d/t swelling in his right foot and back pain, while being treated he endorsed SI and depression. Plan: CV 15 minute safety checks Continue home medications encourage groups possible referral to PHP? discharge planning 08/01: Pt reports feeling really depressed and anxious ; pt stated, I feel like this because I'm back here again. I want to be home . attending groups, keeping to self. denies SI/HI/VH/AH. Patient educated on: diagnosis, medication risk/benefits and therapeutic strategies Informed Consent: understands Reason for continued inpatient stay Substantial Risk for: med/psych decompensation Time Spent With Patient Time: Total time managing care of this patient today _20___ minutes.
[2023-08-01] MEDS: Lidocaine 4 % Patch ADH..PATCH 1 PATCH TRANSDERMA (14:04)
[2023-08-01] MEDS: Acetaminophen 325 MG TABLET 650 MG PO (18:20)
[2023-08-01 20:20] VITALS: BP 118/72; PULSE 88; RESP 18; TEMP 36.1; O2SAT 94
[2023-08-01] MEDS: OLANZapine 5 MG TABLET PO (20:26)
[2023-08-01] MEDS: Zolpidem Tartrate 5 MG TABLET PO (20:26)
[2023-08-02] MEDS: clonazePAM 1 MG TABLET PO ×5 (06:37→20:14)
[2023-08-02] MEDS: Omeprazole 40 MG CAPSULE.DR PO (06:37)
[2023-08-02] MEDS: Cyclobenzaprine HCl 10 MG TABLET PO ×4 (06:38→18:56)
[2023-08-02 07:15] VITALS: BP 124/82; PULSE 101; RESP 16; TEMP 36.1; O2SAT 94
[2023-08-02] MEDS: busPIRone HCl 10 MG TABLET 30 MG PO ×2 (08:19→20:14)
[2023-08-02] MEDS: Gabapentin 400 MG CAPSULE 800 MG PO ×3 (08:20→20:14)
[2023-08-02] MEDS: Apixaban 5 MG TABLET PO ×2 (08:20→20:14)
[2023-08-02] MEDS: Venlafaxine HCl ER 37.5 MG CAP.ER.24H 112.5 MG PO (08:20)
[2023-08-02] MEDS: Nicotine 21 MG PATCH.TD24 TRANSDERMA (08:21)
[2023-08-02] MEDS: Fluticasone Propionate Nasal 16 GM SPRAY 1 SPRAY NOSTRIL-B (08:22)
[2023-08-02] MEDS: Buprenorphine/Naloxone 8/2 mg FILM 1 FILM BUCCAL ×2 (08:23→14:58)
[2023-08-02] MEDS: Lidocaine 4 % Patch ADH..PATCH 1 PATCH TRANSDERMA (08:24)
--- NOTE | 2023-08-02 16:42 | HO.PSYCHPN ---
Subjective Subjective Date of Service: 08/02/23 Reason For Visit: crisis Interim History: calm, cooperative. asking for effexor dosing increase, agrees to increase to 150 mg as of tomorrow. c/o right leg swelling not improving. agrees to trial of tylenol 975 each dose for associated pain. per staff, dep 8, a little anxiety. using lots of PRNs. Mental Status Exam Mental Status Exam Narrative: Pt is alert and oriented; behavior is calm; dressed in hospital attire, poor hygiene; eye contact appropriate; Speech is normal rate, volume and prosody and not pressured; thought process is organized and goal directed; Thought content is on tx; otherwise pertinent to relevant topics and without any delusional content, paranoid ideations or grandiosity; denies SI/HI/VH/AH. Diagnostics Vital Signs (24Hr): Vital Signs - 24 hr 08/01/23 20:20 08/02/23 07:15 Temperature 97.0 F 96.9 F Pulse Rate 88 101 H Respiratory Rate 18 16 Blood Pressure 118/72 124/82 Pulse Oximetry 94 94 Oxygen Delivery Method Room Air Room Air BMI result Body Mass Index 39.1 Labs 07/29/23 15:09 07/31/23 08:26 Imaging Radiology Impressions: ITS Impressions Venous Duplex 07/29/23 15:47 IMPRESSION: No DVT demonstrated in the right lower extremity. Medications Medications Current Medications Acetaminophen (Acetaminophen 325 Mg Tablet) 975 mg PO Q6H PRN PRN Reason: Headache/Pain Mild Scale (1-3) Al Hydroxide/Mg Hydroxide (Magnesium Hydrox/Alum Hydrox 30 Ml Oral.Susp) 30 ml PO Q6H PRN PRN Reason: Heartburn/Nausea Apixaban (Apixaban 5 Mg Tablet) 5 mg PO BID [facility] Last Admin: 08/02/23 08:20 Dose: 5 mg Buprenorphine/Naloxone (Buprenorphine/Naloxone 8/2 Mg Film) 1 film BUCCAL BID@0900,1500 [facility] Last Admin: 08/02/23 14:58 Dose: 1 film Buspirone HCl (Buspirone Hcl 10 Mg Tablet) 30 mg PO BID [facility] Last Admin: 08/02/23 08:19 Dose: 30 mg Clonazepam (Clonazepam 1 Mg Tablet) 1 mg PO QID PRN PRN Reason: Anxiety Last Admin: 08/02/23 14:57 Dose: 1 mg Cyclobenzaprine HCl (Cyclobenzaprine Hcl 10 Mg Tablet) 10 mg PO Q4H PRN PRN Reason: muscle pain Last Admin: 08/02/23 14:57 Dose: 10 mg Fluticasone Propionate (Fluticasone Propionate Nasal 16 Gm Powderly) 1 spray NOSTRIL-B DAILY [facility] Last Admin: 08/02/23 08:22 Dose: 1 spray Gabapentin (Gabapentin 400 Mg Capsule) 800 mg PO TID [facility] Last Admin: 08/02/23 14:56 Dose: 800 mg Lidocaine (Lidocaine 4 % Patch Adh..Patch) 1 patch TRANSDERMA DAILY PRN; Protocol PRN Reason: lower back pain Last Admin: 08/02/23 08:24 Dose: 1 patch Magnesium Hydroxide (Milk Of Magnesia 30 Ml Oral.Susp) 30 ml PO DAILY PRN PRN Reason: Constipation Nicotine (Nicotine 21 Mg Patch.Td24) 21 mg TRANSDERMA DAILY [facility] Last Admin: 08/02/23 08:21 Dose: 21 mg Nicotine Polacrilex (Nicotine Polacrilex 2 Mg Gum) 4 mg BUCCAL Q2H PRN PRN Reason: nicotine cravings Olanzapine (Olanzapine 5 Mg Tablet) 5 mg PO BEDTIME [facility] Last Admin: 08/01/23 20:26 Dose: 5 mg Omeprazole (Omeprazole 40 Mg Capsule.Dr) 40 mg PO DAILY@0630 [facility] Last Admin: 08/02/23 06:37 Dose: 40 mg Ondansetron HCl (Ondansetron Odt 4 Mg Tab.Rapdis) 4 mg TRANSLINGU Q6H PRN PRN Reason: Nausea and Vomiting Last Admin: 07/31/23 12:10 Dose: 4 mg Saliva Substitute (Dry Mouth [place] 60 Ml [place]) 1 spray MUCOUS MEM Q2H PRN PRN Reason: Dry Mouth Trazodone HCl (Trazodone Hcl 100 Mg Tablet) 100 mg PO BEDTIME [facility] Last Admin: 08/01/23 21:56 Dose: 100 mg Venlafaxine HCl (Venlafaxine Hcl Er 150 Mg Cap.Er.24h) 150 mg PO DAILY [facility] Zolpidem Tartrate (Zolpidem Tartrate 5 Mg Tablet) 5 mg PO BEDTIME PRN PRN Reason: insomnia Last Admin: 08/01/23 20:26 Dose: 5 mg Allergies Allergies Allergy/AdvReac Type Severity Reaction Status Date / Time No Known Allergies Allergy Verified 06/29/23 12:53 Assessment & Plan Assessment & Plan (1) MDD (major depressive disorder), recurrent severe, without psychosis: Status: Acute Code(s): F33.2 - Major depressive disorder, recurrent severe without psychotic features (2) PINA (generalized anxiety disorder): Status: Acute Code(s): F41.1 - Generalized anxiety disorder (3) Obsessive-compulsive disorder with good or fair insight: Status: Acute Code(s): F42.9 - Obsessive-compulsive disorder, unspecified (4) Opioid use disorder, moderate, in early remission, on maintenance therapy: Status: Acute Code(s): F11.21 - Opioid dependence, in remission Plan Patient is a 58 year old male with hx of MDD, PINA, OCD and opioid use disorder who was recently on M5 (06/2023) who presented to [facility] d/t swelling in his right foot and back pain, while being treated he endorsed SI and depression. Plan: CV 15 minute safety checks Continue home medications encourage groups possible referral to PHP? discharge planning 08/01: Pt reports feeling really depressed and anxious ; pt stated, I feel like this because I'm back here again. I want to be home . attending groups, keeping to self. denies SI/HI/VH/AH. 2/3: increase effexor to 150 mg daily as of tomorrow, per pt request. increase tylenol PRN to 975 each for pain. otherwise continue current mgmt. reports leg swelling has not improved. Reason for continued inpatient stay Substantial Risk for: inability to function and rapid decompensation Time Spent With Patient Time: Total time managing care of this patient today ____ minutes.
[2023-08-02] MEDS: Acetaminophen 325 MG TABLET 975 MG PO (18:56)
[2023-08-02 20:13] VITALS: BP 129/61; PULSE 99; RESP 14; TEMP 36.6; O2SAT 99
[2023-08-02] MEDS: OLANZapine 5 MG TABLET PO (20:14)
[2023-08-02] MEDS: traZODone HCL 100 MG TABLET PO ×2 (20:14→21:58)
[2023-08-02] MEDS: Zolpidem Tartrate 5 MG TABLET PO (20:14)
[2023-08-03] MEDS: Cyclobenzaprine HCl 10 MG TABLET PO ×6 (01:05→22:38)
[2023-08-03] MEDS: Acetaminophen 325 MG TABLET 975 MG PO ×3 (01:05→13:07)
[2023-08-03] MEDS: clonazePAM 1 MG TABLET PO ×4 (05:55→18:07)
[2023-08-03] MEDS: Omeprazole 40 MG CAPSULE.DR PO (05:56)
[2023-08-03 06:00] VITALS: BP 115/82; PULSE 106; RESP 18; TEMP 36.3; O2SAT 93
[2023-08-03] MEDS: Nicotine 21 MG PATCH.TD24 TRANSDERMA (08:24)
[2023-08-03] MEDS: Gabapentin 400 MG CAPSULE 800 MG PO ×3 (08:25→20:25)
[2023-08-03] MEDS: Apixaban 5 MG TABLET PO ×2 (08:26→20:26)
[2023-08-03] MEDS: Venlafaxine HCl ER 150 MG CAP.ER.24H PO (08:26)
[2023-08-03] MEDS: busPIRone HCl 10 MG TABLET 30 MG PO ×2 (08:26→20:25)
[2023-08-03] MEDS: Buprenorphine/Naloxone 8/2 mg FILM 1 FILM BUCCAL ×2 (08:27→14:06)
[2023-08-03] MEDS: Fluticasone Propionate Nasal 16 GM SPRAY 1 SPRAY NOSTRIL-B (08:27)
[2023-08-03] MEDS: Lidocaine 4 % Patch ADH..PATCH 1 PATCH TRANSDERMA (08:30)
--- NOTE | 2023-08-03 18:40 | P.PNPSI_ITS ---
Subjective Subjective Date of Service: 08/03/23 Reason For Visit: crisis Interim History: calm, cooperative. having trouble sleeping, which he attributes to situational factors. agrees to not make any med changes for today. per staff, slept 4-5 hours. nocturia x 1. c/o 8/10 back pain. Mental Status Exam Mental Status Exam Narrative: Pt is alert and oriented; behavior is calm; dressed in hospital attire, poor hygiene; eye contact appropriate; Speech is normal rate, volume and prosody and not pressured; thought process is organized and goal directed; Thought content is on tx; otherwise pertinent to relevant topics and without any delusional content, paranoid ideations or grandiosity; no SI/HI/VH/AH expressed. Diagnostics Vital Signs (24Hr): Vital Signs - 24 hr 08/02/23 20:13 08/03/23 06:00 Temperature 97.8 F 97.3 F Pulse Rate 99 106 H Respiratory Rate 14 18 Blood Pressure 129/61 115/82 Pulse Oximetry 99 93 Oxygen Delivery Method Room Air Room Air BMI result Body Mass Index 39.1 Labs 07/29/23 15:09 07/31/23 08:26 Imaging Radiology Impressions: ITS Impressions Venous Duplex 07/29/23 15:47 IMPRESSION: No DVT demonstrated in the right lower extremity. Medications Medications Current Medications Acetaminophen (Acetaminophen 325 Mg Tablet) 975 mg PO Q6H PRN PRN Reason: Headache/Pain Mild Scale (1-3) Last Admin: 08/03/23 13:07 Dose: 975 mg Al Hydroxide/Mg Hydroxide (Magnesium Hydrox/Alum Hydrox 30 Ml Oral.Susp) 30 ml PO Q6H PRN PRN Reason: Heartburn/Nausea Apixaban (Apixaban 5 Mg Tablet) 5 mg PO BID [facility] Last Admin: 08/03/23 08:26 Dose: 5 mg Buprenorphine/Naloxone (Buprenorphine/Naloxone 8/2 Mg Film) 1 film BUCCAL BID@0900,1500 [facility] Last Admin: 08/03/23 14:06 Dose: 1 film Buspirone HCl (Buspirone Hcl 10 Mg Tablet) 30 mg PO BID [facility] Last Admin: 08/03/23 08:26 Dose: 30 mg Clonazepam (Clonazepam 1 Mg Tablet) 1 mg PO QID PRN PRN Reason: Anxiety Last Admin: 08/03/23 18:07 Dose: 1 mg Cyclobenzaprine HCl (Cyclobenzaprine Hcl 10 Mg Tablet) 10 mg PO Q4H PRN PRN Reason: muscle pain Last Admin: 08/03/23 18:07 Dose: 10 mg Fluticasone Propionate (Fluticasone Propionate Nasal 16 Gm [place]) 1 spray NOSTRIL-B DAILY [facility] Last Admin: 08/03/23 08:27 Dose: 1 spray Gabapentin (Gabapentin 400 Mg Capsule) 800 mg PO TID [facility] Last Admin: 08/03/23 14:05 Dose: 800 mg Lidocaine (Lidocaine 4 % Patch Adh..Patch) 1 patch TRANSDERMA DAILY PRN; Protocol PRN Reason: lower back pain Last Admin: 08/03/23 08:30 Dose: 1 patch Magnesium Hydroxide (Milk Of Magnesia 30 Ml Oral.Susp) 30 ml PO DAILY PRN PRN Reason: Constipation Nicotine (Nicotine 21 Mg Patch.Td24) 21 mg TRANSDERMA DAILY [facility] Last Admin: 08/03/23 08:24 Dose: 21 mg Nicotine Polacrilex (Nicotine Polacrilex 2 Mg Gum) 4 mg BUCCAL Q2H PRN PRN Reason: nicotine cravings Olanzapine (Olanzapine 5 Mg Tablet) 5 mg PO BEDTIME [facility] Last Admin: 08/02/23 20:14 Dose: 5 mg Omeprazole (Omeprazole 40 Mg Capsule.Dr) 40 mg PO DAILY@0630 [facility] Last Admin: 08/03/23 05:56 Dose: 40 mg Ondansetron HCl (Ondansetron Odt 4 Mg Tab.Rapdis) 4 mg TRANSLINGU Q6H PRN PRN Reason: Nausea and Vomiting Last Admin: 07/31/23 12:10 Dose: 4 mg Saliva Substitute (Dry Mouth [place] 60 Ml [place]) 1 spray MUCOUS MEM Q2H PRN PRN Reason: Dry Mouth Trazodone HCl (Trazodone Hcl 100 Mg Tablet) 100 mg PO BEDTIME [facility] Last Admin: 08/02/23 21:58 Dose: 100 mg Venlafaxine HCl (Venlafaxine Hcl Er 150 Mg Cap.Er.24h) 150 mg PO DAILY [facility] Last Admin: 08/03/23 08:26 Dose: 150 mg Zolpidem Tartrate (Zolpidem Tartrate 5 Mg Tablet) 5 mg PO BEDTIME PRN PRN Reason: insomnia Last Admin: 08/02/23 20:14 Dose: 5 mg Allergies Allergies Allergy/AdvReac Type Severity Reaction Status Date / Time No Known Allergies Allergy Verified 06/29/23 12:53 Assessment & Plan Assessment & Plan (1) MDD (major depressive disorder), recurrent severe, without psychosis: Status: Acute Code(s): F33.2 - Major depressive disorder, recurrent severe without psychotic features (2) PINA (generalized anxiety disorder): Status: Acute Code(s): F41.1 - Generalized anxiety disorder (3) Obsessive-compulsive disorder with good or fair insight: Status: Acute Code(s): F42.9 - Obsessive-compulsive disorder, unspecified (4) Opioid use disorder, moderate, in early remission, on maintenance therapy: Status: Acute Code(s): F11.21 - Opioid dependence, in remission Plan Patient is a 58 year old male with hx of MDD, PINA, OCD and opioid use disorder who was recently on M5 (06/2023) who presented to [facility] ER d/t swelling in his right foot and back pain, while being treated he endorsed SI and depression. Plan: CV 15 minute safety checks Continue home medications encourage groups possible referral to PHP? discharge planning 08/01: Pt reports feeling really depressed and anxious ; pt stated, I feel like this because I'm back here again. I want to be home . attending groups, keeping to self. denies SI/HI/VH/AH. 2/3: increase effexor to 150 mg daily as of tomorrow, per pt request. increase tylenol PRN to 975 each for pain. otherwise continue current mgmt. reports leg swelling has not improved. 08/03: continue current mgmt. stable. Reason for continued inpatient stay Substantial Risk for: inability to function and rapid decompensation Time Spent With Patient Time: Total time managing care of this patient today ____ minutes.
[2023-08-03 19:00] VITALS: BP 122/89; PULSE 79; RESP 19; TEMP 35.9; O2SAT 95
[2023-08-03] MEDS: OLANZapine 5 MG TABLET PO (20:26)
[2023-08-03] MEDS: traZODone HCL 100 MG TABLET PO ×2 (21:12→22:38)
[2023-08-03] MEDS: Zolpidem Tartrate 5 MG TABLET PO (21:12)
[2023-08-04] MEDS: Acetaminophen 325 MG TABLET 975 MG PO ×3 (02:06→21:06)
[2023-08-04] MEDS: clonazePAM 1 MG TABLET PO ×4 (02:06→21:09)
[2023-08-04] MEDS: Lidocaine 4 % Patch ADH..PATCH 1 PATCH TRANSDERMA (06:00)
[2023-08-04] MEDS: Cyclobenzaprine HCl 10 MG TABLET PO ×4 (06:00→18:42)
[2023-08-04] MEDS: Omeprazole 40 MG CAPSULE.DR PO (06:00)
[2023-08-04 07:20] VITALS: BP 116/84; PULSE 110; RESP 16; TEMP 36.4; O2SAT 95
[2023-08-04] MEDS: Fluticasone Propionate Nasal 16 GM SPRAY 1 SPRAY NOSTRIL-B (08:28)
[2023-08-04] MEDS: Nicotine 21 MG PATCH.TD24 TRANSDERMA (08:28)
[2023-08-04] MEDS: busPIRone HCl 10 MG TABLET 30 MG PO ×3 (08:30→21:05)
[2023-08-04] MEDS: Gabapentin 400 MG CAPSULE 800 MG PO ×3 (08:31→21:07)
[2023-08-04] MEDS: Apixaban 5 MG TABLET PO ×2 (08:32→21:06)
[2023-08-04] MEDS: Venlafaxine HCl ER 150 MG CAP.ER.24H PO (08:33)
[2023-08-04] MEDS: Buprenorphine/Naloxone 8/2 mg FILM 1 FILM BUCCAL ×2 (09:09→14:42)
--- NOTE | 2023-08-04 15:17 | HO.PSYCHPN ---
Subjective Subjective Date of Service: 08/04/23 Reason For Visit: crisis Interim History: calm, cooperative. interested in further titration of effexor XR. planning to discharge . mood continues improved. just pains bothering him. per staff, focused on pain mgmt. 1+ pitting edema in legs B/L. taking lots of PRNs. 7/10 back pain. + groups and meals. Mental Status Exam Mental Status Exam Narrative: Pt is alert and oriented; behavior is calm; dressed in hospital attire, poor hygiene; eye contact appropriate; Speech is normal rate, volume and prosody and not pressured; thought process is organized and goal directed; Thought content is on tx; otherwise pertinent to relevant topics and without any delusional content, paranoid ideations or grandiosity; no SI/HI/VH/AH expressed. Diagnostics Vital Signs (24Hr): Vital Signs - 24 hr 08/03/23 19:00 08/04/23 07:20 Temperature 96.6 F L 97.5 F Pulse Rate 79 110 H Respiratory Rate 19 16 Blood Pressure 122/89 116/84 Pulse Oximetry 95 95 Oxygen Delivery Method Room Air Room Air BMI result Body Mass Index 39.1 Labs 07/29/23 15:09 07/31/23 08:26 Imaging Radiology Impressions: ITS Impressions Venous Duplex 07/29/23 15:47 IMPRESSION: No DVT demonstrated in the right lower extremity. Medications Medications Current Medications Acetaminophen (Acetaminophen 325 Mg Tablet) 975 mg PO Q6H PRN PRN Reason: Headache/Pain Mild Scale (1-3) Last Admin: 08/04/23 08:42 Dose: 975 mg Al Hydroxide/Mg Hydroxide (Magnesium Hydrox/Alum Hydrox 30 Ml Oral.Susp) 30 ml PO Q6H PRN PRN Reason: Heartburn/Nausea Apixaban (Apixaban 5 Mg Tablet) 5 mg PO BID [facility] Last Admin: 08/04/23 08:32 Dose: 5 mg Buprenorphine/Naloxone (Buprenorphine/Naloxone 8/2 Mg Film) 1 film BUCCAL BID@0900,1500 [facility] Last Admin: 08/04/23 14:42 Dose: 1 film Buspirone HCl (Buspirone Hcl 10 Mg Tablet) 30 mg PO BID [facility] Last Admin: 08/04/23 08:41 Dose: 10 mg Clonazepam (Clonazepam 1 Mg Tablet) 1 mg PO QID PRN PRN Reason: Anxiety Last Admin: 08/04/23 14:42 Dose: 1 mg Cyclobenzaprine HCl (Cyclobenzaprine Hcl 10 Mg Tablet) 10 mg PO Q4H PRN PRN Reason: muscle pain Last Admin: 08/04/23 14:41 Dose: 10 mg Fluticasone Propionate (Fluticasone Propionate Nasal 16 Gm [place]) 1 spray NOSTRIL-B DAILY [facility] Last Admin: 08/04/23 08:28 Dose: 1 spray Gabapentin (Gabapentin 400 Mg Capsule) 800 mg PO TID [facility] Last Admin: 08/04/23 14:42 Dose: 800 mg Lidocaine (Lidocaine 4 % Patch Adh..Patch) 1 patch TRANSDERMA DAILY PRN; Protocol PRN Reason: lower back pain Last Admin: 08/04/23 06:00 Dose: 1 patch Magnesium Hydroxide (Milk Of Magnesia 30 Ml Oral.Susp) 30 ml PO DAILY PRN PRN Reason: Constipation Nicotine (Nicotine 21 Mg Patch.Td24) 21 mg TRANSDERMA DAILY [facility] Last Admin: 08/04/23 08:28 Dose: 21 mg Nicotine Polacrilex (Nicotine Polacrilex 2 Mg Gum) 4 mg BUCCAL Q2H PRN PRN Reason: nicotine cravings Olanzapine (Olanzapine 5 Mg Tablet) 5 mg PO BEDTIME [facility] Last Admin: 08/03/23 20:26 Dose: 5 mg Omeprazole (Omeprazole 40 Mg Capsule.Dr) 40 mg PO DAILY@0630 [facility] Last Admin: 08/04/23 06:00 Dose: 40 mg Ondansetron HCl (Ondansetron Odt 4 Mg Tab.Rapdis) 4 mg TRANSLINGU Q6H PRN PRN Reason: Nausea and Vomiting Last Admin: 07/31/23 12:10 Dose: 4 mg Saliva Substitute (Dry Mouth [place] 60 Ml [place]) 1 spray MUCOUS MEM Q2H PRN PRN Reason: Dry Mouth Trazodone HCl (Trazodone Hcl 100 Mg Tablet) 100 mg PO BEDTIME [facility] Last Admin: 08/03/23 22:38 Dose: 100 mg Venlafaxine HCl (Venlafaxine Hcl Er 150 Mg Cap.Er.24h) 150 mg PO DAILY [facility] Last Admin: 08/04/23 08:33 Dose: 150 mg Zolpidem Tartrate (Zolpidem Tartrate 5 Mg Tablet) 5 mg PO BEDTIME PRN PRN Reason: insomnia Last Admin: 08/03/23 21:12 Dose: 5 mg Allergies Allergies Allergy/AdvReac Type Severity Reaction Status Date / Time No Known Allergies Allergy Verified 06/29/23 12:53 Assessment & Plan Assessment & Plan (1) MDD (major depressive disorder), recurrent severe, without psychosis: Status: Acute Code(s): F33.2 - Major depressive disorder, recurrent severe without psychotic features (2) PINA (generalized anxiety disorder): Status: Acute Code(s): F41.1 - Generalized anxiety disorder (3) Obsessive-compulsive disorder with good or fair insight: Status: Acute Code(s): F42.9 - Obsessive-compulsive disorder, unspecified (4) Opioid use disorder, moderate, in early remission, on maintenance therapy: Status: Acute Code(s): F11.21 - Opioid dependence, in remission Plan Patient is a 58 year old male with hx of MDD, PINA, OCD and opioid use disorder who was recently on M5 (06/2023) who presented to [facility] ER d/t swelling in his right foot and back pain, while being treated he endorsed SI and depression. Plan: CV 15 minute safety checks Continue home medications encourage groups possible referral to PHP? discharge planning 08/01: Pt reports feeling really depressed and anxious ; pt stated, I feel like this because I'm back here again. I want to be home . attending groups, keeping to self. denies SI/HI/VH/AH. 2: increase effexor to 150 mg daily as of tomorrow, per pt request. increase tylenol PRN to 975 each for pain. otherwise continue current mgmt. reports leg swelling has not improved. 08/03: continue current mgmt. stable. 08/04: increase effexor XR to 187.5 as of tomorrow. otherwise continue current mgmt. mood improved. chronic pain remains. ordered TEDs for B/L LE 1+ pitting edema. Reason for continued inpatient stay Substantial Risk for: rapid decompensation Time Spent With Patient Time: Total time managing care of this patient today ____ minutes.
[2023-08-04 18:00] VITALS: BP 144/92; PULSE 94; RESP 16; TEMP 35.8; O2SAT 95
[2023-08-04] MEDS: traZODone HCL 100 MG TABLET PO (21:04)
[2023-08-04] MEDS: OLANZapine 5 MG TABLET PO (21:04)
[2023-08-04] MEDS: Zolpidem Tartrate 5 MG TABLET PO (22:10)
[2023-08-04 23:45] VITALS: BP 144/92; PULSE 99; RESP 18; O2SAT 98
[2023-08-05] MEDS: Cyclobenzaprine HCl 10 MG TABLET PO ×6 (00:13→20:35)
--- NOTE | 2023-08-05 00:18 | PC.NURSE ---
At 2340 Tommy was in the bathroom. Patient reported he got up and felt lightheaded and grabbed onto the sink to present himself from falling down. Patient came out of the bathroom and sat at the desk. Vital signs were done and patient reported after sitting for a few minutes the lightheadedness had subsided. Patient did report that when he grabbed onto the sink he did twist his body and that pulled on his back. Patient reporting back pain 9/10. Patient was given flexiril PO prn to help with the pain. Patient reported that he did not fall and he did not hit his head in any way.
[2023-08-05] MEDS: clonazePAM 1 MG TABLET PO ×5 (04:15→21:47)
[2023-08-05] MEDS: Lidocaine 4 % Patch ADH..PATCH 1 PATCH TRANSDERMA ×2 (04:15→11:28)
[2023-08-05] MEDS: Acetaminophen 325 MG TABLET 975 MG PO ×2 (04:15→17:34)
[2023-08-05] MEDS: Omeprazole 40 MG CAPSULE.DR PO (05:10)
[2023-08-05 07:00] VITALS: BP 131/88; PULSE 101; RESP 18; TEMP 36.4; O2SAT 94
[2023-08-05] MEDS: Nicotine 21 MG PATCH.TD24 TRANSDERMA (08:20)
[2023-08-05] MEDS: busPIRone HCl 10 MG TABLET 30 MG PO ×2 (08:21→20:34)
[2023-08-05] MEDS: Gabapentin 400 MG CAPSULE 800 MG PO ×3 (08:22→20:35)
[2023-08-05] MEDS: Apixaban 5 MG TABLET PO ×2 (08:22→20:35)
[2023-08-05] MEDS: Venlafaxine HCl ER 37.5 MG CAP.ER.24H 187.5 MG PO (08:24)
[2023-08-05] MEDS: Fluticasone Propionate Nasal 16 GM SPRAY 1 SPRAY NOSTRIL-B (08:26)
[2023-08-05] MEDS: Buprenorphine/Naloxone 8/2 mg FILM 1 FILM BUCCAL ×2 (08:26→14:49)
--- NOTE | 2023-08-05 16:15 | HO.PSYCHPN ---
Subjective Subjective Date of Service: 08/05/23 Reason For Visit: crisis Interim History: calm, cooperative. c/o back pain. agreeable to have another lidocaine patch placed. reports slept about 4 hours. has arranged for a ride at 11 on morning. advised to see PCP for referral for pain mgmt once he discharges. per staff, dep 6 anx 9. attending groups. heavy PRN use. slept about 3 hours overnight. c/o 9/10 back pain. Mental Status Exam Mental Status Exam Narrative: Pt is alert and oriented; behavior is calm; dressed in hospital attire, poor hygiene; eye contact appropriate; Speech is normal rate, volume and prosody and not pressured; thought process is organized and goal directed; Thought content is on tx; otherwise pertinent to relevant topics and without any delusional content, paranoid ideations or grandiosity; no SI/HI/VH/AH expressed. Diagnostics Vital Signs (24Hr): Vital Signs - 24 hr 08/04/23 18:00 08/04/23 23:45 08/05/23 07:00 Temperature 96.5 F L 97.5 F Pulse Rate 94 99 101 H Respiratory Rate 16 18 18 Blood Pressure 144/92 H 144/92 H 131/88 Pulse Oximetry 95 98 94 Oxygen Delivery Method Room Air Room Air Room Air BMI result Body Mass Index 39.1 Labs 07/29/23 15:09 07/31/23 08:26 Imaging Radiology Impressions: ITS Impressions Venous Duplex 07/29/23 15:47 IMPRESSION: No DVT demonstrated in the right lower extremity. Medications Medications Current Medications Acetaminophen (Acetaminophen 325 Mg Tablet) 975 mg PO Q6H PRN PRN Reason: Headache/Pain Mild Scale (1-3) Last Admin: 08/05/23 04:15 Dose: 975 mg Al Hydroxide/Mg Hydroxide (Magnesium Hydrox/Alum Hydrox 30 Ml Oral.Susp) 30 ml PO Q6H PRN PRN Reason: Heartburn/Nausea Apixaban (Apixaban 5 Mg Tablet) 5 mg PO BID [facility] Last Admin: 08/05/23 08:22 Dose: 5 mg Buprenorphine/Naloxone (Buprenorphine/Naloxone 8/2 Mg Film) 1 film BUCCAL BID@0900,1500 [facility] Last Admin: 08/05/23 14:49 Dose: 1 film Buspirone HCl (Buspirone Hcl 10 Mg Tablet) 30 mg PO BID [facility] Last Admin: 08/05/23 08:21 Dose: 30 mg Clonazepam (Clonazepam 1 Mg Tablet) 1 mg PO QID PRN PRN Reason: Anxiety Last Admin: 08/05/23 12:33 Dose: 1 mg Cyclobenzaprine HCl (Cyclobenzaprine Hcl 10 Mg Tablet) 10 mg PO Q4H PRN PRN Reason: muscle pain Last Admin: 08/05/23 12:32 Dose: 10 mg Fluticasone Propionate (Fluticasone Propionate Nasal 16 Gm [place]) 1 spray NOSTRIL-B DAILY [facility] Last Admin: 08/05/23 08:26 Dose: 1 spray Gabapentin (Gabapentin 400 Mg Capsule) 800 mg PO TID [facility] Last Admin: 08/05/23 14:48 Dose: 800 mg Lidocaine (Lidocaine 4 % Patch Adh..Patch) 2 patch TRANSDERMA DAILY PRN; Protocol PRN Reason: lower back pain Magnesium Hydroxide (Milk Of Magnesia 30 Ml Oral.Susp) 30 ml PO DAILY PRN PRN Reason: Constipation Nicotine (Nicotine 21 Mg Patch.Td24) 21 mg TRANSDERMA DAILY [facility] Last Admin: 08/05/23 08:20 Dose: 21 mg Nicotine Polacrilex (Nicotine Polacrilex 2 Mg Gum) 4 mg BUCCAL Q2H PRN PRN Reason: nicotine cravings Olanzapine (Olanzapine 5 Mg Tablet) 5 mg PO BEDTIME [facility] Last Admin: 08/04/23 21:04 Dose: 5 mg Omeprazole (Omeprazole 40 Mg Capsule.Dr) 40 mg PO DAILY@0630 [facility] Last Admin: 08/05/23 05:10 Dose: 40 mg Ondansetron HCl (Ondansetron Odt 4 Mg Tab.Rapdis) 4 mg TRANSLINGU Q6H PRN PRN Reason: Nausea and Vomiting Last Admin: 07/31/23 12:10 Dose: 4 mg Saliva Substitute (Dry Mouth [place] 60 Ml [place]) 1 spray MUCOUS MEM Q2H PRN PRN Reason: Dry Mouth Trazodone HCl (Trazodone Hcl 100 Mg Tablet) 100 mg PO BEDTIME [facility] Last Admin: 08/04/23 21:04 Dose: 100 mg Venlafaxine HCl (Venlafaxine Hcl Er 37.5 Mg Cap.Er.24h) 187.5 mg PO DAILY [facility] Last Admin: 08/05/23 08:24 Dose: 187.5 mg Zolpidem Tartrate (Zolpidem Tartrate 5 Mg Tablet) 5 mg PO BEDTIME PRN PRN Reason: insomnia Last Admin: 08/04/23 22:10 Dose: 5 mg Allergies Allergies Allergy/AdvReac Type Severity Reaction Status Date / Time No Known Allergies Allergy Verified 06/29/23 12:53 Assessment & Plan Assessment & Plan (1) MDD (major depressive disorder), recurrent severe, without psychosis: Status: Acute Code(s): F33.2 - Major depressive disorder, recurrent severe without psychotic features (2) PINA (generalized anxiety disorder): Status: Acute Code(s): F41.1 - Generalized anxiety disorder (3) Obsessive-compulsive disorder with good or fair insight: Status: Acute Code(s): F42.9 - Obsessive-compulsive disorder, unspecified (4) Opioid use disorder, moderate, in early remission, on maintenance therapy: Status: Acute Code(s): F11.21 - Opioid dependence, in remission Plan Patient is a 58 year old male with hx of MDD, PINA, OCD and opioid use disorder who was recently on M5 (06/2023) who presented to [facility] ER d/t swelling in his right foot and back pain, while being treated he endorsed SI and depression. Plan: CV 15 minute safety checks Continue home medications encourage groups possible referral to PHP? discharge planning 08/01: Pt reports feeling really depressed and anxious ; pt stated, I feel like this because I'm back here again. I want to be home . attending groups, keeping to self. denies SI/HI/VH/AH. 23: increase effexor to 150 mg daily as of tomorrow, per pt request. increase tylenol PRN to 975 each for pain. otherwise continue current mgmt. reports leg swelling has not improved. 08/03: continue current mgmt. stable. 08/04: increase effexor XR to 187.5 as of tomorrow. otherwise continue current mgmt. mood improved. chronic pain remains. ordered TEDs for B/L LE 1+ pitting edema. 08/05: stable. mood improved. continue current mgmt. plan to discharge . Reason for continued inpatient stay Substantial Risk for: inability to function and rapid decompensation Time Spent With Patient Time: Total time managing care of this patient today __25__ minutes.
[2023-08-05 19:50] VITALS: BP 141/101; PULSE 100; RESP 16; TEMP 36.3; O2SAT 94
[2023-08-05] MEDS: OLANZapine 5 MG TABLET PO (20:35)
[2023-08-05] MEDS: Zolpidem Tartrate 5 MG TABLET PO (20:35)
[2023-08-05] MEDS: traZODone HCL 100 MG TABLET PO (20:35)
[2023-08-05] MEDS: Ondansetron ODT 4 MG TAB.RAPDIS TRANSLINGU (22:34)
[2023-08-06] MEDS: clonazePAM 1 MG TABLET PO ×3 (05:21→16:39)
[2023-08-06] MEDS: Cyclobenzaprine HCl 10 MG TABLET PO ×3 (05:22→20:50)
[2023-08-06] MEDS: Acetaminophen 325 MG TABLET 975 MG PO (05:23)
[2023-08-06] MEDS: Omeprazole 40 MG CAPSULE.DR PO (05:35)
[2023-08-06 07:35] VITALS: BP 130/90; PULSE 108; TEMP 36.1; O2SAT 94
[2023-08-06] MEDS: Buprenorphine/Naloxone 8/2 mg FILM 1 FILM BUCCAL ×2 (08:39→14:34)
[2023-08-06] MEDS: busPIRone HCl 10 MG TABLET 30 MG PO ×2 (08:40→20:49)
[2023-08-06] MEDS: Venlafaxine HCl ER 37.5 MG CAP.ER.24H 187.5 MG PO (08:40)
[2023-08-06] MEDS: Gabapentin 400 MG CAPSULE 800 MG PO ×3 (08:40→20:50)
[2023-08-06] MEDS: Apixaban 5 MG TABLET PO ×2 (08:40→20:49)
[2023-08-06] MEDS: Fluticasone Propionate Nasal 16 GM SPRAY 1 SPRAY NOSTRIL-B (08:41)
[2023-08-06] MEDS: Nicotine 21 MG PATCH.TD24 TRANSDERMA (08:41)
[2023-08-06] MEDS: Lidocaine 4 % Patch ADH..PATCH 2 PATCH TRANSDERMA (10:37)
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
[2023-08-06 19:50] VITALS: BP 140/85; PULSE 95; RESP 16; TEMP 36.1; O2SAT 92
[2023-08-06] MEDS: traZODone HCL 100 MG TABLET PO (20:50)
[2023-08-06] MEDS: OLANZapine 5 MG TABLET PO (20:50)
[2023-08-07] MEDS: Cyclobenzaprine HCl 10 MG TABLET PO ×2 (02:52→08:25)
[2023-08-07] MEDS: clonazePAM 1 MG TABLET PO ×2 (02:53→08:25)
[2023-08-07] MEDS: Omeprazole 40 MG CAPSULE.DR PO (06:14)
[2023-08-07 07:20] VITALS: BP 123/76; PULSE 103; RESP 16; TEMP 36; O2SAT 92
[2023-08-07] MEDS: Nicotine 21 MG PATCH.TD24 TRANSDERMA (08:25)
[2023-08-07] MEDS: Gabapentin 400 MG CAPSULE 800 MG PO (08:25)
[2023-08-07] MEDS: Apixaban 5 MG TABLET PO (08:25)
[2023-08-07] MEDS: Fluticasone Propionate Nasal 16 GM SPRAY 1 SPRAY NOSTRIL-B (08:25)
[2023-08-07] MEDS: Buprenorphine/Naloxone 8/2 mg FILM 1 FILM BUCCAL (08:25)
[2023-08-07] MEDS: Venlafaxine HCl ER 75 MG CAP.ER.24H 225 MG PO (08:26)
[2023-08-07] MEDS: busPIRone HCl 10 MG TABLET 30 MG PO (08:26)
[2023-08-07] MEDS: Lidocaine 4 % Patch ADH..PATCH 2 PATCH TRANSDERMA (08:36)
== END 2023-08-07 10:51 | disposition home or self-care (01) | DRG 885 ==
LOC: HO.ED 07-30 15:38 → HO.PADLT16 07-30 16:07
PROVIDERS: Emergency Medicine; Physician Assistant; Admitting Provider Registered Nurse; Emergency Provider Emergency Medicine Emergency Medical Services; Visit Provider Psychiatry & Neurology Psychiatry
DX: F33.1 Major depressive disorder, recurrent, moderate (principal); R45.851 Suicidal ideations; F11.20 Opioid dependence, uncomplicated; F41.1 Generalized anxiety disorder; F42.9 Obsessive-compulsive disorder, unspecified; G47.33 Obstructive sleep apnea (adult) (pediatric); G89.4 Chronic pain syndrome; F17.210 Nicotine dependence, cigarettes, uncomplicated; Z20.822 Contact with and (suspected) exposure to COVID-19; Z71.6 Tobacco abuse counseling; Z79.01 Long term (current) use of anticoagulants; Z79.899 Other long term (current) drug therapy
CPT/HCPCS: 36415; 80053; 80061; 80143; 80179; 80307; 81001; 83690; 83880; 85025; 85610; 85730; 87635; 93005; 93971; 99285; S9485

== ENCOUNTER → 2023-07-29 14:40 | Outpatient (BNV) | payer MEDICARE, MEDICAID, SELFPAY | PROVIDERS: Emergency Provider Emergency Medicine Emergency Medical Services; Visit Provider Internal Medicine Cardiovascular Disease | DX: M79.604 Pain in right leg (principal) | CPT/HCPCS: 93010 ==

== ENCOUNTER → 2023-07-30 16:05 | Outpatient (BNV) | payer MEDICARE, MEDICAID, SELFPAY | PROVIDERS: Admitting Provider Registered Nurse; Emergency Provider Emergency Medicine Emergency Medical Services; Visit Provider Registered Nurse | DX: F33.2 Major depressive disorder, recurrent severe without psychotic features (principal); F11.21 Opioid dependence, in remission; F41.1 Generalized anxiety disorder; F42.9 Obsessive-compulsive disorder, unspecified | CPT/HCPCS: 90792; 99231; 99232; 99239 ==